=== PATIENT | female | born 1960 | race Caucasian/White ===

== ENCOUNTER 2018-09-24 18:08 | Observation (INO) ==
[2018-09-24] MEDS ORDERED: 0.9 % Sodium Chloride 1,000 ML IVC ONE ×2 (18:16→19:05)
[2018-09-24] MEDS ORDERED: Ondansetron 4 MG/2 ML VIAL IVP ONE (18:21)
[2018-09-24 18:43] LABS: Basophils # 0.1 K/mcL (0.0-0.2); Basophils % 0.7 %; Eosinophils # 0.2 K/mcL (0.0-0.6); Hematocrit 46.2 % (35.3-44.9); Hemoglobin 15.2 g/dL (11.5-15.4); Lymphocytes # 0.7 K/mcL (0.6-4.6); Lymphocytes % 8.2 %; Mean Corpuscular HGB Conc 32.9 g/dL (31.6-35.5); Mean Corpuscular Hemoglobin 32.3 pg (28.0-33.3); Mean Corpuscular Volume 98.1 fL (83.0-100.0); Mean Platelet Volume 10.7 fL (9.4-12.4); Monocytes # 0.9 K/mcL (0.0-1.3); Monocytes % 9.6 %; Neutrophils # 7.1 K/mcL (1.6-8.9); Platelet Count 258 K/mcL (140-400); Red Blood Count 4.71 M/mcL (3.82-4.97); Segmented Neutrophils % 78.5 %
[2018-09-24 19:20] LABS: Calcium 9.9 mg/dL (8.6-10.3); Magnesium 2.4 mg/dL (1.6-2.6)
[2018-09-24 19:21] LABS: Troponin I 0.03 ng/mL (< 0.04)
[2018-09-24] MEDS ORDERED: Insulin Regular, Human 100 UNIT/ML SQ ONE (21:13)
[2018-09-24 21:40] LABS: Bilirubin,Urine Small (Negative); Blood,Urine Small (Negative); Clarity,Urine Cloudy (Clear); Color,Urine Yellow (Yellow); Glucose,Urine (UA) 500 mg/dL (Normal); Ketones,Urine Negative (Negative); Leukocyte Esterase,Urine Negative (Negative); Nitrite,Urine Negative (Negative); PH,Urine 5.5 pH Units (5.0-8.0); Protein,Urine 100 mg/dL (Neg-Trace); Specific Gravity,Urine 1.022 (1.010-1.025); Urobilinogen,Urine Normal (Normal)
[2018-09-24 21:43] LABS: Bacteria,Urine Many per hpf (None-Few); Hyaline Casts,Urine Moderate per lpf (None-Few); Squamous Epithelial Cell,Urine Many per lpf (None-Few); WBC,Urine 15-30 per hpf (0-3)
[2018-09-24 21:49] LABS: Sodium, Urine 64.8 mEq/L
[2018-09-24] MEDS: 0.9 % Sodium Chloride 1,000 ML IVC SCH ×2 (21:49→23:54)
[2018-09-24 22:59] LABS: ABG Base Excess -4 mEq/L (-2 to 3); ABG HCO3 21 mEq/L (21-27); ABG Oxygen Saturation 97 % (95-98); ABG PCO2 35 mmHg (35-45); ABG PH 7.38 pH Units (7.32-7.45); ABG PO2 97 mmHg (85-104); ABG TCO2 22 mEq/L (20-26)
[2018-09-24] MEDS ORDERED: Naloxone 0.4 MG/ML INJ IVP PRN (23:08)
[2018-09-24] MEDS ORDERED: Acetaminophen 325 MG TABLET PO PRN (23:08)
[2018-09-24] MEDS: *HR* HYDROcodone/Acet 5/325 mg TABLET PO PRN (23:53)
[2018-09-25 01:00] LABS: Basophils # 0.1 K/mcL (0.0-0.2); Basophils % 0.6 %; Eosinophils # 0.3 K/mcL (0.0-0.6); Hematocrit 45.3 % (35.3-44.9); Hemoglobin 14.7 g/dL (11.5-15.4); Immature Granulocytes % 0.9 % (0-4); Lymphocytes # 1.2 K/mcL (0.6-4.6); Lymphocytes % 15.3 %; Mean Corpuscular HGB Conc 32.5 g/dL (31.6-35.5); Mean Corpuscular Hemoglobin 32.4 pg (28.0-33.3); Mean Corpuscular Volume 99.8 fL (83.0-100.0); Monocytes % 12.8 %; Neutrophils # 5.3 K/mcL (1.6-8.9); Platelet Count 196 K/mcL (140-400); Red Blood Count 4.54 M/mcL (3.82-4.97); Red Cell Distribution Width 13.2 % (11.5-14.5); Segmented Neutrophils % 66.4 %
[2018-09-25 01:08] LABS: INR 1.1
[2018-09-25 01:20] LABS: Albumin 3.7 g/dL (3.5-5.7); Albumin/Globulin Ratio 1.2 (1.1-2.2); Bilirubin,Total 0.3 mg/dL (0.3-1.0); Calcium 9.1 mg/dL (8.6-10.3); Chol/HDL Ratio 4.6 (0-4.9); Magnesium 2.1 mg/dL (1.6-2.6); Phosphorous 4.8 mg/dL (2.7-4.5); Potassium 3.6 mEq/L (3.5-5.1); Total Protein 6.7 g/dL (6.4-8.9)
[2018-09-25] MEDS: 0.9 % Sodium Chloride 1,000 ML IVC SCH ×2 (08:52)
[2018-09-25] MEDS: *HR* HYDROcodone/Acet 5/325 mg TABLET PO PRN (08:59)
[2018-09-25 12:07] VITALS: BP 134/60
== END 2018-09-25 13:20 | disposition home or self-care (01) ==
LOC: EMEROOARM 18:08 → 3BNU 18:08 → SUATTDRO 22:38 → 3BNU 23:09
PROVIDERS: ADMIT Internal Medicine Nephrology; ATTEND Family Medicine

== ENCOUNTER 2019-12-07 10:23 | Observation (INO) ==
[~2019-12-07 10:23] MED LIST: Povidone-Iodine 45 ML, Sodium Chloride IRRigation 1,000 ML IR ONE
[2019-12-07] MEDS ORDERED: Acetaminophen IV 1,000 MG/100 ML INFUS..BTL IVPB ONE (10:26)
[2019-12-07] MEDS ORDERED: *HR* Meperidine 25 MG/ML SYRINGE IVP PRN (10:27)
[2019-12-07] MEDS ORDERED: Ondansetron 4 MG/2 ML VIAL IVP PRN (10:27)
[2019-12-07] MEDS ORDERED: Promethazine 6.25 MG in Water for inj. (sterile) 20 ML IVPB PRN (10:27)
[2019-12-07] MEDS ORDERED: *HR* HYDROmorphone PF 0.5 MG/0.5 ML SYRINGE IVP PRN (10:27)
[2019-12-07] MEDS ORDERED: Clindamycin 900 MG/50 ML 900 MG/50 ML IV.SOLN IVPB ONE (10:50)
[2019-12-07] MEDS ORDERED: Ringers Solution, Lactated 1,000 ML IVC SCH ×2 (11:00→15:19)
[2019-12-07] MEDS ORDERED: Scopolamine Patch 1.5 MG PATCH.TD72 TD ONE (11:22)
[2019-12-07] MEDS ORDERED: *HR* FentaNYL (PF) 100 MCG/2 ML VIAL ONE (12:04)
[2019-12-07] MEDS ORDERED: Dexamethasone 4 MG/ML VIAL ONE (12:04)
[2019-12-07] MEDS ORDERED: *HR* Propofol 200 MG/20 ML VIAL IVP ONE (12:04)
[2019-12-07] MEDS ORDERED: Lidocaine -MPF 4% 5 ML AMPUL ONE (12:04)
[2019-12-07] MEDS ORDERED: *HR* Rocuronium Bromide 50 MG/5 ML VIAL ONE (12:04)
[2019-12-07] MEDS ORDERED: *HR* Midazolam HCl 2 MG/2 ML VIAL ONE (12:04)
[2019-12-07] MEDS ORDERED: Ondansetron 4 MG/2 ML VIAL ONE (12:04)
[2019-12-07] MEDS ORDERED: Lidocaine -MPF 2% 2 ML VIAL ONE (12:04)
[2019-12-07] MEDS ORDERED: Tranexamic Acid 1,000 MG/10 ML VIAL ONE (12:09)
[2019-12-07] MEDS ORDERED: Vancomycin 1,000 MG VIAL ONE (12:09)
[2019-12-07] MEDS ORDERED: Ethanol\\Acetic Acid\\Na Ace\\Ben 1,000 ML IRRIG.SOLN IR ONE (12:09)
[2019-12-07] MEDS ORDERED: *HR* PHENYLEPHRINE 1,000 MCG/10 ML SYRINGE IVP ONE (12:53)
[2019-12-07] MEDS ORDERED: *HR* HYDROMORPHONE 2 MG/ML VIAL ONE (13:34)
[2019-12-07 14:48] LABS: Hematocrit 27.4 % (35.3-44.9)
[2019-12-07 14:51] LABS: Hemoglobin 8.8 g/dL (11.5-15.4)
[2019-12-07] MEDS ORDERED: D5% in Water 1,000 ML IVC PRN (15:19)
[2019-12-07] MEDS ORDERED: Dextrose Gel 15 GM/37.5 ML TUBE PO PRN ×2 (15:19)
[2019-12-07] MEDS ORDERED: *HR* Promethazine 25 MG/ML VIAL IM PRN (15:19)
[2019-12-07] MEDS ORDERED: Sennosides 8.6 MG TABLET PO PRN (15:19)
[2019-12-07] MEDS ORDERED: MOM Conc 10 ML UD.LIQ PO PRN (15:19)
[2019-12-07] MEDS ORDERED: *HR* Dextrose 50 % in Water (Vial) 50 ML VIAL IVP PRN (15:19)
[2019-12-07] MEDS ORDERED: Naloxone 0.4 MG/ML INJ IVP PRN (15:19)
[2019-12-07] MEDS ORDERED: Ibuprofen 200 MG TABLET PO PRN (15:19)
[2019-12-07] MEDS ORDERED: HYDROcodone BIT/Homatropine 5 MG TABLET PO PRN (15:19)
[2019-12-07] MEDS ORDERED: CAFFEINE PO PRN (15:19)
[2019-12-07] MEDS ORDERED: ASPIRIN PO PRN (15:19)
[2019-12-07] MEDS: Insulin LISPRO 300 UNITS/3 ML VIAL SQ SCH ×2 (18:12→21:15)
[2019-12-07] MEDS: Ascorbic Acid 500 MG TABLET PO SCH (18:14)
[2019-12-07] MEDS: *HR* OxyCODONE Immed Rel 5 MG TABLET PO PRN (20:51)
[2019-12-07] MEDS: Clindamycin 900 MG/50 ML 900 MG/50 ML IV.SOLN IVPB SCH (20:52)
[2019-12-07] MEDS: Ondansetron 4 MG/2 ML VIAL IVP PRN (20:55)
[2019-12-08 01:53] LABS: Basophils % 0.3 %; Hematocrit 30.7 % (35.3-44.9); Hemoglobin 9.6 g/dL (11.5-15.4); Immature Granulocytes % 1.1 % (0-4); Lymphocytes # 0.5 K/mcL (0.6-4.6); Lymphocytes % 7.5 %; Mean Corpuscular HGB Conc 31.3 g/dL (31.6-35.5); Mean Corpuscular Volume 102.3 fL (83.0-100.0); Mean Platelet Volume 10.3 fL (9.4-12.4); Monocytes # 0.5 K/mcL (0.0-1.3); Monocytes % 7.3 %; Platelet Count 237 K/mcL (140-400); Red Cell Distribution Width 13.1 % (11.5-14.5); Segmented Neutrophils % 83.8 %; White Blood Count 7.1 K/mcL (4.3-11.1)
[2019-12-08 02:04] LABS: BUN/Creatinine Ratio 28 (6-26); Blood Urea Nitrogen 27 mg/dL (6-20); Calcium 8.7 mg/dL (8.6-10.3); Carbon Dioxide 26 mEq/L (23-29); Chloride 103 mEq/L (98-107); Glucose 356 mg/dL (70-105); Osmolality,Calculated 301 (280-300); Potassium 4.5 mEq/L (3.5-5.1); Sodium 136 mEq/L (136-145); eGFR For African Americans > 60 (> 60); eGFR For Non-African Americans 58 (> 60)
[2019-12-08] MEDS: Clindamycin 900 MG/50 ML 900 MG/50 ML IV.SOLN IVPB SCH (03:27)
[2019-12-08] MEDS: *HR* OxyCODONE Immed Rel 5 MG TABLET PO PRN ×4 (03:51→20:36)
[2019-12-08] MEDS: lisinopriL 20 MG TABLET PO SCH (08:02)
[2019-12-08] MEDS: Ascorbic Acid 500 MG TABLET PO SCH ×2 (08:03→17:45)
[2019-12-08] MEDS: Multivit/Ca/Min/Fe/FA 1 TAB TABLET PO SCH (08:03)
[2019-12-08] MEDS: Furosemide 40 MG TABLET PO SCH (08:03)
[2019-12-08] MEDS: hydroCHLOROthiazide 25 MG TABLET PO SCH (08:03)
[2019-12-08] MEDS: GlipiZIDE 5 MG TABLET PO SCH (08:03)
[2019-12-08] MEDS: Insulin LISPRO 300 UNITS/3 ML VIAL SQ SCH ×4 (08:04→21:06)
[2019-12-08] MEDS: (Alogliptin Benzoate [Alogliptin] 25 MG) PO SCH (09:21)
[2019-12-08] MEDS: Aspirin Enteric Coated 81 MG Tablet PO SCH (14:28)
[2019-12-09] MEDS: *HR* OxyCODONE Immed Rel 5 MG TABLET PO PRN ×3 (00:51→16:51)
[2019-12-09 05:58] LABS: Basophils % 0.5 %; Eosinophils % 3.3 %; Hemoglobin 9.5 g/dL (11.5-15.4); Immature Granulocytes % 0.4 % (0-4); Lymphocytes % 20.9 %; Mean Corpuscular HGB Conc 31.7 g/dL (31.6-35.5); Mean Corpuscular Volume 104.2 fL (83.0-100.0); Mean Platelet Volume 10.4 fL (9.4-12.4); Monocytes % 11.1 %; Platelet Count 243 K/mcL (140-400); Red Blood Count 2.88 M/mcL (3.82-4.97); Red Cell Distribution Width 13.2 % (11.5-14.5); Segmented Neutrophils % 63.8 %; White Blood Count 9.3 K/mcL (4.3-11.1)
[2019-12-09 05:59] LABS: Basophils # 0.1 K/mcL (0.0-0.2); Eosinophils # 0.3 K/mcL (0.0-0.6); Lymphocytes # 1.9 K/mcL (0.6-4.6); Neutrophils # 5.9 K/mcL (1.6-8.9)
[2019-12-09 06:18] LABS: BUN/Creatinine Ratio 38 (6-26); Blood Urea Nitrogen 33 mg/dL (6-20); Calcium 9.3 mg/dL (8.6-10.3); Carbon Dioxide 27 mEq/L (23-29); Chloride 103 mEq/L (98-107); Glucose 112 mg/dL (70-105); Osmolality,Calculated 294 (280-300); Potassium 4.1 mEq/L (3.5-5.1); Sodium 138 mEq/L (136-145); eGFR For African Americans > 60 (> 60); eGFR For Non-African Americans > 60 (> 60)
[2019-12-09] MEDS: hydroCHLOROthiazide 25 MG TABLET PO SCH (07:53)
[2019-12-09] MEDS: lisinopriL 20 MG TABLET PO SCH (07:54)
[2019-12-09] MEDS: Ascorbic Acid 500 MG TABLET PO SCH ×2 (07:54→16:46)
[2019-12-09] MEDS: Furosemide 40 MG TABLET PO SCH (07:54)
[2019-12-09] MEDS: Multivit/Ca/Min/Fe/FA 1 TAB TABLET PO SCH (07:55)
[2019-12-09] MEDS: GlipiZIDE 5 MG TABLET PO SCH (07:55)
[2019-12-09] MEDS: Aspirin Enteric Coated 81 MG Tablet PO SCH (07:55)
[2019-12-09] MEDS: Insulin LISPRO 300 UNITS/3 ML VIAL SQ SCH ×4 (09:40→21:33)
[2019-12-09] MEDS: (Alogliptin Benzoate [Alogliptin] 25 MG) PO SCH (09:41)
[2019-12-09] MEDS: Ondansetron 4 MG/2 ML VIAL IVP PRN (18:04)
[2019-12-10 04:52] LABS: Hematocrit 26.6 % (35.3-44.9); Hemoglobin 8.6 g/dL (11.5-15.4); Mean Corpuscular HGB Conc 32.3 g/dL (31.6-35.5); Mean Corpuscular Hemoglobin 32.8 pg (28.0-33.3); Mean Corpuscular Volume 101.5 fL (83.0-100.0); Platelet Count 217 K/mcL (140-400); Red Blood Count 2.62 M/mcL (3.82-4.97); Red Cell Distribution Width 13.2 % (11.5-14.5); White Blood Count 8.3 K/mcL (4.3-11.1)
[2019-12-10 05:04] LABS: BUN/Creatinine Ratio 48 (6-26); Blood Urea Nitrogen 38 mg/dL (6-20); Calcium 8.8 mg/dL (8.6-10.3); Carbon Dioxide 27 mEq/L (23-29); Chloride 102 mEq/L (98-107); Glucose 209 mg/dL (70-105); Osmolality,Calculated 295 (280-300); Potassium 4.1 mEq/L (3.5-5.1); Sodium 135 mEq/L (136-145); eGFR For African Americans > 60 (> 60); eGFR For Non-African Americans > 60 (> 60)
[2019-12-10] MEDS: Multivit/Ca/Min/Fe/FA 1 TAB TABLET PO SCH (08:17)
[2019-12-10] MEDS: Aspirin Enteric Coated 81 MG Tablet PO SCH (08:17)
[2019-12-10] MEDS: *HR* OxyCODONE Immed Rel 5 MG TABLET PO PRN ×3 (08:17→22:25)
[2019-12-10] MEDS: Furosemide 40 MG TABLET PO SCH (08:18)
[2019-12-10] MEDS: hydroCHLOROthiazide 25 MG TABLET PO SCH (08:18)
[2019-12-10] MEDS: lisinopriL 20 MG TABLET PO SCH (08:18)
[2019-12-10] MEDS: (Alogliptin Benzoate [Alogliptin] 25 MG) PO SCH (08:18)
[2019-12-10] MEDS: Insulin LISPRO 300 UNITS/3 ML VIAL SQ SCH ×4 (08:18→22:21)
[2019-12-10] MEDS: GlipiZIDE 5 MG TABLET PO SCH (08:18)
[2019-12-10] MEDS: Ascorbic Acid 500 MG TABLET PO SCH ×2 (08:18→15:59)
[2019-12-10] MEDS: Ondansetron 4 MG/2 ML VIAL IVP PRN (10:46)
[2019-12-11] MEDS: *HR* OxyCODONE Immed Rel 5 MG TABLET PO PRN (04:43)
[2019-12-11] MEDS: Aspirin Enteric Coated 81 MG Tablet PO SCH (09:00)
[2019-12-11] MEDS: Insulin LISPRO 300 UNITS/3 ML VIAL SQ SCH ×3 (09:00→17:37)
[2019-12-11] MEDS: lisinopriL 20 MG TABLET PO SCH (09:01)
[2019-12-11] MEDS: Furosemide 40 MG TABLET PO SCH (09:01)
[2019-12-11] MEDS: hydroCHLOROthiazide 25 MG TABLET PO SCH (09:01)
[2019-12-11] MEDS: (Alogliptin Benzoate [Alogliptin] 25 MG) PO SCH (09:01)
[2019-12-11] MEDS: Ascorbic Acid 500 MG TABLET PO SCH ×2 (09:01→17:38)
[2019-12-11] MEDS: GlipiZIDE 5 MG TABLET PO SCH (09:01)
[2019-12-11] MEDS: Multivit/Ca/Min/Fe/FA 1 TAB TABLET PO SCH (09:01)
[2019-12-11] MEDS: Ondansetron 4 MG/2 ML VIAL IVP PRN ×2 (10:19→22:11)
[2019-12-11] MEDS ORDERED: Scopolamine Patch 1.5 MG PATCH.TD72 TD ONE (10:20)
[2019-12-11 12:26] LABS: Hematocrit 29.4 % (35.3-44.9); Hemoglobin 9.4 g/dL (11.5-15.4)
[2019-12-12 04:53] LABS: Hematocrit 29.4 % (35.3-44.9); Hemoglobin 9.3 g/dL (11.5-15.4); Mean Corpuscular HGB Conc 31.6 g/dL (31.6-35.5); Mean Corpuscular Hemoglobin 32.1 pg (28.0-33.3); Mean Corpuscular Volume 101.4 fL (83.0-100.0); Mean Platelet Volume 9.8 fL (9.4-12.4); Platelet Count 283 K/mcL (140-400); Red Cell Distribution Width 13.3 % (11.5-14.5); White Blood Count 9.3 K/mcL (4.3-11.1)
[2019-12-12 05:07] LABS: Calcium 9.3 mg/dL (8.6-10.3); Potassium 4.4 mEq/L (3.5-5.1)
[2019-12-12 07:34] VITALS: BP 128/74
[2019-12-12] MEDS: Furosemide 40 MG TABLET PO SCH (09:08)
[2019-12-12] MEDS: lisinopriL 20 MG TABLET PO SCH (09:09)
[2019-12-12] MEDS: Aspirin Enteric Coated 81 MG Tablet PO SCH (09:09)
[2019-12-12] MEDS: Insulin LISPRO 300 UNITS/3 ML VIAL SQ SCH ×3 (09:09→11:29)
[2019-12-12] MEDS: Ascorbic Acid 500 MG TABLET PO SCH (09:09)
[2019-12-12] MEDS: GlipiZIDE 5 MG TABLET PO SCH (09:09)
[2019-12-12] MEDS: hydroCHLOROthiazide 25 MG TABLET PO SCH (09:09)
[2019-12-12] MEDS: Multivit/Ca/Min/Fe/FA 1 TAB TABLET PO SCH (09:09)
[2019-12-12] MEDS: (Alogliptin Benzoate [Alogliptin] 25 MG) PO SCH (10:20)
[2019-12-12] MEDS ORDERED: MOM Conc 10 ML UD.LIQ PO ONE (10:34)
[2019-12-12] MEDS ORDERED: Sennosides/Docusate Sodium TABLET PO ONE (10:35)
[2019-12-12 13:15] LABS: Adenovirus Not Detected (Not Detect); Bordetella Pertussis Not Detected (Not Detect); Chlamydophila pneumoniae Not Detected (Not Detect); Coronavirus 229E Not Detected (Not Detect); Coronavirus HKU1 Not Detected (Not Detect); Coronavirus NL63 Not Detected (Not Detect); Coronavirus OC43 Not Detected (Not Detect); Human Metapneumovirus Not Detected (Not Detect); Human Rhinovirus/Enterovirus Not Detected (Not Detect); Influenza A Subtype 2009 H1 Not Detected (Not Detect); Influenza B Not Detected (Not Detect); Mycoplasma pneumoniae Not Detected (Not Detect); Parainfluenza Virus 1 Not Detected (Not Detect); Parainfluenza Virus 2 Not Detected (Not Detect); Parainfluenza Virus 3 Not Detected (Not Detect); Parainfluenza Virus 4 Not Detected (Not Detect); Respiratory Syncytial Virus Not Detected (Not Detect); SARS-CoV-2 Not Detected (Not Detect)
== END 2019-12-12 15:11 ==
LOC: 3NENU 10:23 → SAMDAY 10:23 → 3NENU 15:35
PROVIDERS: ADMIT Orthopaedic Surgery; ATTEND Orthopaedic Surgery

== ENCOUNTER 2021-03-31 11:46 | Inpatient (IN) ==
[2021-03-31] MEDS: Nitroglycerin 0.4 MG TAB.SUBL SL PRN ×3 (12:30→12:45)
[2021-03-31 12:53] LABS: Basophils # 0.1 K/mcL (0.0-0.2); Basophils % 0.7 %; Eosinophils # 0.2 K/mcL (0.0-0.6); Eosinophils % 3.2 %; Hemoglobin 15.4 g/dL (11.5-15.4); Immature Granulocytes % 0.8 % (0-4); Lymphocytes # 1.2 K/mcL (0.6-4.6); Lymphocytes % 16.5 %; Mean Corpuscular HGB Conc 32.1 g/dL (31.6-35.5); Mean Corpuscular Volume 96.8 fL (83.0-100.0); Mean Platelet Volume 10.8 fL (9.4-12.4); Monocytes # 0.8 K/mcL (0.0-1.3); Monocytes % 10.4 %; Platelet Count 288 K/mcL (140-400); Red Blood Count 4.96 M/mcL (3.82-4.97); Red Cell Distribution Width 13.3 % (11.5-14.5); Segmented Neutrophils % 68.4 %; White Blood Count 7.2 K/mcL (4.3-11.1)
[2021-03-31 12:58] LABS: Prothrombin Time 11.4 Seconds (9.4-12.1)
[2021-03-31 13:01] LABS: Activated Partial Thrombo Time 35.1 Seconds (26.0-36.0)
[2021-03-31 13:05] LABS: Alanine Aminotransferase 10 Units/L (7-52); Albumin 3.5 g/dL (3.5-5.7); Albumin/Globulin Ratio 0.9 (1.1-2.2); Alkaline Phosphatase 137 Units/L (34-104); Aspartate Amino Transferase 12 Units/L (13-39); BUN/Creatinine Ratio 16 (6-26); Bilirubin,Indirect 0.3 mg/dL (0.0-1.0); Bilirubin,Total 0.3 mg/dL (0.3-1.0); Blood Urea Nitrogen 13 mg/dL (6-20); Carbon Dioxide 27 mEq/L (23-29); Chloride 100 mEq/L (98-107); Globulin 3.7 g/dL (2.4-3.5); Glucose 210 mg/dL (70-105); Lipase 26 Units/L (11-82); Osmolality,Calculated 292 (280-300); Potassium 3.5 mEq/L (3.5-5.1); Sodium 138 mEq/L (136-145); Total Protein 7.2 g/dL (6.4-8.9); Troponin I < 0.03 ng/mL (< 0.04); eGFR For African Americans > 60 (> 60); eGFR For Non-African Americans > 60 (> 60)
[2021-03-31] MEDS ORDERED: Ondansetron 4 MG/2 ML VIAL IVP ONE (13:07)
[2021-03-31] MEDS ORDERED: Isovue-370 500 ML BOTTLE IVP ONE (13:07)
[2021-03-31] MEDS ORDERED: Morphine Sulfate 2 MG/ML SYRINGE IVP ONE ×2 (13:07→16:46)
[2021-03-31] MEDS: niCARdipine 20 MG/200 ML MLS IVC SCH ×2 (13:40→17:07)
[2021-03-31] MEDS ORDERED: Nitroglycerin 0.4 MG TAB.SUBL SL ONE (16:46)
[2021-03-31] MEDS ORDERED: Naloxone 0.4 MG/ML INJ IVP PRN (17:25)
[2021-03-31] MEDS ORDERED: Dextrose Gel 15 GM/37.5 ML TUBE PO PRN ×2 (17:27)
[2021-03-31] MEDS ORDERED: D5% in Water 1,000 ML IVC PRN (17:27)
[2021-03-31] MEDS ORDERED: *HR* Dextrose 50 % in Water (Syg) 50 ML SYRINGE IVP PRN (17:27)
[2021-03-31] MEDS: lisinopriL 5 MG TABLET PO SCH (18:53)
[2021-03-31] MEDS: *HR* Heparin 5,000 UNIT/ML VIAL SQ SCH (18:53)
[2021-03-31] MEDS ORDERED: Prochlorperazine 10 MG/2 ML VIAL IVP SCH (19:00)
[2021-03-31] MEDS ORDERED: *HR* Metoprolol 5 MG/5 ML VIAL IVP ONE (23:36)
[2021-04-01 01:43] LABS: BUN/Creatinine Ratio 15 (6-26); Blood Urea Nitrogen 12 mg/dL (6-20); Calcium 8.6 mg/dL (8.6-10.3); Carbon Dioxide 20 mEq/L (23-29); Chloride 100 mEq/L (98-107); Glucose 260 mg/dL (70-105); Osmolality,Calculated 289 (280-300); Potassium 3.8 mEq/L (3.5-5.1); Sodium 135 mEq/L (136-145); Troponin I < 0.03 ng/mL (< 0.04); eGFR For African Americans > 60 (> 60); eGFR For Non-African Americans > 60 (> 60)
[2021-04-01] MEDS: *HR* Heparin 5,000 UNIT/ML VIAL SQ SCH ×3 (05:09→20:03)
[2021-04-01] MEDS: Insulin LISPRO 300 UNITS/3 ML VIAL SUBQ SCH ×3 (07:19→17:12)
[2021-04-01] MEDS: lisinopriL 5 MG TABLET PO SCH (07:37)
[2021-04-01] MEDS: Acetaminophen 325 MG TABLET PO PRN (07:51)
[2021-04-01] MEDS ORDERED: Perflutren Lipid Microsphere 1.3 ML in 0.9 % Sodium Chloride 8.7 ML IVP PRN (08:16)
[2021-04-01] MEDS ORDERED: lisinopriL 10 MG TABLET PO STA (08:20)
[2021-04-01] MEDS ORDERED: Morphine Sulfate 2 MG/ML SYRINGE IVP PRN (08:26)
[2021-04-01] MEDS ORDERED: carvediloL 6.25 MG TABLET PO SCH (09:04)
[2021-04-01] MEDS: Aspirin 81 MG TAB.CHEW PO SCH (09:19)
[2021-04-01] MEDS: NIFEdipine XL (24 HR) 60 MG TAB.ER.24 PO SCH (09:19)
[2021-04-01 11:10] LABS: Chol/HDL Ratio 4.4 (0-4.9)
[2021-04-01] MEDS: Ondansetron 4 MG/2 ML VIAL IVP PRN (12:10)
[2021-04-01] MEDS: Prochlorperazine 10 MG/2 ML VIAL IM PRN (13:47)
[2021-04-01] MEDS: Sucralfate 1 GM TABLET PO SCH (16:32)
[2021-04-02] MEDS: *HR* Heparin 5,000 UNIT/ML VIAL SQ SCH ×3 (05:10→21:33)
[2021-04-02] MEDS ORDERED: *HR* Metoprolol 5 MG/5 ML VIAL IVP ONE (06:09)
[2021-04-02] MEDS ORDERED: Regadenoson 0.4 MG/5 ML SYRINGE IVP ONE (06:33)
[2021-04-02 07:00] LABS: Basophils % 0.5 %; Eosinophils # 0.2 K/mcL (0.0-0.6); Hemoglobin 14.5 g/dL (11.5-15.4); Immature Granulocytes % 0.8 % (0-4); Lymphocytes # 1.1 K/mcL (0.6-4.6); Lymphocytes % 14.3 %; Mean Corpuscular HGB Conc 32.2 g/dL (31.6-35.5); Mean Corpuscular Hemoglobin 31.7 pg (28.0-33.3); Mean Corpuscular Volume 98.3 fL (83.0-100.0); Mean Platelet Volume 10.8 fL (9.4-12.4); Monocytes # 0.7 K/mcL (0.0-1.3); Monocytes % 9.4 %; Neutrophils # 5.7 K/mcL (1.6-8.9); Platelet Count 270 K/mcL (140-400); Red Blood Count 4.58 M/mcL (3.82-4.97); Red Cell Distribution Width 13.9 % (11.5-14.5); White Blood Count 7.9 K/mcL (4.3-11.1)
[2021-04-02 07:30] LABS: BUN/Creatinine Ratio 19 (6-26); Blood Urea Nitrogen 18 mg/dL (6-20); Calcium 9.1 mg/dL (8.6-10.3); Carbon Dioxide 29 mEq/L (23-29); Chloride 97 mEq/L (98-107); Glucose 301 mg/dL (70-105); Osmolality,Calculated 293 (280-300); Phosphorous 3.3 mg/dL (2.7-4.5); Potassium 3.4 mEq/L (3.5-5.1); Sodium 135 mEq/L (136-145); eGFR For African Americans > 60 (> 60); eGFR For Non-African Americans > 60 (> 60)
[2021-04-02] MEDS: Insulin LISPRO 300 UNITS/3 ML VIAL SUBQ SCH ×4 (08:13→21:31)
[2021-04-02] MEDS: Sucralfate 1 GM TABLET PO SCH ×2 (08:13→16:07)
[2021-04-02] MEDS: lisinopriL 5 MG TABLET PO SCH (10:43)
[2021-04-02] MEDS: Aspirin 81 MG TAB.CHEW PO SCH (10:44)
[2021-04-02] MEDS: NIFEdipine XL (24 HR) 60 MG TAB.ER.24 PO SCH (10:44)
[2021-04-02 16:02] LABS: Estimated Average Glucose 203 mg/dl; Hemoglobin A1C 8.7 %
[2021-04-02] MEDS: Acetaminophen 325 MG TABLET PO PRN (21:33)
[2021-04-03 03:31] LABS: Basophils # 0.1 K/mcL (0.0-0.2); Basophils % 0.7 %; Eosinophils # 0.3 K/mcL (0.0-0.6); Eosinophils % 2.9 %; Hematocrit 46.5 % (35.3-44.9); Hemoglobin 15.2 g/dL (11.5-15.4); Immature Granulocytes % 1.2 % (0-4); Lymphocytes # 1.4 K/mcL (0.6-4.6); Lymphocytes % 16.7 %; Mean Corpuscular HGB Conc 32.7 g/dL (31.6-35.5); Mean Corpuscular Hemoglobin 32.3 pg (28.0-33.3); Mean Corpuscular Volume 98.9 fL (83.0-100.0); Mean Platelet Volume 10.5 fL (9.4-12.4); Monocytes % 11.7 %; Neutrophils # 5.8 K/mcL (1.6-8.9); Platelet Count 251 K/mcL (140-400); Red Cell Distribution Width 13.4 % (11.5-14.5); Segmented Neutrophils % 66.8 %; White Blood Count 8.6 K/mcL (4.3-11.1)
[2021-04-03 03:45] LABS: BUN/Creatinine Ratio 19 (6-26); Blood Urea Nitrogen 14 mg/dL (6-20); Calcium 9.1 mg/dL (8.6-10.3); Carbon Dioxide 29 mEq/L (23-29); Chloride 99 mEq/L (98-107); Glucose 261 mg/dL (70-105); Magnesium 1.8 mg/dL (1.6-2.6); Osmolality,Calculated 290 (280-300); Phosphorous 2.9 mg/dL (2.7-4.5); Sodium 135 mEq/L (136-145); eGFR For African Americans > 60 (> 60); eGFR For Non-African Americans > 60 (> 60)
[2021-04-03] MEDS: *HR* Heparin 5,000 UNIT/ML VIAL SQ SCH ×3 (04:08→21:57)
[2021-04-03] MEDS: Aspirin 81 MG TAB.CHEW PO SCH (08:35)
[2021-04-03] MEDS: NIFEdipine XL (24 HR) 60 MG TAB.ER.24 PO SCH (08:35)
[2021-04-03] MEDS: lisinopriL 5 MG TABLET PO SCH (08:35)
[2021-04-03] MEDS: Sucralfate 1 GM TABLET PO SCH ×2 (08:35→15:53)
[2021-04-03] MEDS: Insulin LISPRO 300 UNITS/3 ML VIAL SUBQ SCH ×4 (08:35→22:01)
[2021-04-03] MEDS ORDERED: 0.9 % Sodium Chloride 2,000 ML ONE (11:33)
[2021-04-03] MEDS ORDERED: *HR* FentaNYL (PF) 100 MCG/2 ML VIAL ONE (11:33)
[2021-04-03] MEDS ORDERED: *HR* Heparin 10,000 UNIT/10 ML VIAL ONE (11:33)
[2021-04-03] MEDS ORDERED: ISOVUE-370 200 ML INFUS..BTL ONE (11:33)
[2021-04-03] MEDS ORDERED: Heparin 1,000 UNITS/500 mL 500 ML ONE (11:33)
[2021-04-03] MEDS ORDERED: *HR* Midazolam HCl 2 MG/2 ML VIAL ONE (11:33)
[2021-04-03] MEDS ORDERED: Nitroglycerin 1,000 MCG/5 ML VIAL IV ONE (11:34)
[2021-04-03] MEDS ORDERED: Ondansetron 4 MG/2 ML VIAL ONE (12:01)
[2021-04-03] MEDS: Furosemide 20 MG/2 ML VIAL IVP SCH ×2 (14:03→22:00)
[2021-04-03] MEDS ORDERED: DiphenhydraMINE CREAM 28.4 GM TUBE TP PRN (14:13)
[2021-04-03] MEDS: Budesonide/Formoterol 160/4.5 1 PUFF INH IH SCH (19:21)
[2021-04-04 05:36] LABS: Basophils # 0.1 K/mcL (0.0-0.2); Basophils % 0.6 %; Eosinophils # 0.3 K/mcL (0.0-0.6); Hemoglobin 14.4 g/dL (11.5-15.4); Immature Granulocytes % 1.1 % (0-4); Lymphocytes # 1.2 K/mcL (0.6-4.6); Lymphocytes % 14.3 %; Mean Corpuscular Hemoglobin 31.5 pg (28.0-33.3); Mean Corpuscular Volume 98.5 fL (83.0-100.0); Monocytes # 0.8 K/mcL (0.0-1.3); Monocytes % 9.9 %; Neutrophils # 5.9 K/mcL (1.6-8.9); Platelet Count 256 K/mcL (140-400); Red Blood Count 4.57 M/mcL (3.82-4.97); Red Cell Distribution Width 13.6 % (11.5-14.5); Segmented Neutrophils % 71.1 %; White Blood Count 8.3 K/mcL (4.3-11.1)
[2021-04-04 05:54] LABS: BUN/Creatinine Ratio 24 (6-26); Blood Urea Nitrogen 21 mg/dL (6-20); Calcium 9.3 mg/dL (8.6-10.3); Carbon Dioxide 31 mEq/L (23-29); Chloride 97 mEq/L (98-107); Glucose 228 mg/dL (70-105); Magnesium 1.8 mg/dL (1.6-2.6); Osmolality,Calculated 292 (280-300); Phosphorous 3.5 mg/dL (2.7-4.5); Potassium 4.1 mEq/L (3.5-5.1); Sodium 136 mEq/L (136-145); eGFR For African Americans > 60 (> 60); eGFR For Non-African Americans > 60 (> 60)
[2021-04-04] MEDS: *HR* Heparin 5,000 UNIT/ML VIAL SQ SCH ×3 (06:41→20:27)
[2021-04-04] MEDS: Sucralfate 1 GM TABLET PO SCH ×2 (06:41→16:29)
[2021-04-04] MEDS: Budesonide/Formoterol 160/4.5 1 PUFF INH IH SCH ×2 (08:32→19:40)
[2021-04-04] MEDS: NIFEdipine XL (24 HR) 60 MG TAB.ER.24 PO SCH (08:50)
[2021-04-04] MEDS: Aspirin 81 MG TAB.CHEW PO SCH (08:51)
[2021-04-04] MEDS: Insulin LISPRO 300 UNITS/3 ML VIAL SUBQ SCH ×4 (08:51→20:38)
[2021-04-04] MEDS: lisinopriL 5 MG TABLET PO SCH (08:51)
[2021-04-04] MEDS: Ondansetron 4 MG/2 ML VIAL IVP PRN (08:52)
[2021-04-04] MEDS: Furosemide 20 MG/2 ML VIAL IVP SCH ×2 (08:52→09:48)
[2021-04-04] MEDS: Acetaminophen 325 MG TABLET PO PRN (08:58)
[2021-04-04] MEDS ORDERED: polyethylene glycoL 3350 17 GM POWD.PACK PO PRN (11:33)
[2021-04-04] MEDS ORDERED: Sennosides 8.6 MG TABLET PO PRN (11:34)
[2021-04-04 12:38] LABS: Amorphous Sediment,Urine Few per hpf (None-Few); Bacteria,Urine Few per hpf (None-Few); Bilirubin,Urine Negative (Negative); Blood,Urine Negative (Negative); Clarity,Urine Clear (Clear); Color,Urine Light-Yellow (Yellow); Glucose,Urine (UA) 70 mg/dL (Normal); Hyaline Casts,Urine Many per lpf (None Seen); Ketones,Urine Negative (Negative); Leukocyte Esterase,Urine Negative (Negative); Mucus,Urine Few per lpf (None-Few); Nitrite,Urine Negative (Negative); Protein,Urine >=300 mg/dL (Neg-Trace); RBC,Urine 0-3 per hpf (0-3); Specific Gravity,Urine 1.015 (1.010-1.025); Squamous Epithelial Cell,Urine Few per hpf (None-Few); Urobilinogen,Urine Normal (Normal); WBC,Urine 0-3 per hpf (0-3)
[2021-04-04] MEDS: Morphine Sulfate 2 MG/ML SYRINGE IVP PRN (20:29)
[2021-04-05 02:02] LABS: Basophils # 0.1 K/mcL (0.0-0.2); Basophils % 0.9 %; Eosinophils # 0.3 K/mcL (0.0-0.6); Eosinophils % 3.2 %; Hematocrit 45.2 % (35.3-44.9); Hemoglobin 14.1 g/dL (11.5-15.4); Immature Granulocytes % 1.9 % (0-4); Lymphocytes # 1.1 K/mcL (0.6-4.6); Mean Corpuscular HGB Conc 31.2 g/dL (31.6-35.5); Mean Corpuscular Volume 99.3 fL (83.0-100.0); Mean Platelet Volume 11.1 fL (9.4-12.4); Monocytes # 0.9 K/mcL (0.0-1.3); Monocytes % 11.5 %; Neutrophils # 5.3 K/mcL (1.6-8.9); Platelet Count 252 K/mcL (140-400); Red Blood Count 4.55 M/mcL (3.82-4.97); Red Cell Distribution Width 13.8 % (11.5-14.5); Segmented Neutrophils % 68.5 %; White Blood Count 7.7 K/mcL (4.3-11.1)
[2021-04-05 02:20] LABS: Calcium 8.9 mg/dL (8.6-10.3); Magnesium 1.7 mg/dL (1.6-2.6); Phosphorous 4.2 mg/dL (2.7-4.5); Potassium 4.3 mEq/L (3.5-5.1)
[2021-04-05] MEDS: *HR* Heparin 5,000 UNIT/ML VIAL SQ SCH ×3 (04:40→20:58)
[2021-04-05] MEDS: Morphine Sulfate 2 MG/ML SYRINGE IVP PRN (04:54)
[2021-04-05] MEDS: Sucralfate 1 GM TABLET PO SCH ×2 (08:07→16:00)
[2021-04-05] MEDS: Acetaminophen 325 MG TABLET PO PRN ×3 (08:07→23:31)
[2021-04-05] MEDS: NIFEdipine XL (24 HR) 60 MG TAB.ER.24 PO SCH (08:07)
[2021-04-05] MEDS: Aspirin 81 MG TAB.CHEW PO SCH (08:07)
[2021-04-05] MEDS: lisinopriL 5 MG TABLET PO SCH (08:07)
[2021-04-05] MEDS: Insulin LISPRO 300 UNITS/3 ML VIAL SUBQ SCH ×4 (08:08→20:58)
[2021-04-05] MEDS: Furosemide 20 MG/2 ML VIAL IVP SCH (08:09)
[2021-04-05] MEDS: Budesonide/Formoterol 160/4.5 1 PUFF INH IH SCH ×2 (08:51→19:27)
[2021-04-05 11:23] LABS: BUN/Creatinine Ratio 27 (6-26); Blood Urea Nitrogen 28 mg/dL (6-20); Calcium 9.3 mg/dL (8.6-10.3); Carbon Dioxide 30 mEq/L (23-29); Chloride 97 mEq/L (98-107); Glucose 316 mg/dL (70-105); Osmolality,Calculated 298 (280-300); Potassium 4.2 mEq/L (3.5-5.1); Sodium 135 mEq/L (136-145); eGFR For African Americans > 60 (> 60); eGFR For Non-African Americans 55 (> 60)
[2021-04-06] MEDS ORDERED: *HR* LORazepam 2 MG/ML VIAL IVP ONE (03:02)
[2021-04-06 03:35] LABS: Basophils # 0.1 K/mcL (0.0-0.2); Basophils % 0.8 %; Eosinophils # 0.3 K/mcL (0.0-0.6); Eosinophils % 3.6 %; Hemoglobin 13.2 g/dL (11.5-15.4); Immature Granulocytes % 1.5 % (0-4); Lymphocytes # 1.1 K/mcL (0.6-4.6); Lymphocytes % 14.9 %; Mean Corpuscular HGB Conc 31.4 g/dL (31.6-35.5); Mean Corpuscular Hemoglobin 31.3 pg (28.0-33.3); Mean Corpuscular Volume 99.5 fL (83.0-100.0); Mean Platelet Volume 11.2 fL (9.4-12.4); Monocytes # 0.8 K/mcL (0.0-1.3); Monocytes % 10.4 %; Platelet Count 227 K/mcL (140-400); Red Blood Count 4.22 M/mcL (3.82-4.97); Red Cell Distribution Width 13.7 % (11.5-14.5); Segmented Neutrophils % 68.8 %; White Blood Count 7.3 K/mcL (4.3-11.1)
[2021-04-06 03:43] LABS: Prothrombin Time 11.6 Seconds (9.4-12.1)
[2021-04-06 03:54] LABS: BUN/Creatinine Ratio 30 (6-26); Blood Urea Nitrogen 33 mg/dL (6-20); Calcium 8.9 mg/dL (8.6-10.3); Carbon Dioxide 28 mEq/L (23-29); Chloride 97 mEq/L (98-107); Glucose 301 mg/dL (70-105); Magnesium 1.5 mg/dL (1.6-2.6); Osmolality,Calculated 297 (280-300); Potassium 4.2 mEq/L (3.5-5.1); Sodium 134 mEq/L (136-145); eGFR For African Americans > 60 (> 60); eGFR For Non-African Americans 51 (> 60)
[2021-04-06] MEDS: *HR* Heparin 5,000 UNIT/ML VIAL SQ SCH ×3 (05:12→20:32)
[2021-04-06] MEDS: Insulin LISPRO 300 UNITS/3 ML VIAL SUBQ SCH ×4 (06:51→20:33)
[2021-04-06] MEDS: Budesonide/Formoterol 160/4.5 1 PUFF INH IH SCH ×2 (07:13→20:13)
[2021-04-06] MEDS: Sucralfate 1 GM TABLET PO SCH ×2 (07:43→16:21)
[2021-04-06] MEDS: Furosemide 20 MG/2 ML VIAL IVP SCH (07:44)
[2021-04-06] MEDS: NIFEdipine XL (24 HR) 60 MG TAB.ER.24 PO SCH (07:44)
[2021-04-06] MEDS: Aspirin 81 MG TAB.CHEW PO SCH (07:44)
[2021-04-06] MEDS: lisinopriL 5 MG TABLET PO SCH (07:44)
[2021-04-06] MEDS ORDERED: Furosemide 20 MG/2 ML VIAL IVP ONE (08:45)
[2021-04-06] MEDS ORDERED: Furosemide 40 MG in 0.9 % Sodium Chloride 50 ML IV SCH (09:00)
[2021-04-06] MEDS: Isosorbide MONOnitrate (24 HR) 30 MG TAB.ER.24H PO SCH (10:45)
[2021-04-06] MEDS ORDERED: 0.9 % Sodium Chloride 500 ML IVC ONE (12:31)
[2021-04-06] MEDS ORDERED: *HR* FentaNYL (PF) 100 MCG/2 ML VIAL IVP PRN (12:31)
[2021-04-06] MEDS ORDERED: Lidocaine Viscous Oral Soln 15 ML SOLUTION MM PRN (12:31)
[2021-04-06] MEDS ORDERED: *HR* Midazolam HCl 5 MG/5 ML VIAL IVP PRN (12:31)
[2021-04-06] MEDS ORDERED: Furosemide 40 MG/4 ML VIAL IVP SCH ×2 (17:00)
[2021-04-07 01:10] LABS: Basophils # 0.1 K/mcL (0.0-0.2); Basophils % 1.3 %; Eosinophils # 0.2 K/mcL (0.0-0.6); Eosinophils % 3.2 %; Hematocrit 42.6 % (35.3-44.9); Immature Granulocytes % 1.9 % (0-4); Lymphocytes % 13.9 %; Mean Corpuscular HGB Conc 32.9 g/dL (31.6-35.5); Mean Corpuscular Hemoglobin 32.3 pg (28.0-33.3); Mean Corpuscular Volume 98.4 fL (83.0-100.0); Mean Platelet Volume 11.1 fL (9.4-12.4); Monocytes # 0.9 K/mcL (0.0-1.3); Monocytes % 12.3 %; Platelet Count 269 K/mcL (140-400); Red Blood Count 4.33 M/mcL (3.82-4.97); Red Cell Distribution Width 13.7 % (11.5-14.5); Segmented Neutrophils % 67.4 %; White Blood Count 7.5 K/mcL (4.3-11.1)
[2021-04-07 01:33] LABS: Calcium 9.5 mg/dL (8.6-10.3); Phosphorous 2.8 mg/dL (2.7-4.5); Potassium 4.6 mEq/L (3.5-5.1)
[2021-04-07] MEDS: *HR* Heparin 5,000 UNIT/ML VIAL SQ SCH ×3 (04:56→20:39)
[2021-04-07] MEDS: Budesonide/Formoterol 160/4.5 1 PUFF INH IH SCH ×2 (07:22→20:51)
[2021-04-07] MEDS: Insulin LISPRO 300 UNITS/3 ML VIAL SUBQ SCH ×4 (07:48→20:42)
[2021-04-07] MEDS: Sucralfate 1 GM TABLET PO SCH ×2 (07:49→16:59)
[2021-04-07] MEDS: Aspirin 81 MG TAB.CHEW PO SCH (07:49)
[2021-04-07] MEDS: Isosorbide MONOnitrate (24 HR) 30 MG TAB.ER.24H PO SCH (07:49)
[2021-04-07] MEDS ORDERED: valACYclovir 500 MG TABLET PO SCH (09:15)
[2021-04-07] MEDS: Ondansetron 4 MG/2 ML VIAL IVP PRN ×2 (09:17→20:40)
[2021-04-07] MEDS: valACYclovir 500 MG TABLET PO SCH ×3 (09:17→20:39)
[2021-04-07 11:49] LABS: Basophils # 0.1 K/mcL (0.0-0.2); Eosinophils # 0.2 K/mcL (0.0-0.6); Eosinophils % 3.1 %; Hematocrit 41.6 % (35.3-44.9); Hemoglobin 13.5 g/dL (11.5-15.4); Immature Granulocytes % 1.8 % (0-4); Lymphocytes % 14.5 %; Mean Corpuscular HGB Conc 32.5 g/dL (31.6-35.5); Mean Corpuscular Hemoglobin 31.9 pg (28.0-33.3); Mean Corpuscular Volume 98.3 fL (83.0-100.0); Monocytes % 14.9 %; Neutrophils # 4.3 K/mcL (1.6-8.9); Platelet Count 224 K/mcL (140-400); Red Blood Count 4.23 M/mcL (3.82-4.97); Red Cell Distribution Width 13.7 % (11.5-14.5); Segmented Neutrophils % 64.7 %; White Blood Count 6.7 K/mcL (4.3-11.1)
[2021-04-07 11:56] LABS: Prothrombin Time 11.4 Seconds (9.4-12.1)
[2021-04-07 12:10] LABS: BUN/Creatinine Ratio 32 (6-26); Blood Urea Nitrogen 33 mg/dL (6-20); Carbon Dioxide 26 mEq/L (23-29); Chloride 97 mEq/L (98-107); Chol/HDL Ratio 2.3 (0-4.9); Cholesterol 140 mg/dL (< 200); Glucose 237 mg/dL (70-105); HDL Cholesterol 60 mg/dL (40-59); LDL Cholesterol,Calculated 53 mg/dL (< 100); Osmolality,Calculated 291 (280-300); Potassium 4.4 mEq/L (3.5-5.1); Sodium 133 mEq/L (136-145); Triglycerides 133 mg/dL (< 150); eGFR For African Americans > 60 (> 60); eGFR For Non-African Americans 55 (> 60)
[2021-04-07 12:54] LABS: Estimated Average Glucose 209 mg/dl; Hemoglobin A1C 8.9 %
[2021-04-07] MEDS ORDERED: Chlorhexidine Rinse 15 ML MOUTHWASH MM SCH (21:00)
[2021-04-08] MEDS: Ondansetron 4 MG/2 ML VIAL IVP PRN ×2 (05:59→14:55)
[2021-04-08] MEDS: *HR* Heparin 5,000 UNIT/ML VIAL SQ SCH ×3 (05:59→20:08)
[2021-04-08] MEDS ORDERED: Aspirin 81 MG TAB.CHEW PO ONE (06:00)
[2021-04-08] MEDS: Budesonide/Formoterol 160/4.5 1 PUFF INH IH SCH ×2 (07:31→20:32)
[2021-04-08] MEDS: Isosorbide MONOnitrate (24 HR) 30 MG TAB.ER.24H PO SCH (07:39)
[2021-04-08] MEDS: Aspirin 81 MG TAB.CHEW PO SCH (07:39)
[2021-04-08] MEDS: valACYclovir 500 MG TABLET PO SCH ×3 (07:39→19:44)
[2021-04-08] MEDS: Sucralfate 1 GM TABLET PO SCH ×2 (07:40→16:01)
[2021-04-08] MEDS: Insulin LISPRO 300 UNITS/3 ML VIAL SUBQ SCH ×4 (07:40→19:32)
[2021-04-08] MEDS ORDERED: Chlorhexidine Rinse 15 ML MOUTHWASH MM SCH (09:00)
[2021-04-08 09:43] LABS: Basophils # 0.1 K/mcL (0.0-0.2); Basophils % 0.7 %; Eosinophils # 0.2 K/mcL (0.0-0.6); Hematocrit 43.7 % (35.3-44.9); Hemoglobin 14.2 g/dL (11.5-15.4); Immature Granulocytes % 1.2 % (0-4); Lymphocytes # 0.8 K/mcL (0.6-4.6); Mean Corpuscular HGB Conc 32.5 g/dL (31.6-35.5); Mean Corpuscular Volume 98.4 fL (83.0-100.0); Mean Platelet Volume 11.5 fL (9.4-12.4); Monocytes # 0.9 K/mcL (0.0-1.3); Monocytes % 11.2 %; Neutrophils # 5.7 K/mcL (1.6-8.9); Platelet Count 223 K/mcL (140-400); Red Blood Count 4.44 M/mcL (3.82-4.97); Red Cell Distribution Width 13.5 % (11.5-14.5); Segmented Neutrophils % 73.9 %; White Blood Count 7.7 K/mcL (4.3-11.1)
[2021-04-08 09:51] LABS: Prothrombin Time 11.4 Seconds (9.4-12.1)
[2021-04-08 09:54] LABS: Activated Partial Thrombo Time 35.8 Seconds (26.0-36.0)
[2021-04-08 09:58] LABS: BUN/Creatinine Ratio 36 (6-26); Blood Urea Nitrogen 34 mg/dL (6-20); Calcium 9.5 mg/dL (8.6-10.3); Carbon Dioxide 28 mEq/L (23-29); Chloride 97 mEq/L (98-107); Chol/HDL Ratio 2.1 (0-4.9); Cholesterol 159 mg/dL (< 200); Glucose 282 mg/dL (70-105); HDL Cholesterol 76 mg/dL (40-59); LDL Cholesterol,Calculated 62 mg/dL (< 100); Osmolality,Calculated 294 (280-300); Potassium 4.4 mEq/L (3.5-5.1); Sodium 133 mEq/L (136-145); Triglycerides 106 mg/dL (< 150); eGFR For African Americans > 60 (> 60); eGFR For Non-African Americans > 60 (> 60)
[2021-04-08 11:41] LABS: Estimated Average Glucose 212 mg/dl
[2021-04-08] MEDS: Chlorhexidine Rinse 15 ML MOUTHWASH MM SCH (19:31)
[2021-04-09] MEDS: Acetaminophen 325 MG TABLET PO PRN (00:47)
[2021-04-09 01:04] LABS: Basophils # 0.1 K/mcL (0.0-0.2); Basophils % 0.9 %; Eosinophils # 0.2 K/mcL (0.0-0.6); Eosinophils % 2.5 %; Hematocrit 44.3 % (35.3-44.9); Hemoglobin 14.2 g/dL (11.5-15.4); Immature Granulocytes % 1.1 % (0-4); Lymphocytes # 1.3 K/mcL (0.6-4.6); Lymphocytes % 15.6 %; Mean Corpuscular HGB Conc 32.1 g/dL (31.6-35.5); Mean Corpuscular Hemoglobin 31.3 pg (28.0-33.3); Mean Corpuscular Volume 97.6 fL (83.0-100.0); Mean Platelet Volume 11.2 fL (9.4-12.4); Monocytes % 11.8 %; Neutrophils # 5.8 K/mcL (1.6-8.9); Platelet Count 213 K/mcL (140-400); Red Blood Count 4.54 M/mcL (3.82-4.97); Red Cell Distribution Width 13.5 % (11.5-14.5); Segmented Neutrophils % 68.1 %; White Blood Count 8.5 K/mcL (4.3-11.1)
[2021-04-09 01:12] LABS: Prothrombin Time 11.1 Seconds (9.4-12.1)
[2021-04-09 01:28] LABS: BUN/Creatinine Ratio 32 (6-26); Blood Urea Nitrogen 29 mg/dL (6-20); Calcium 9.6 mg/dL (8.6-10.3); Carbon Dioxide 28 mEq/L (23-29); Chloride 98 mEq/L (98-107); Glucose 192 mg/dL (70-105); Magnesium 1.9 mg/dL (1.6-2.6); Osmolality,Calculated 291 (280-300); Potassium 4.3 mEq/L (3.5-5.1); Sodium 135 mEq/L (136-145); eGFR For African Americans > 60 (> 60); eGFR For Non-African Americans > 60 (> 60)
[2021-04-09] MEDS: *HR* Heparin 5,000 UNIT/ML VIAL SQ SCH ×3 (05:05→20:10)
[2021-04-09] MEDS ORDERED: Aspirin 81 MG TAB.CHEW PO ONE ×2 (06:00)
[2021-04-09] MEDS ORDERED: Vancomycin 1,750 MG/517.5 ML IV.SOLN IVPB ONE (06:00)
[2021-04-09] MEDS: Isosorbide MONOnitrate (24 HR) 30 MG TAB.ER.24H PO SCH (06:45)
[2021-04-09] MEDS: Aspirin 81 MG TAB.CHEW PO SCH (06:50)
[2021-04-09] MEDS: Chlorhexidine Rinse 15 ML MOUTHWASH MM SCH (07:11)
[2021-04-09] MEDS: Budesonide/Formoterol 160/4.5 1 PUFF INH IH SCH ×2 (07:43→20:22)
[2021-04-09] MEDS: Sucralfate 1 GM TABLET PO SCH ×2 (08:39→14:24)
[2021-04-09] MEDS: valACYclovir 500 MG TABLET PO SCH ×3 (08:39→20:10)
[2021-04-09] MEDS: Insulin LISPRO 300 UNITS/3 ML VIAL SUBQ SCH ×4 (08:40→20:11)
[2021-04-09] MEDS ORDERED: Isosorbide MONOnitrate (24 HR) 30 MG TAB.ER.24H PO ONE (08:45)
[2021-04-09] MEDS ORDERED: Furosemide 20 MG/2 ML VIAL IVP ONE (10:42)
[2021-04-09] MEDS: lisinopriL 10 MG TABLET PO SCH (11:07)
[2021-04-09] MEDS: Ondansetron 4 MG/2 ML VIAL IVP PRN (11:07)
[2021-04-09 12:26] LABS: Adenovirus Not Detected (Not Detect); Bordetella Pertussis Not Detected (Not Detect); Chlamydophila pneumoniae Not Detected (Not Detect); Coronavirus 229E Not Detected (Not Detect); Coronavirus HKU1 Not Detected (Not Detect); Coronavirus NL63 Not Detected (Not Detect); Coronavirus OC43 Not Detected (Not Detect); Human Metapneumovirus Not Detected (Not Detect); Human Rhinovirus/Enterovirus Not Detected (Not Detect); Influenza A Subtype 2009 H1 Not Detected (Not Detect); Influenza B Not Detected (Not Detect); Mycoplasma pneumoniae Not Detected (Not Detect); Parainfluenza Virus 1 Not Detected (Not Detect); Parainfluenza Virus 2 Not Detected (Not Detect); Parainfluenza Virus 3 Not Detected (Not Detect); Parainfluenza Virus 4 Not Detected (Not Detect); Respiratory Syncytial Virus Not Detected (Not Detect); SARS-CoV-2 Not Detected (Not Detect)
[2021-04-09 13:18] LABS: Amorphous Sediment,Urine Few per hpf (None-Few); Bacteria,Urine Few per hpf (None-Few); Bilirubin,Urine Negative (Negative); Blood,Urine Negative (Negative); Clarity,Urine Turbid (Clear); Color,Urine Yellow (Yellow); Glucose,Urine (UA) 70 mg/dL (Normal); Ketones,Urine Negative (Negative); Leukocyte Esterase,Urine Negative (Negative); Mucus,Urine Few per lpf (None-Few); Nitrite,Urine Negative (Negative); Protein,Urine 200 mg/dL (Neg-Trace); RBC,Urine 0-3 per hpf (0-3); Specific Gravity,Urine 1.014 (1.010-1.025); Squamous Epithelial Cell,Urine Few per hpf (None-Few); Urobilinogen,Urine Normal (Normal)
[2021-04-09] MEDS: Insulin DETEMIR 100 UNIT/ML X5UNITS SUBQ SCH (14:25)
[2021-04-09] MEDS: carvediloL 6.25 MG TABLET PO SCH (16:16)
[2021-04-10 02:14] LABS: Basophils # 0.1 K/mcL (0.0-0.2); Eosinophils # 0.2 K/mcL (0.0-0.6); Eosinophils % 2.8 %; Hematocrit 41.8 % (35.3-44.9); Hemoglobin 13.6 g/dL (11.5-15.4); Immature Granulocytes % 1.3 % (0-4); Lymphocytes # 1.8 K/mcL (0.6-4.6); Lymphocytes % 23.1 %; Mean Corpuscular HGB Conc 32.5 g/dL (31.6-35.5); Mean Corpuscular Hemoglobin 32.5 pg (28.0-33.3); Mean Corpuscular Volume 99.8 fL (83.0-100.0); Mean Platelet Volume 10.9 fL (9.4-12.4); Monocytes # 0.9 K/mcL (0.0-1.3); Monocytes % 11.1 %; Neutrophils # 4.8 K/mcL (1.6-8.9); Platelet Count 221 K/mcL (140-400); Red Blood Count 4.19 M/mcL (3.82-4.97); Red Cell Distribution Width 13.5 % (11.5-14.5); Segmented Neutrophils % 60.7 %; White Blood Count 7.8 K/mcL (4.3-11.1)
[2021-04-10 02:32] LABS: BUN/Creatinine Ratio 35 (6-26); Blood Urea Nitrogen 34 mg/dL (6-20); Carbon Dioxide 26 mEq/L (23-29); Chloride 99 mEq/L (98-107); Glucose 253 mg/dL (70-105); Magnesium 1.9 mg/dL (1.6-2.6); Osmolality,Calculated 294 (280-300); Potassium 4.3 mEq/L (3.5-5.1); Sodium 134 mEq/L (136-145); eGFR For African Americans > 60 (> 60); eGFR For Non-African Americans 58 (> 60)
[2021-04-10] MEDS: *HR* Heparin 5,000 UNIT/ML VIAL SQ SCH ×3 (05:52→21:33)
[2021-04-10] MEDS: Budesonide/Formoterol 160/4.5 1 PUFF INH IH SCH ×2 (07:13→20:40)
[2021-04-10] MEDS: Ondansetron 4 MG/2 ML VIAL IVP PRN ×2 (07:42→22:06)
[2021-04-10] MEDS: Insulin DETEMIR 100 UNIT/ML X5UNITS SUBQ SCH (07:43)
[2021-04-10] MEDS: Insulin LISPRO 300 UNITS/3 ML VIAL SUBQ SCH ×4 (07:43→21:33)
[2021-04-10] MEDS: Isosorbide MONOnitrate (24 HR) 60 MG TAB.ER.24H PO SCH (07:44)
[2021-04-10] MEDS: Aspirin 81 MG TAB.CHEW PO SCH (07:44)
[2021-04-10] MEDS: lisinopriL 10 MG TABLET PO SCH (07:44)
[2021-04-10] MEDS: valACYclovir 500 MG TABLET PO SCH ×3 (07:44→21:32)
[2021-04-10] MEDS: Sucralfate 1 GM TABLET PO SCH ×2 (07:45→15:15)
[2021-04-10] MEDS: carvediloL 6.25 MG TABLET PO SCH ×2 (07:45→15:15)
[2021-04-10] MEDS ORDERED: Sennosides 8.6 MG TABLET PO ONE (07:50)
[2021-04-10] MEDS ORDERED: Isosorbide MONOnitrate (24 HR) 60 MG TAB.ER.24H PO SCH (09:00)
[2021-04-11] MEDS: *HR* Heparin 5,000 UNIT/ML VIAL SQ SCH ×3 (06:05→20:35)
[2021-04-11] MEDS: Aspirin 81 MG TAB.CHEW PO SCH (07:41)
[2021-04-11] MEDS: lisinopriL 10 MG TABLET PO SCH (07:42)
[2021-04-11] MEDS: valACYclovir 500 MG TABLET PO SCH ×3 (07:42→19:37)
[2021-04-11] MEDS: Insulin LISPRO 300 UNITS/3 ML VIAL SUBQ SCH ×4 (07:42→19:37)
[2021-04-11] MEDS: Isosorbide MONOnitrate (24 HR) 60 MG TAB.ER.24H PO SCH (07:42)
[2021-04-11] MEDS: Sucralfate 1 GM TABLET PO SCH ×2 (07:42→16:23)
[2021-04-11] MEDS: Insulin DETEMIR 100 UNIT/ML X5UNITS SUBQ SCH (07:42)
[2021-04-11] MEDS: carvediloL 6.25 MG TABLET PO SCH ×2 (07:42→16:24)
[2021-04-11] MEDS: Ondansetron 4 MG/2 ML VIAL IVP PRN ×2 (08:04→18:16)
[2021-04-11] MEDS: Morphine Sulfate 2 MG/ML SYRINGE IVP PRN ×2 (08:04→18:16)
[2021-04-11] MEDS: Budesonide/Formoterol 160/4.5 1 PUFF INH IH SCH ×2 (08:13→20:00)
[2021-04-11] MEDS ORDERED: Insulin DETEMIR 100 UNIT/ML X5UNITS SUBQ ONE (10:58)
[2021-04-11] MEDS ORDERED: Milk and Molasses Enema 200 ML RC ONE (13:00)
[2021-04-12] MEDS: Ondansetron 4 MG/2 ML VIAL IVP PRN ×3 (01:23→20:30)
[2021-04-12] MEDS: Morphine Sulfate 2 MG/ML SYRINGE IVP PRN (01:23)
[2021-04-12 04:25] LABS: Basophils # 0.1 K/mcL (0.0-0.2); Basophils % 0.6 %; Eosinophils # 0.3 K/mcL (0.0-0.6); Eosinophils % 2.5 %; Hematocrit 40.3 % (35.3-44.9); Hemoglobin 12.9 g/dL (11.5-15.4); Lymphocytes # 1.5 K/mcL (0.6-4.6); Lymphocytes % 14.4 %; Mean Corpuscular Hemoglobin 31.7 pg (28.0-33.3); Mean Platelet Volume 10.8 fL (9.4-12.4); Monocytes # 0.9 K/mcL (0.0-1.3); Monocytes % 9.4 %; Neutrophils # 7.2 K/mcL (1.6-8.9); Platelet Count 239 K/mcL (140-400); Red Blood Count 4.07 M/mcL (3.82-4.97); Red Cell Distribution Width 13.4 % (11.5-14.5); Segmented Neutrophils % 72.1 %
[2021-04-12 04:39] LABS: BUN/Creatinine Ratio 29 (6-26); Blood Urea Nitrogen 26 mg/dL (6-20); Calcium 9.2 mg/dL (8.6-10.3); Carbon Dioxide 30 mEq/L (23-29); Chloride 100 mEq/L (98-107); Glucose 245 mg/dL (70-105); Osmolality,Calculated 295 (280-300); Potassium 4.3 mEq/L (3.5-5.1); Sodium 136 mEq/L (136-145); eGFR For African Americans > 60 (> 60); eGFR For Non-African Americans > 60 (> 60)
[2021-04-12] MEDS: *HR* Heparin 5,000 UNIT/ML VIAL SQ SCH ×3 (05:58→20:25)
[2021-04-12] MEDS: Prochlorperazine 10 MG/2 ML VIAL IM PRN (06:26)
[2021-04-12] MEDS: Insulin LISPRO 300 UNITS/3 ML VIAL SUBQ SCH ×4 (07:32→20:49)
[2021-04-12] MEDS: Sucralfate 1 GM TABLET PO SCH ×2 (07:33→15:31)
[2021-04-12] MEDS: carvediloL 6.25 MG TABLET PO SCH ×2 (07:33→16:21)
[2021-04-12] MEDS: valACYclovir 500 MG TABLET PO SCH ×3 (08:11→20:26)
[2021-04-12] MEDS: lisinopriL 10 MG TABLET PO SCH (08:11)
[2021-04-12] MEDS: Isosorbide MONOnitrate (24 HR) 60 MG TAB.ER.24H PO SCH (08:12)
[2021-04-12] MEDS: Aspirin 81 MG TAB.CHEW PO SCH (08:12)
[2021-04-12] MEDS: Budesonide/Formoterol 160/4.5 1 PUFF INH IH SCH ×2 (08:18→20:04)
[2021-04-12] MEDS: Insulin DETEMIR 100 UNIT/ML X5UNITS SUBQ SCH (08:28)
[2021-04-12 13:38] LABS: Basophils # 0.1 K/mcL (0.0-0.2); Basophils % 0.5 %; Eosinophils # 0.2 K/mcL (0.0-0.6); Eosinophils % 1.6 %; Hemoglobin 12.9 g/dL (11.5-15.4); Immature Granulocytes % 1.1 % (0-4); Lymphocytes # 1.2 K/mcL (0.6-4.6); Lymphocytes % 11.5 %; Mean Corpuscular HGB Conc 32.3 g/dL (31.6-35.5); Mean Corpuscular Hemoglobin 32.2 pg (28.0-33.3); Mean Corpuscular Volume 99.8 fL (83.0-100.0); Mean Platelet Volume 10.8 fL (9.4-12.4); Monocytes # 0.8 K/mcL (0.0-1.3); Monocytes % 7.9 %; Neutrophils # 8.2 K/mcL (1.6-8.9); Platelet Count 241 K/mcL (140-400); Red Blood Count 4.01 M/mcL (3.82-4.97); Red Cell Distribution Width 13.3 % (11.5-14.5); Segmented Neutrophils % 77.4 %; White Blood Count 10.6 K/mcL (4.3-11.1)
[2021-04-12 13:45] LABS: INR 1.1; Prothrombin Time 11.9 Seconds (9.4-12.1)
[2021-04-12 13:47] LABS: Activated Partial Thrombo Time 29.5 Seconds (26.0-36.0)
[2021-04-12 13:57] LABS: BUN/Creatinine Ratio 26 (6-26); Blood Urea Nitrogen 23 mg/dL (6-20); Calcium 9.1 mg/dL (8.6-10.3); Carbon Dioxide 31 mEq/L (23-29); Chloride 99 mEq/L (98-107); Chol/HDL Ratio 2.2 (0-4.9); Cholesterol 127 mg/dL (< 200); Glucose 214 mg/dL (70-105); HDL Cholesterol 58 mg/dL (40-59); LDL Cholesterol,Calculated 43 mg/dL (< 100); Osmolality,Calculated 288 (280-300); Potassium 4.3 mEq/L (3.5-5.1); Sodium 134 mEq/L (136-145); Triglycerides 131 mg/dL (< 150); eGFR For African Americans > 60 (> 60); eGFR For Non-African Americans > 60 (> 60)
[2021-04-12 15:02] LABS: Estimated Average Glucose 212 mg/dl
[2021-04-12] MEDS: Chlorhexidine Rinse 15 ML MOUTHWASH MM SCH (20:25)
[2021-04-13] MEDS: Ondansetron 4 MG/2 ML VIAL IVP PRN ×3 (04:44→20:25)
[2021-04-13 04:45] LABS: Basophils % 0.4 %; Eosinophils # 0.2 K/mcL (0.0-0.6); Eosinophils % 1.8 %; Hematocrit 37.3 % (35.3-44.9); Immature Granulocytes % 1.3 % (0-4); Lymphocytes # 1.6 K/mcL (0.6-4.6); Lymphocytes % 15.1 %; Mean Corpuscular HGB Conc 32.2 g/dL (31.6-35.5); Mean Corpuscular Volume 99.5 fL (83.0-100.0); Mean Platelet Volume 10.7 fL (9.4-12.4); Monocytes % 9.4 %; Neutrophils # 7.5 K/mcL (1.6-8.9); Platelet Count 243 K/mcL (140-400); Red Blood Count 3.75 M/mcL (3.82-4.97); Red Cell Distribution Width 13.5 % (11.5-14.5); White Blood Count 10.4 K/mcL (4.3-11.1)
[2021-04-13] MEDS: *HR* Heparin 5,000 UNIT/ML VIAL SQ SCH ×3 (04:45→19:41)
[2021-04-13 05:03] LABS: BUN/Creatinine Ratio 26 (6-26); Blood Urea Nitrogen 27 mg/dL (6-20); Calcium 9.1 mg/dL (8.6-10.3); Carbon Dioxide 31 mEq/L (23-29); Chloride 99 mEq/L (98-107); Glucose 255 mg/dL (70-105); Osmolality,Calculated 294 (280-300); Potassium 4.4 mEq/L (3.5-5.1); Sodium 135 mEq/L (136-145); eGFR For African Americans > 60 (> 60); eGFR For Non-African Americans 55 (> 60)
[2021-04-13] MEDS: Aspirin 81 MG TAB.CHEW PO ONE ×2 (05:53→06:26)
[2021-04-13] MEDS ORDERED: Vancomycin 1,500 MG/265 ML IV.SOLN IVPB ONE (06:00)
[2021-04-13] MEDS ORDERED: NiCARdipine 2.5 MG/10 ML Syringe IVPB ONE (06:11)
[2021-04-13] MEDS ORDERED: *HR* Midazolam HCl 5 MG/5 ML VIAL IVP ONE (06:18)
[2021-04-13] MEDS ORDERED: *HR* FentaNYL (PF) 1,000 MCG/20 ML VIAL ONE (06:18)
[2021-04-13] MEDS ORDERED: *HR* Rocuronium Bromide 50 MG/5 ML VIAL ONE ×2 (06:19→11:42)
[2021-04-13] MEDS ORDERED: EPINEPHrine 1 MG/ML VIAL ONE (06:22)
[2021-04-13] MEDS ORDERED: *HR* Etomidate 20 MG/10 ML AMPUL IVP ONE (06:22)
[2021-04-13] MEDS ORDERED: Tranexamic Acid 1,000 MG/10 ML VIAL ONE (06:22)
[2021-04-13] MEDS ORDERED: Protamine Sulfate 250 MG/25 ML VIAL IVP ONE (06:22)
[2021-04-13] MEDS ORDERED: Albumin Human 5% 12.5 GM/250 ML IV.SOLN ONE (06:22)
[2021-04-13] MEDS ORDERED: D5% in Water 250 ML ONE (06:22)
[2021-04-13] MEDS ORDERED: *HR* DOBUTamine HCl 250 MG/20 ML VIAL ONE (06:23)
[2021-04-13] MEDS ORDERED: niCARdipine 40 MG/200 ML MLS IVC ONE (06:23)
[2021-04-13] MEDS ORDERED: Vancomycin 1,000 MG VIAL ONE (06:50)
[2021-04-13] MEDS ORDERED: Papaverine 60 MG/2 ML VIAL IVP ONE (06:50)
[2021-04-13] MEDS: Chlorhexidine Rinse 15 ML MOUTHWASH MM SCH (07:18)
[2021-04-13] MEDS: Budesonide/Formoterol 160/4.5 1 PUFF INH IH SCH ×2 (07:49→19:48)
[2021-04-13] MEDS ORDERED: Norepinephrine 4 MG in 0.9 % Sodium Chloride 250 ML IVC PRN (08:15)
[2021-04-13] MEDS ORDERED: Buckersberg's Blood Cardioplegia PF SCH (08:15)
[2021-04-13] MEDS ORDERED: del Nido Cardioplegia Solution PF ONE (08:15)
[2021-04-13] MEDS ORDERED: del Nido Cardioplegia Solution PF SCH (08:15)
[2021-04-13] MEDS ORDERED: Heparin 15,000 UNIT in 0.9 % Sodium Chloride 500 ML IV ONE (08:15)
[2021-04-13] MEDS: Insulin LISPRO 300 UNITS/3 ML VIAL SUBQ SCH ×4 (08:52→19:39)
[2021-04-13] MEDS: Sucralfate 1 GM TABLET PO SCH ×2 (08:52→16:19)
[2021-04-13] MEDS ORDERED: ceFAZolin 2,000 MG in Water for inj. (sterile) 20 ML IVP ONE (09:39)
[2021-04-13 10:02] LABS: ABG Base Excess 3 mEq/L (-2 to 3); ABG Chloride 100 mEq/L (98-107); ABG Glucose 185 mg/dL (60-95); ABG HCO3 31 mEq/L (21-27); ABG Ionized Calcium 1.23 mmol/L (1.15-1.35); ABG Oxygen Saturation 100 % (95-98); ABG PCO2 62 mmHg (35-45); ABG PH 7.31 pH Units (7.32-7.45); ABG PO2 265 mmHg (85-104); ABG TCO2 33 mEq/L (20-26)
[2021-04-13] MEDS ORDERED: *HR* Heparin 10,000 UNIT/10 ML VIAL IR ONE (10:25)
[2021-04-13] MEDS ORDERED: *HR* Magnesium Sulfate 2 GM/50 ML PIGGYBACK IVPB ONE (10:25)
[2021-04-13] MEDS ORDERED: Tranexamic Acid 1,000 MG/10 ML VIAL IR ONE (10:25)
[2021-04-13] MEDS ORDERED: Heparin 1,000 UNITS/500 mL IV.SOLN IR ONE (10:25)
[2021-04-13] MEDS ORDERED: Mannitol 25% vial 12.5 GM/50 ML VIAL IVPB ONE (10:25)
[2021-04-13] MEDS ORDERED: Albumin Human 25% 25 GM/100 ML IV.SOLN IVPB ONE (10:25)
[2021-04-13] MEDS ORDERED: Lidocaine 2% Syringe 100 MG/5 ML IVP ONE (10:25)
[2021-04-13] MEDS ORDERED: *HR* Phenylephrine 10 MG/ML VIAL IVC ONE (10:25)
[2021-04-13 10:42] LABS: ABG Base Excess 3 mEq/L (-2 to 3); ABG Chloride 99 mEq/L (98-107); ABG Glucose 180 mg/dL (60-95); ABG HCO3 27 mEq/L (21-27); ABG Ionized Calcium 1.22 mmol/L (1.15-1.35); ABG Oxygen Saturation 99 % (95-98); ABG PCO2 38 mmHg (35-45); ABG PH 7.46 pH Units (7.32-7.45); ABG PO2 134 mmHg (85-104); ABG TCO2 29 mEq/L (20-26)
[2021-04-13 11:24] LABS: ABG Base Excess 3 mEq/L (-2 to 3); ABG Chloride 97 mEq/L (98-107); ABG Glucose 140 mg/dL (60-95); ABG HCO3 26 mEq/L (21-27); ABG Ionized Calcium 1.07 mmol/L (1.15-1.35); ABG Oxygen Saturation 100 % (95-98); ABG PCO2 35 mmHg (35-45); ABG PH 7.48 pH Units (7.32-7.45); ABG PO2 585 mmHg (85-104); ABG TCO2 27 mEq/L (20-26)
[2021-04-13 11:27] LABS: ABG Base Excess 5 mEq/L (-2 to 3); ABG Chloride 99 mEq/L (98-107); ABG Glucose 144 mg/dL (60-95); ABG HCO3 28 mEq/L (21-27); ABG Ionized Calcium 1.16 mmol/L (1.15-1.35); ABG Oxygen Saturation 100 % (95-98); ABG PCO2 37 mmHg (35-45); ABG PH 7.49 pH Units (7.32-7.45); ABG PO2 547 mmHg (85-104); ABG TCO2 30 mEq/L (20-26)
[2021-04-13 11:52] LABS: ABG Base Excess 3 mEq/L (-2 to 3); ABG Chloride 101 mEq/L (98-107); ABG Glucose 151 mg/dL (60-95); ABG HCO3 27 mEq/L (21-27); ABG Ionized Calcium 1.16 mmol/L (1.15-1.35); ABG Oxygen Saturation 100 % (95-98); ABG PCO2 35 mmHg (35-45); ABG PH 7.49 pH Units (7.32-7.45); ABG PO2 573 mmHg (85-104); ABG TCO2 28 mEq/L (20-26)
[2021-04-13 12:26] LABS: ABG Base Excess 2 mEq/L (-2 to 3); ABG Chloride 103 mEq/L (98-107); ABG Glucose 166 mg/dL (60-95); ABG HCO3 26 mEq/L (21-27); ABG Ionized Calcium 1.15 mmol/L (1.15-1.35); ABG Oxygen Saturation 100 % (95-98); ABG PCO2 41 mmHg (35-45); ABG PH 7.42 pH Units (7.32-7.45); ABG PO2 529 mmHg (85-104); ABG TCO2 28 mEq/L (20-26)
[2021-04-13 12:57] LABS: ABG Base Excess -1 mEq/L (-2 to 3); ABG Chloride 107 mEq/L (98-107); ABG Glucose 150 mg/dL (60-95); ABG HCO3 22 mEq/L (21-27); ABG Ionized Calcium 1.15 mmol/L (1.15-1.35); ABG Oxygen Saturation 100 % (95-98); ABG PCO2 27 mmHg (35-45); ABG PH 7.53 pH Units (7.32-7.45); ABG PO2 624 mmHg (85-104); ABG TCO2 23 mEq/L (20-26)
[2021-04-13] MEDS: CeFAZolin 2,000 MG/120 ML BAG IVPB ONE ×2 (13:00→15:26)
[2021-04-13 13:36] LABS: ABG Base Excess -2 mEq/L (-2 to 3); ABG Chloride 105 mEq/L (98-107); ABG Glucose 177 mg/dL (60-95); ABG HCO3 24 mEq/L (21-27); ABG Ionized Calcium 1.21 mmol/L (1.15-1.35); ABG Oxygen Saturation 95 % (95-98); ABG PCO2 45 mmHg (35-45); ABG PH 7.34 pH Units (7.32-7.45); ABG PO2 83 mmHg (85-104); ABG TCO2 26 mEq/L (20-26)
[2021-04-13] MEDS ORDERED: Potassium Chloride 40 MEQ/200 ML BAG IVPB PRN (13:44)
[2021-04-13] MEDS ORDERED: *HR* Dextrose 50 % in Water (Syg) 50 ML SYRINGE IVP PRN (13:44)
[2021-04-13] MEDS ORDERED: Calcium Gluconate 1gm/50mL 1 GM/50 ML BAG IVPB PRN (13:44)
[2021-04-13] MEDS ORDERED: *HR* OxyCODONE/APAP 5/325 TABLET PO PRN (13:44)
[2021-04-13] MEDS ORDERED: Insulin Regular, Human 100 UNIT/ML IV PRN (13:44)
[2021-04-13] MEDS ORDERED: Albumin Human 5% 50.0 GM/1,000 ML IV.SOLN ONE (13:49)
[2021-04-13] MEDS: niCARdipine 20 MG/200 ML MLS IVC SCH ×3 (14:00→19:40)
[2021-04-13] MEDS: Albumin Human 5% 12.5 GM/250 ML IV.SOLN IVPB PRN ×4 (14:05→15:58)
[2021-04-13 14:20] LABS: ABG Base Excess 0 mEq/L (-2 to 3); ABG HCO3 24 mEq/L (21-27); ABG Oxygen Saturation 99 % (95-98); ABG PCO2 36 mmHg (35-45); ABG PH 7.43 pH Units (7.32-7.45); ABG PO2 153 mmHg (85-104); ABG TCO2 25 mEq/L (20-26); Blood Gas Modality AF; Blood Gas VT 600 cc
[2021-04-13 14:31] LABS: Monocytes % 4.4 %
[2021-04-13 14:50] LABS: INR 1.2; Prothrombin Time 13.6 Seconds (9.4-12.1)
[2021-04-13 14:52] LABS: BUN/Creatinine Ratio 26 (6-26); Blood Urea Nitrogen 23 mg/dL (6-20); Carbon Dioxide 25 mEq/L (23-29); Chloride 107 mEq/L (98-107); Glucose 174 mg/dL (70-105); Osmolality,Calculated 290 (280-300); Potassium 4.6 mEq/L (3.5-5.1); Sodium 136 mEq/L (136-145); eGFR For African Americans > 60 (> 60); eGFR For Non-African Americans > 60 (> 60)
[2021-04-13 14:53] LABS: Activated Partial Thrombo Time 32.4 Seconds (26.0-36.0); Basophils # 0.1 K/mcL (0.0-0.2); Basophils % 0.6 %; Eosinophils # 0.1 K/mcL (0.0-0.6); Eosinophils % 0.8 %; Hematocrit 31.3 % (35.3-44.9); Hemoglobin 10.9 g/dL (11.5-15.4); Immature Granulocytes % 3.9 % (0-4); Lymphocytes # 1.5 K/mcL (0.6-4.6); Lymphocytes % 9.4 %; Mean Corpuscular HGB Conc 34.8 g/dL (31.6-35.5); Mean Corpuscular Hemoglobin 34.7 pg (28.0-33.3); Mean Corpuscular Volume 99.7 fL (83.0-100.0); Mean Platelet Volume 11.3 fL (9.4-12.4); Monocytes # 0.7 K/mcL (0.0-1.3); Neutrophils # 12.6 K/mcL (1.6-8.9); Platelet Count 184 K/mcL (140-400); Red Blood Count 3.14 M/mcL (3.82-4.97); Red Cell Distribution Width 13.5 % (11.5-14.5); Segmented Neutrophils % 80.9 %; White Blood Count 15.6 K/mcL (4.3-11.1)
[2021-04-13] MEDS: carvediloL 6.25 MG TABLET PO SCH ×2 (15:20→16:19)
[2021-04-13] MEDS: Aspirin 81 MG TAB.CHEW PO SCH (15:20)
[2021-04-13] MEDS: Insulin DETEMIR 100 UNIT/ML X5UNITS SUBQ SCH (15:21)
[2021-04-13] MEDS: lisinopriL 10 MG TABLET PO SCH (15:21)
[2021-04-13] MEDS: valACYclovir 500 MG TABLET PO SCH ×3 (15:21→20:25)
[2021-04-13] MEDS: Isosorbide MONOnitrate (24 HR) 60 MG TAB.ER.24H PO SCH (15:21)
[2021-04-13] MEDS: Norepinephrine 4 MG/254 ML IV.SOLN IVC SCH ×2 (15:26→15:40)
[2021-04-13] MEDS: Clindamycin 900 MG/50 ML 900 MG/50 ML IV.SOLN IVPB SCH ×2 (15:57→23:18)
[2021-04-13] MEDS ORDERED: Scopolamine Patch 1.5 MG PATCH.TD72 TD ONE (16:00)
[2021-04-13] MEDS: *HR* FentaNYL (PF) 100 MCG/2 ML VIAL IVP PRN ×2 (16:47→18:47)
[2021-04-13] MEDS: Prochlorperazine 10 MG/2 ML VIAL IM PRN ×2 (17:17→23:18)
[2021-04-13 18:41] LABS: ABG Base Excess -4 mEq/L (-2 to 3); ABG HCO3 25 mEq/L (21-27); ABG Oxygen Saturation 87 % (95-98); ABG PCO2 61 mmHg (35-45); ABG PH 7.21 pH Units (7.32-7.45); ABG PO2 65 mmHg (85-104); ABG TCO2 26 mEq/L (20-26); Blood Gas Modality CPAP/PS; Blood Gas Pressure Support 8 cm H2O
[2021-04-13] MEDS ORDERED: Dexmedetomidine HCl 400 MCG/100 ML MLS IVC SCH (19:00)
[2021-04-13] MEDS: Dexmedetomidine HCl 400 MCG/100 ML MLS IVC SCH (19:36)
[2021-04-13] MEDS: FentaNYL (PF) 1,000 MCG/100 ML IV.SOLN IVC SCH ×2 (19:36→23:17)
[2021-04-13] MEDS ORDERED: Chlorhexidine Rinse 15 ML MOUTHWASH MM SCH (21:00)
[2021-04-13 21:57] LABS: ABG Base Excess -1 mEq/L (-2 to 3); ABG HCO3 22 mEq/L (21-27); ABG Oxygen Saturation 98 % (95-98); ABG PCO2 27 mmHg (35-45); ABG PH 7.52 pH Units (7.32-7.45); ABG PO2 97 mmHg (85-104); ABG TCO2 22 mEq/L (20-26); Blood Gas VT 600 cc
[2021-04-14] MEDS: niCARdipine 20 MG/200 ML MLS IVC SCH ×2 (01:04→03:53)
[2021-04-14 03:18] LABS: Basophils # 0.1 K/mcL (0.0-0.2); Basophils % 0.8 %; Eosinophils # 0.1 K/mcL (0.0-0.6); Eosinophils % 0.5 %; Hematocrit 29.3 % (35.3-44.9); Hemoglobin 9.5 g/dL (11.5-15.4); Immature Granulocytes % 1.4 % (0-4); Lymphocytes # 1.4 K/mcL (0.6-4.6); Lymphocytes % 10.5 %; Mean Corpuscular HGB Conc 32.4 g/dL (31.6-35.5); Mean Corpuscular Hemoglobin 31.8 pg (28.0-33.3); Mean Platelet Volume 10.9 fL (9.4-12.4); Monocytes # 1.3 K/mcL (0.0-1.3); Monocytes % 10.2 %; Platelet Count 175 K/mcL (140-400); Red Blood Count 2.99 M/mcL (3.82-4.97); Segmented Neutrophils % 76.6 %; White Blood Count 13.1 K/mcL (4.3-11.1)
[2021-04-14] MEDS: Dexmedetomidine HCl 400 MCG/100 ML MLS IVC SCH ×3 (03:19→20:23)
[2021-04-14 03:25] LABS: INR 1.3; Prothrombin Time 14.1 Seconds (9.4-12.1)
[2021-04-14 03:28] LABS: Activated Partial Thrombo Time 27.8 Seconds (26.0-36.0)
[2021-04-14 04:04] LABS: ABG Base Excess -1 mEq/L (-2 to 3); ABG HCO3 21 mEq/L (21-27); ABG Oxygen Saturation 99 % (95-98); ABG PCO2 27 mmHg (35-45); ABG PO2 110 mmHg (85-104); ABG TCO2 22 mEq/L (20-26); Blood Gas VT 600 cc
[2021-04-14] MEDS: FentaNYL (PF) 1,000 MCG/100 ML IV.SOLN IVC SCH (04:32)
[2021-04-14] MEDS: Ondansetron 4 MG/2 ML VIAL IVP PRN (04:39)
[2021-04-14 04:49] LABS: BUN/Creatinine Ratio 24 (6-26); Blood Urea Nitrogen 26 mg/dL (6-20); Calcium 8.3 mg/dL (8.6-10.3); Carbon Dioxide 19 mEq/L (23-29); Chloride 110 mEq/L (98-107); Glucose 131 mg/dL (70-105); Magnesium 2.7 mg/dL (1.6-2.6); Osmolality,Calculated 295 (280-300); Potassium 4.5 mEq/L (3.5-5.1); Sodium 139 mEq/L (136-145); eGFR For African Americans > 60 (> 60); eGFR For Non-African Americans 52 (> 60)
[2021-04-14 05:15] LABS: ABG Base Excess -2 mEq/L (-2 to 3); ABG HCO3 21 mEq/L (21-27); ABG Oxygen Saturation 99 % (95-98); ABG PCO2 28 mmHg (35-45); ABG PH 7.49 pH Units (7.32-7.45); ABG PO2 103 mmHg (85-104); ABG TCO2 22 mEq/L (20-26); Blood Gas VT 600 cc
[2021-04-14] MEDS: *HR* Heparin 5,000 UNIT/ML VIAL SQ SCH ×3 (06:02→20:23)
[2021-04-14] MEDS ORDERED: Furosemide 40 MG in 0.9 % Sodium Chloride 50 ML IV SCH (08:00)
[2021-04-14] MEDS: carvediloL 6.25 MG TABLET PO SCH (08:00)
[2021-04-14] MEDS: Insulin LISPRO 300 UNITS/3 ML VIAL SUBQ SCH ×3 (08:00→16:33)
[2021-04-14] MEDS: Isosorbide MONOnitrate (24 HR) 60 MG TAB.ER.24H PO SCH (08:01)
[2021-04-14] MEDS: Insulin DETEMIR 100 UNIT/ML X5UNITS SUBQ SCH (08:02)
[2021-04-14] MEDS: Sucralfate 1 GM TABLET PO SCH (08:31)
[2021-04-14] MEDS: Aspirin 81 MG TAB.CHEW PO SCH ×2 (08:31→09:16)
[2021-04-14] MEDS ORDERED: *HR* FentaNYL (PF) 100 MCG/2 ML VIAL IVP PRN (08:53)
[2021-04-14] MEDS ORDERED: Naloxone 0.4 MG/ML INJ IVP PRN (08:53)
[2021-04-14] MEDS ORDERED: *HR* OxyCODONE/APAP 5/325 TABLET PO PRN (08:53)
[2021-04-14] MEDS ORDERED: DiphenhydraMINE CREAM 28.4 GM TUBE TP PRN (08:53)
[2021-04-14] MEDS ORDERED: Acetaminophen 325 MG TABLET PO PRN (08:53)
[2021-04-14] MEDS ORDERED: Prochlorperazine 10 MG/2 ML VIAL IM PRN (08:53)
[2021-04-14] MEDS ORDERED: Albumin Human 5% 12.5 GM/250 ML IV.SOLN IVPB PRN (08:53)
[2021-04-14] MEDS ORDERED: Furosemide 40 MG/4 ML VIAL IVP SCH (09:00)
[2021-04-14] MEDS ORDERED: Aspirin Enteric Coated 81 MG Tablet PO SCH (09:00)
[2021-04-14] MEDS ORDERED: Pantoprazole 40 MG VIAL IVP SCH ×2 (09:00)
[2021-04-14] MEDS ORDERED: Chlorhexidine Rinse 15 ML MOUTHWASH MM SCH (09:00)
[2021-04-14] MEDS ORDERED: Dextrose 4 GM Chewable Tablets PO PRN ×2 (09:03)
[2021-04-14] MEDS ORDERED: D5% in Water 1,000 ML IVC PRN (09:03)
[2021-04-14] MEDS ORDERED: *HR* Dextrose 50 % in Water (Syg) 50 ML SYRINGE IVP PRN (09:03)
[2021-04-14] MEDS: Furosemide 40 MG/4 ML VIAL IVP SCH ×2 (09:21→20:22)
[2021-04-14 10:00] LABS: ABG Base Excess -1 mEq/L (-2 to 3); ABG HCO3 24 mEq/L (21-27); ABG Oxygen Saturation 100 % (95-98); ABG PCO2 40 mmHg (35-45); ABG PO2 167 mmHg (85-104); ABG TCO2 26 mEq/L (20-26)
[2021-04-14] MEDS: Budesonide/Formoterol 160/4.5 1 PUFF INH IH SCH ×2 (12:06→22:29)
[2021-04-14 18:04] LABS: ABG Base Excess -2 mEq/L (-2 to 3); ABG HCO3 22 mEq/L (21-27); ABG Oxygen Saturation 96 % (95-98); ABG PCO2 34 mmHg (35-45); ABG PH 7.41 pH Units (7.32-7.45); ABG PO2 77 mmHg (85-104); ABG TCO2 23 mEq/L (20-26)
[2021-04-14] MEDS: Norepinephrine 4 MG/254 ML IV.SOLN IVC SCH (18:55)
[2021-04-14] MEDS ORDERED: Insulin LISPRO 300 UNITS/3 ML VIAL SUBQ SCH (21:00)
[2021-04-14] MEDS ORDERED: Acetaminophen IV 500 MG/50 ML BAG IVPB ONE (23:36)
[2021-04-15] MEDS: Dexmedetomidine HCl 400 MCG/100 ML MLS IVC SCH ×4 (00:07→12:44)
[2021-04-15 04:04] LABS: Basophils # 0.1 K/mcL (0.0-0.2); Basophils % 0.4 %; Hemoglobin 8.8 g/dL (11.5-15.4); Immature Granulocytes % 1.9 % (0-4); Lymphocytes # 1.5 K/mcL (0.6-4.6); Lymphocytes % 10.4 %; Mean Corpuscular HGB Conc 30.3 g/dL (31.6-35.5); Mean Corpuscular Hemoglobin 31.5 pg (28.0-33.3); Mean Corpuscular Volume 103.9 fL (83.0-100.0); Mean Platelet Volume 12.1 fL (9.4-12.4); Monocytes # 1.4 K/mcL (0.0-1.3); Monocytes % 9.7 %; Neutrophils # 10.8 K/mcL (1.6-8.9); Platelet Count 157 K/mcL (140-400); Red Blood Count 2.79 M/mcL (3.82-4.97); Red Cell Distribution Width 14.4 % (11.5-14.5); Segmented Neutrophils % 77.6 %
[2021-04-15 04:06] LABS: INR 1.6; Prothrombin Time 17.6 Seconds (9.4-12.1)
[2021-04-15 04:12] LABS: Calcium 8.5 mg/dL (8.6-10.3)
[2021-04-15 04:49] LABS: Magnesium 2.7 mg/dL (1.6-2.6)
[2021-04-15] MEDS: *HR* Heparin 5,000 UNIT/ML VIAL SQ SCH ×3 (04:51→22:09)
[2021-04-15] MEDS ORDERED: Acetaminophen IV 500 MG/50 ML BAG IVPB ONE (06:29)
[2021-04-15] MEDS: Furosemide 40 MG/4 ML VIAL IVP SCH (06:57)
[2021-04-15] MEDS: Budesonide/Formoterol 160/4.5 1 PUFF INH IH SCH ×2 (07:52→21:20)
[2021-04-15] MEDS: Aspirin 81 MG TAB.CHEW PO SCH (07:59)
[2021-04-15] MEDS: Norepinephrine 4 MG/254 ML IV.SOLN IVC SCH (07:59)
[2021-04-15] MEDS: Insulin LISPRO 300 UNITS/3 ML VIAL SUBQ SCH ×4 (08:00→20:07)
[2021-04-15 08:38] LABS: Bilirubin,Urine Small (Negative); Blood,Urine Moderate (Negative); Clarity,Urine Slightly Cloudy (Clear); Color,Urine Yellow (Yellow); Glucose,Urine (UA) 100 mg/dL (Normal); Ketones,Urine 15 mg/dL (Negative); Leukocyte Esterase,Urine Negative (Negative); Nitrite,Urine Negative (Negative); PH,Urine 5.5 pH Units (5.0-8.0); Protein,Urine >=300 mg/dL (Neg-Trace); Specific Gravity,Urine >= 1.030 (1.010-1.025); Urobilinogen,Urine Normal (Normal)
[2021-04-15 08:45] LABS: Bacteria,Urine Few per hpf (None-Few); Hyaline Casts,Urine Many per lpf (None Seen); Mucus,Urine Moderate per lpf (None-Few); Squamous Epithelial Cell,Urine Moderate per hpf (None-Few); WBC,Urine 15-30 per hpf (0-3)
[2021-04-15] MEDS ORDERED: lisinopriL 10 MG TABLET PO SCH (09:00)
[2021-04-15] MEDS ORDERED: 0.9 % Sodium Chloride 1,000 ML ONE (09:39)
[2021-04-15] MEDS: 0.9 % Sodium Chloride 1,000 ML IVC SCH ×2 (10:51→19:55)
[2021-04-15] MEDS: Ondansetron 4 MG/2 ML VIAL IVP PRN (10:57)
[2021-04-15] MEDS ORDERED: OLANZapine 10 MG VIAL IM ONE (11:00)
[2021-04-15] MEDS ORDERED: Albuterol 2.5 MG/3 ML NEBULIZER IH PRN (11:22)
[2021-04-15] MEDS ORDERED: Vancomycin 1,750 MG in 0.9 % Sodium Chloride 250 ML IVPB SCH (13:00)
[2021-04-15] MEDS ORDERED: Artificial Tears SOLN 15 ML BOTTLE BOTH EYES PRN (13:25)
[2021-04-15] MEDS: FentaNYL (PF) 1,000 MCG/100 ML IV.SOLN IVC SCH ×2 (13:30→19:53)
[2021-04-15] MEDS: Pantoprazole 40 MG VIAL IVP SCH (14:31)
[2021-04-15 14:48] LABS: ABG Base Excess -3 mEq/L (-2 to 3); ABG HCO3 20 mEq/L (21-27); ABG Oxygen Saturation 98 % (95-98); ABG PCO2 26 mmHg (35-45); ABG PH 7.48 pH Units (7.32-7.45); ABG PO2 98 mmHg (85-104); ABG TCO2 20 mEq/L (20-26); Blood Gas Modality AF; Blood Gas VT 450 cc
[2021-04-15] MEDS: Ipratropium/Albuterol Neb 3 ML IH SCH ×2 (15:01→21:20)
[2021-04-15] MEDS ORDERED: *HR* Etomidate 20 MG/10 ML AMPUL IVP ONE (16:02)
[2021-04-15] MEDS ORDERED: *HR* Midazolam HCl 2 MG/2 ML VIAL IVP ONE (16:02)
[2021-04-15] MEDS: Artificial Tears SOLN 15 ML BOTTLE BOTH EYES SCH ×2 (17:22→20:04)
[2021-04-15] MEDS: MetroNIDAZOLE 500 MG/100 ML 500 MG/100 ML BAG IVPB SCH (17:22)
[2021-04-15] MEDS: Cefepime HCl 2,000 MG in 0.9 % Sodium Chloride 10 ML IVP SCH (17:22)
[2021-04-15] MEDS ORDERED: Cefepime HCl 1,000 MG in 0.9 % Sodium Chloride 10 ML IVP SCH (18:00)
[2021-04-15] MEDS ORDERED: Cefepime HCl 2,000 MG in 0.9 % Sodium Chloride 10 ML IVP SCH (18:00)
[2021-04-15] MEDS ORDERED: Albumin Human 5% 12.5 GM/250 ML IV.SOLN IVC SCH (18:00)
[2021-04-15] MEDS ORDERED: Cefepime HCl 1,000 MG in 0.9 % Sodium Chloride 10 ML IVPB SCH (18:00)
[2021-04-15] MEDS ORDERED: Furosemide 240 MG in 0.9 % Sodium Chloride 96 ML IVC SCH (18:30)
[2021-04-15] MEDS: Albumin 25% 25gram/100mL 25 GM/100 ML IV.SOLN IVPB SCH (18:34)
[2021-04-15] MEDS: Chlorhexidine Rinse 15 ML MOUTHWASH MM SCH (20:04)
[2021-04-15] MEDS: Insulin DETEMIR 100 UNIT/ML X5UNITS SUBQ SCH (20:09)
[2021-04-15] MEDS ORDERED: QUEtiapine Fumarate 25 MG TABLET PO SCH (21:00)
[2021-04-16] MEDS: Norepinephrine 4 MG/254 ML IV.SOLN IVC SCH ×3 (00:37→14:01)
[2021-04-16] MEDS: Artificial Tears SOLN 15 ML BOTTLE BOTH EYES SCH ×7 (00:38→23:59)
[2021-04-16] MEDS: Insulin LISPRO 300 UNITS/3 ML VIAL SUBQ SCH ×6 (00:38→20:55)
[2021-04-16] MEDS: MetroNIDAZOLE 500 MG/100 ML 500 MG/100 ML BAG IVPB SCH ×4 (00:56→23:47)
[2021-04-16] MEDS: Albumin 25% 25gram/100mL 25 GM/100 ML IV.SOLN IVPB SCH ×3 (00:56→11:55)
[2021-04-16 03:27] LABS: Basophils # 0.1 K/mcL (0.0-0.2); Basophils % 0.3 %; Eosinophils % 0.3 %; Hemoglobin 7.7 g/dL (11.5-15.4); Immature Granulocytes % 1.9 % (0-4); Lymphocytes # 1.5 K/mcL (0.6-4.6); Lymphocytes % 10.2 %; Mean Corpuscular HGB Conc 30.8 g/dL (31.6-35.5); Mean Corpuscular Hemoglobin 31.7 pg (28.0-33.3); Mean Corpuscular Volume 102.9 fL (83.0-100.0); Mean Platelet Volume 11.1 fL (9.4-12.4); Monocytes # 1.2 K/mcL (0.0-1.3); Monocytes % 7.9 %; Neutrophils # 11.5 K/mcL (1.6-8.9); Nucleated Red Blood Cells 0.1 /100 WBC (0); Platelet Count 164 K/mcL (140-400); Red Blood Count 2.43 M/mcL (3.82-4.97); Red Cell Distribution Width 14.6 % (11.5-14.5); Segmented Neutrophils % 79.4 %; White Blood Count 14.5 K/mcL (4.3-11.1)
[2021-04-16] MEDS: Ipratropium/Albuterol Neb 3 ML IH SCH ×4 (03:32→21:49)
[2021-04-16 03:59] LABS: ABG Base Excess -5 mEq/L (-2 to 3); ABG HCO3 20 mEq/L (21-27); ABG Oxygen Saturation 98 % (95-98); ABG PCO2 31 mmHg (35-45); ABG PO2 99 mmHg (85-104); ABG TCO2 21 mEq/L (20-26); Blood Gas Modality AF; Blood Gas VT 450 cc
[2021-04-16 04:03] LABS: Albumin 3.4 g/dL (3.5-5.7); Albumin/Globulin Ratio 1.5 (1.1-2.2); Bilirubin,Total 0.6 mg/dL (0.3-1.0); Globulin 2.2 g/dL (2.4-3.5); Magnesium 2.4 mg/dL (1.6-2.6); Phosphorous 2.9 mg/dL (2.7-4.5); Potassium 3.6 mEq/L (3.5-5.1); Total Protein 5.6 g/dL (6.4-8.9)
[2021-04-16] MEDS ORDERED: Amiodarone Premix 360 MG/200 ML BAG IVC ONE (04:47)
[2021-04-16] MEDS ORDERED: Amiodarone Premix 150 MG/100 ML BAG IVPB ONE (04:52)
[2021-04-16] MEDS: FentaNYL (PF) 1,000 MCG/100 ML IV.SOLN IVC SCH ×3 (05:00→22:15)
[2021-04-16] MEDS: Cefepime HCl 2,000 MG in 0.9 % Sodium Chloride 10 ML IVP SCH ×2 (05:36→17:38)
[2021-04-16] MEDS: *HR* Heparin 5,000 UNIT/ML VIAL SQ SCH ×3 (05:37→21:11)
[2021-04-16] MEDS: 0.9 % Sodium Chloride 1,000 ML IVC SCH ×3 (05:42→20:38)
[2021-04-16] MEDS ORDERED: Calcium Gluconate 1gm/50mL 1 GM/50 ML BAG IVPB PRN (06:24)
[2021-04-16] MEDS ORDERED: 0.9 % Sodium Chloride 250 ML IVC ONE (06:30)
[2021-04-16] MEDS: Calcium Gluconate 1gm/50mL 1 GM/50 ML BAG IVPB PRN (06:36)
[2021-04-16] MEDS ORDERED: 0.9 % Sodium Chloride 500 ML IVC PRN (07:04)
[2021-04-16] MEDS: Pantoprazole 40 MG VIAL IVP SCH (07:42)
[2021-04-16] MEDS: Insulin DETEMIR 100 UNIT/ML X5UNITS SUBQ SCH ×2 (07:43→20:45)
[2021-04-16] MEDS: Chlorhexidine Rinse 15 ML MOUTHWASH MM SCH ×2 (07:43→20:42)
[2021-04-16] MEDS ORDERED: Potassium Chloride Elixir 20 MEQ/15 ML UDC GTUBE ONE ×2 (07:49→11:37)
[2021-04-16] MEDS: Budesonide/Formoterol 160/4.5 1 PUFF INH IH SCH ×2 (08:03→21:50)
[2021-04-16] MEDS: Vasopressin 40 UNIT in D5% in Water 100 ML IVC SCH ×2 (08:03→19:50)
[2021-04-16] MEDS ORDERED: Perflutren Lipid Microsphere 1.3 ML in 0.9 % Sodium Chloride 8.7 ML IVP PRN (08:28)
[2021-04-16] MEDS ORDERED: 0.9 % Sodium Chloride 500 ML IVC ONE (08:36)
[2021-04-16 09:09] LABS: ABG Base Excess -4 mEq/L (-2 to 3); ABG HCO3 21 mEq/L (21-27); ABG Oxygen Saturation 98 % (95-98); ABG PCO2 40 mmHg (35-45); ABG PH 7.33 pH Units (7.32-7.45); ABG PO2 108 mmHg (85-104); ABG TCO2 23 mEq/L (20-26); Blood Gas Modality ASSIST CONTROL; Blood Gas VT 450 cc
[2021-04-16] MEDS ORDERED: Amiodarone Premix 360 MG/200 ML BAG IVC SCH (10:47)
[2021-04-16] MEDS: Aspirin 81 MG TAB.CHEW PO SCH (11:20)
[2021-04-16 13:38] LABS: Hematocrit 30.3 % (35.3-44.9)
[2021-04-16 13:40] LABS: Hemoglobin 9.5 g/dL (11.5-15.4)
[2021-04-16] MEDS: Docusate Oral Soln 100 MG/10 ML UDC GTUBE SCH (20:56)
[2021-04-17] MEDS: Insulin LISPRO 300 UNITS/3 ML VIAL SUBQ SCH ×7 (00:20→23:46)
[2021-04-17] MEDS: Ipratropium/Albuterol Neb 3 ML IH SCH ×5 (03:38→20:32)
[2021-04-17 03:48] LABS: ABG Base Excess -6 mEq/L (-2 to 3); ABG HCO3 20 mEq/L (21-27); ABG Oxygen Saturation 97 % (95-98); ABG PCO2 37 mmHg (35-45); ABG PH 7.34 pH Units (7.32-7.45); ABG PO2 96 mmHg (85-104); ABG TCO2 21 mEq/L (20-26); Blood Gas Modality AF; Blood Gas VT 450 cc
[2021-04-17] MEDS: 0.9 % Sodium Chloride 1,000 ML IVC SCH (03:53)
[2021-04-17] MEDS: Artificial Tears SOLN 15 ML BOTTLE BOTH EYES SCH ×6 (03:55→23:26)
[2021-04-17 03:56] LABS: VBG Ionized Calcium 1.13 mmol/L (1.15-1.35)
[2021-04-17 04:04] LABS: Segmented Neutrophils % 78.2 %
[2021-04-17 04:06] LABS: Basophils # 0.1 K/mcL (0.0-0.2); Basophils % 0.5 %; Eosinophils # 0.3 K/mcL (0.0-0.6); Eosinophils % 2.2 %; Hematocrit 30.1 % (35.3-44.9); Hemoglobin 9.5 g/dL (11.5-15.4); Immature Granulocytes % 1.7 % (0-4); Immature Platelets 7.7 % (1.1-6.1); Lymphocytes # 1.1 K/mcL (0.6-4.6); Lymphocytes % 9.1 %; Mean Corpuscular HGB Conc 31.6 g/dL (31.6-35.5); Mean Corpuscular Hemoglobin 31.5 pg (28.0-33.3); Mean Corpuscular Volume 99.7 fL (83.0-100.0); Monocytes % 8.3 %; Neutrophils # 9.6 K/mcL (1.6-8.9); Nucleated Red Blood Cells 0.2 /100 WBC (0); Platelet Count 139 K/mcL (140-400); Red Blood Count 3.02 M/mcL (3.82-4.97); Red Cell Distribution Width 16.5 % (11.5-14.5); White Blood Count 12.3 K/mcL (4.3-11.1)
[2021-04-17 04:32] LABS: Albumin 3.4 g/dL (3.5-5.7); Albumin/Globulin Ratio 1.7 (1.1-2.2); Bilirubin,Total 0.6 mg/dL (0.3-1.0); Calcium 7.8 mg/dL (8.6-10.3); Magnesium 2.4 mg/dL (1.6-2.6); Phosphorous 2.9 mg/dL (2.7-4.5); Potassium 3.9 mEq/L (3.5-5.1); Total Protein 5.4 g/dL (6.4-8.9)
[2021-04-17] MEDS: FentaNYL (PF) 1,000 MCG/100 ML IV.SOLN IVC SCH (04:42)
[2021-04-17] MEDS: *HR* Heparin 5,000 UNIT/ML VIAL SQ SCH ×3 (05:14→20:31)
[2021-04-17] MEDS: Cefepime HCl 2,000 MG in 0.9 % Sodium Chloride 10 ML IVP SCH ×2 (05:15→17:34)
[2021-04-17] MEDS: Budesonide/Formoterol 160/4.5 1 PUFF INH IH SCH ×2 (07:05→20:32)
[2021-04-17] MEDS: Pantoprazole 40 MG VIAL IVP SCH (07:40)
[2021-04-17] MEDS: Docusate Oral Soln 100 MG/10 ML UDC GTUBE SCH ×2 (07:40→20:31)
[2021-04-17] MEDS: Chlorhexidine Rinse 15 ML MOUTHWASH MM SCH ×2 (07:40→20:31)
[2021-04-17] MEDS: MetroNIDAZOLE 500 MG/100 ML 500 MG/100 ML BAG IVPB SCH ×3 (07:41→23:41)
[2021-04-17] MEDS: Aspirin 81 MG TAB.CHEW PO SCH (07:41)
[2021-04-17] MEDS: Morphine Sulfate 2 MG/ML SYRINGE IVP PRN (07:52)
[2021-04-17] MEDS: Insulin DETEMIR 100 UNIT/ML X5UNITS SUBQ SCH ×2 (08:38→20:33)
[2021-04-17 09:40] LABS: ABG Base Excess -7 mEq/L (-2 to 3); ABG HCO3 20 mEq/L (21-27); ABG Oxygen Saturation 93 % (95-98); ABG PCO2 48 mmHg (35-45); ABG PH 7.23 pH Units (7.32-7.45); ABG PO2 81 mmHg (85-104); ABG TCO2 21 mEq/L (20-26); Blood Gas Modality CPAP/PS; Blood Gas Pressure Support 7 cm H2O
[2021-04-17 14:45] LABS: ABG Base Excess -6 mEq/L (-2 to 3); ABG HCO3 21 mEq/L (21-27); ABG Oxygen Saturation 94 % (95-98); ABG PCO2 50 mmHg (35-45); ABG PH 7.24 pH Units (7.32-7.45); ABG PO2 85 mmHg (85-104); ABG TCO2 23 mEq/L (20-26); Blood Gas Modality CPAP/PS; Blood Gas Pressure Support 7 cm H2O
[2021-04-17 17:00] LABS: ABG Base Excess -5 mEq/L (-2 to 3); ABG HCO3 19 mEq/L (21-27); ABG Oxygen Saturation 98 % (95-98); ABG PCO2 30 mmHg (35-45); ABG PO2 105 mmHg (85-104); ABG TCO2 20 mEq/L (20-26); Blood Gas Modality ASSIST CONTROL; Blood Gas VT 450 cc
[2021-04-17] MEDS ORDERED: 0.9 % Sodium Chloride 1,000 ML IVC SCH (17:43)
[2021-04-17] MEDS: Furosemide 40 MG/4 ML VIAL IVP SCH (20:32)
[2021-04-18] MEDS: Ipratropium/Albuterol Neb 3 ML IH SCH ×9 (00:12→23:08)
[2021-04-18] MEDS: Morphine Sulfate 2 MG/ML SYRINGE IVP PRN ×2 (01:21→19:34)
[2021-04-18] MEDS: niCARdipine 20 MG/200 ML MLS IVC SCH ×12 (01:55→23:05)
[2021-04-18 03:25] LABS: VBG Ionized Calcium 1.17 mmol/L (1.15-1.35)
[2021-04-18 03:26] LABS: Basophils # 0.1 K/mcL (0.0-0.2); Basophils % 0.5 %; Eosinophils # 0.3 K/mcL (0.0-0.6); Hematocrit 29.3 % (35.3-44.9); Hemoglobin 9.5 g/dL (11.5-15.4); Lymphocytes % 9.3 %; Mean Corpuscular HGB Conc 32.4 g/dL (31.6-35.5); Mean Corpuscular Hemoglobin 32.3 pg (28.0-33.3); Mean Corpuscular Volume 99.7 fL (83.0-100.0); Mean Platelet Volume 12.2 fL (9.4-12.4); Monocytes # 0.9 K/mcL (0.0-1.3); Neutrophils # 8.4 K/mcL (1.6-8.9); Platelet Count 119 K/mcL (140-400); Red Blood Count 2.94 M/mcL (3.82-4.97); Red Cell Distribution Width 16.9 % (11.5-14.5); Segmented Neutrophils % 77.2 %; White Blood Count 10.9 K/mcL (4.3-11.1)
[2021-04-18] MEDS: Artificial Tears SOLN 15 ML BOTTLE BOTH EYES SCH ×3 (03:39→12:40)
[2021-04-18] MEDS: Insulin LISPRO 300 UNITS/3 ML VIAL SUBQ SCH ×6 (03:39→23:01)
[2021-04-18 04:06] LABS: Albumin 3.4 g/dL (3.5-5.7); Albumin/Globulin Ratio 1.5 (1.1-2.2); Bilirubin,Total 0.8 mg/dL (0.3-1.0); Calcium 8.1 mg/dL (8.6-10.3); Globulin 2.2 g/dL (2.4-3.5); Magnesium 2.4 mg/dL (1.6-2.6); Phosphorous 1.3 mg/dL (2.7-4.5); Potassium 3.3 mEq/L (3.5-5.1); Total Protein 5.6 g/dL (6.4-8.9)
[2021-04-18 04:15] LABS: ABG Base Excess -5 mEq/L (-2 to 3); ABG HCO3 21 mEq/L (21-27); ABG Oxygen Saturation 97 % (95-98); ABG PCO2 41 mmHg (35-45); ABG PH 7.31 pH Units (7.32-7.45); ABG PO2 99 mmHg (85-104); ABG TCO2 22 mEq/L (20-26); Blood Gas Modality ASSIST CONTROL; Blood Gas VT 450 cc
[2021-04-18] MEDS ORDERED: Potassium Chloride Elixir 20 MEQ/15 ML UDC GTUBE PRN (04:15)
[2021-04-18] MEDS: Cefepime HCl 2,000 MG in 0.9 % Sodium Chloride 10 ML IVP SCH ×2 (05:02→18:23)
[2021-04-18] MEDS: *HR* Heparin 5,000 UNIT/ML VIAL SQ SCH (05:03)
[2021-04-18] MEDS: Budesonide/Formoterol 160/4.5 1 PUFF INH IH SCH ×2 (08:12→20:16)
[2021-04-18] MEDS: Chlorhexidine Rinse 15 ML MOUTHWASH MM SCH ×2 (08:55→20:04)
[2021-04-18] MEDS: MetroNIDAZOLE 500 MG/100 ML 500 MG/100 ML BAG IVPB SCH ×3 (08:55→23:01)
[2021-04-18] MEDS: Pantoprazole 40 MG VIAL IVP SCH (08:55)
[2021-04-18] MEDS: Furosemide 40 MG/4 ML VIAL IVP SCH ×2 (08:55→20:04)
[2021-04-18 08:56] LABS: ABG Base Excess -6 mEq/L (-2 to 3); ABG HCO3 20 mEq/L (21-27); ABG Oxygen Saturation 90 % (95-98); ABG PCO2 41 mmHg (35-45); ABG PO2 66 mmHg (85-104); ABG TCO2 22 mEq/L (20-26); Blood Gas Modality CPAP/PS; Blood Gas Pressure Support 15 cm H2O
[2021-04-18] MEDS: Aspirin 81 MG TAB.CHEW PO SCH ×2 (08:56→10:00)
[2021-04-18] MEDS: Docusate Oral Soln 100 MG/10 ML UDC GTUBE SCH ×3 (08:56→18:44)
[2021-04-18] MEDS: Insulin DETEMIR 100 UNIT/ML X5UNITS SUBQ SCH ×2 (09:29→18:44)
[2021-04-18 11:09] LABS: Phosphorous 2.6 mg/dL (2.7-4.5)
[2021-04-18] MEDS: Ondansetron 4 MG/2 ML VIAL IVP PRN ×3 (11:35→22:16)
[2021-04-18] MEDS: *HR* Metoprolol 5 MG/5 ML VIAL IVP SCH ×3 (13:40→23:00)
[2021-04-19 03:31] LABS: Basophils # 0.1 K/mcL (0.0-0.2); Basophils % 0.8 %; Eosinophils # 0.1 K/mcL (0.0-0.6); Eosinophils % 0.9 %; Hematocrit 33.8 % (35.3-44.9); Hemoglobin 10.4 g/dL (11.5-15.4); Immature Granulocytes % 2.5 % (0-4); Lymphocytes # 1.1 K/mcL (0.6-4.6); Lymphocytes % 7.6 %; Mean Corpuscular HGB Conc 30.8 g/dL (31.6-35.5); Mean Corpuscular Hemoglobin 31.6 pg (28.0-33.3); Mean Corpuscular Volume 102.7 fL (83.0-100.0); Mean Platelet Volume 12.2 fL (9.4-12.4); Monocytes # 1.3 K/mcL (0.0-1.3); Monocytes % 9.3 %; Neutrophils # 11.2 K/mcL (1.6-8.9); Nucleated Red Blood Cells 1.3 /100 WBC (0); Platelet Count 133 K/mcL (140-400); Red Blood Count 3.29 M/mcL (3.82-4.97); Red Cell Distribution Width 17.2 % (11.5-14.5); Segmented Neutrophils % 78.9 %; White Blood Count 14.2 K/mcL (4.3-11.1)
[2021-04-19 03:44] LABS: Alanine Aminotransferase 455 Units/L (7-52); Albumin 3.5 g/dL (3.5-5.7); Albumin/Globulin Ratio 1.3 (1.1-2.2); Alkaline Phosphatase 122 Units/L (34-104); Aspartate Amino Transferase 136 Units/L (13-39); BUN/Creatinine Ratio 38 (6-26); Bilirubin,Total 0.9 mg/dL (0.3-1.0); Blood Urea Nitrogen 40 mg/dL (6-20); Calcium 8.9 mg/dL (8.6-10.3); Carbon Dioxide 24 mEq/L (23-29); Chloride 118 mEq/L (98-107); Globulin 2.8 g/dL (2.4-3.5); Glucose 127 mg/dL (70-105); Magnesium 2.5 mg/dL (1.6-2.6); Osmolality,Calculated 319 (280-300); Phosphorous 2.3 mg/dL (2.7-4.5); Potassium 3.7 mEq/L (3.5-5.1); Sodium 149 mEq/L (136-145); Total Protein 6.3 g/dL (6.4-8.9); eGFR For African Americans > 60 (> 60); eGFR For Non-African Americans 54 (> 60)
[2021-04-19 03:59] LABS: VBG Ionized Calcium 1.21 mmol/L (1.15-1.35)
[2021-04-19] MEDS: Insulin LISPRO 300 UNITS/3 ML VIAL SUBQ SCH ×6 (04:00→23:04)
[2021-04-19] MEDS: Potassium Chloride 40 MEQ/200 ML BAG IVPB PRN ×2 (04:15→15:00)
[2021-04-19] MEDS: Ipratropium/Albuterol Neb 3 ML IH SCH ×6 (04:43→23:31)
[2021-04-19] MEDS: *HR* Fondaparinux 2.5 MG/0.5 ML SYRINGE SQ SCH (05:01)
[2021-04-19] MEDS: Cefepime HCl 2,000 MG in 0.9 % Sodium Chloride 10 ML IVP SCH ×2 (05:03→17:53)
[2021-04-19] MEDS: *HR* Metoprolol 5 MG/5 ML VIAL IVP SCH ×5 (05:03→23:04)
[2021-04-19] MEDS: Budesonide/Formoterol 160/4.5 1 PUFF INH IH SCH ×2 (08:00→19:46)
[2021-04-19] MEDS: Docusate Oral Soln 100 MG/10 ML UDC GTUBE SCH ×2 (08:01→20:01)
[2021-04-19] MEDS: Aspirin 81 MG TAB.CHEW PO SCH (08:02)
[2021-04-19] MEDS: Chlorhexidine Rinse 15 ML MOUTHWASH MM SCH ×2 (08:02→19:05)
[2021-04-19] MEDS: MetroNIDAZOLE 500 MG/100 ML 500 MG/100 ML BAG IVPB SCH ×3 (08:02→23:07)
[2021-04-19] MEDS: Furosemide 40 MG/4 ML VIAL IVP SCH (08:03)
[2021-04-19] MEDS: Pantoprazole 40 MG VIAL IVP SCH (08:03)
[2021-04-19] MEDS: niCARdipine 20 MG/200 ML MLS IVC SCH ×5 (08:21→23:13)
[2021-04-19] MEDS: Insulin DETEMIR 100 UNIT/ML X5UNITS SUBQ SCH ×2 (08:28→20:01)
[2021-04-19 09:33] LABS: ABG Base Excess -5 mEq/L (-2 to 3); ABG HCO3 20 mEq/L (21-27); ABG Oxygen Saturation 90 % (95-98); ABG PCO2 35 mmHg (35-45); ABG PH 7.37 pH Units (7.32-7.45); ABG PO2 59 mmHg (85-104); ABG TCO2 21 mEq/L (20-26)
[2021-04-19] MEDS ORDERED: D5% in Water 1,000 ML IVC SCH ×2 (13:00→20:45)
[2021-04-19 13:09] LABS: Phosphorous 1.9 mg/dL (2.7-4.5); Potassium 3.8 mEq/L (3.5-5.1)
[2021-04-19] MEDS: Morphine Sulfate 2 MG/ML SYRINGE IVP PRN (13:59)
[2021-04-19] MEDS: Ondansetron 4 MG/2 ML VIAL IVP PRN (15:11)
[2021-04-19] MEDS ORDERED: Potassium Phosphate 44 MEQ in 0.9 % Sodium Chloride 250 ML IVPB ONE (15:28)
[2021-04-19] MEDS: Dexmedetomidine HCl 400 MCG/100 ML MLS IVC SCH ×2 (17:17→23:11)
[2021-04-19 18:55] LABS: BUN/Creatinine Ratio 38 (6-26); Blood Urea Nitrogen 37 mg/dL (6-20); Calcium 7.9 mg/dL (8.6-10.3); Carbon Dioxide 21 mEq/L (23-29); Chloride 119 mEq/L (98-107); Glucose 240 mg/dL (70-105); Osmolality,Calculated 323 (280-300); Potassium 4.1 mEq/L (3.5-5.1); Sodium 148 mEq/L (136-145); eGFR For African Americans > 60 (> 60); eGFR For Non-African Americans 59 (> 60)
[2021-04-19] MEDS ORDERED: QUEtiapine Fumarate 25 MG TABLET PO SCH (21:00)
[2021-04-20] MEDS: Cefepime HCl 2,000 MG in 0.9 % Sodium Chloride 10 ML IVP SCH ×3 (01:00→17:31)
[2021-04-20] MEDS: niCARdipine 20 MG/200 ML MLS IVC SCH ×4 (01:01→17:29)
[2021-04-20 03:10] LABS: VBG Ionized Calcium 1.22 mmol/L (1.15-1.35)
[2021-04-20 03:11] LABS: Basophils # 0.1 K/mcL (0.0-0.2); Basophils % 0.7 %; Eosinophils # 0.2 K/mcL (0.0-0.6); Eosinophils % 1.3 %; Hematocrit 31.8 % (35.3-44.9); Hemoglobin 9.8 g/dL (11.5-15.4); Immature Granulocytes % 2.7 % (0-4); Lymphocytes # 1.2 K/mcL (0.6-4.6); Lymphocytes % 9.8 %; Mean Corpuscular HGB Conc 30.8 g/dL (31.6-35.5); Mean Corpuscular Hemoglobin 31.5 pg (28.0-33.3); Mean Corpuscular Volume 102.3 fL (83.0-100.0); Mean Platelet Volume 11.9 fL (9.4-12.4); Monocytes # 1.1 K/mcL (0.0-1.3); Monocytes % 9.3 %; Nucleated Red Blood Cells 1.5 /100 WBC (0); Platelet Count 127 K/mcL (140-400); Red Blood Count 3.11 M/mcL (3.82-4.97); Red Cell Distribution Width 17.4 % (11.5-14.5); Segmented Neutrophils % 76.2 %; White Blood Count 11.9 K/mcL (4.3-11.1)
[2021-04-20 03:27] LABS: Albumin 3.3 g/dL (3.5-5.7); Albumin/Globulin Ratio 1.4 (1.1-2.2); Bilirubin,Total 0.7 mg/dL (0.3-1.0); Calcium 8.5 mg/dL (8.6-10.3); Globulin 2.4 g/dL (2.4-3.5); Magnesium 2.5 mg/dL (1.6-2.6); Phosphorous 2.4 mg/dL (2.7-4.5); Potassium 4.1 mEq/L (3.5-5.1); Total Protein 5.7 g/dL (6.4-8.9)
[2021-04-20] MEDS: Ipratropium/Albuterol Neb 3 ML IH SCH ×6 (03:30→23:20)
[2021-04-20] MEDS: Insulin LISPRO 300 UNITS/3 ML VIAL SUBQ SCH ×5 (03:35→20:01)
[2021-04-20] MEDS: Dexmedetomidine HCl 400 MCG/100 ML MLS IVC SCH (05:01)
[2021-04-20] MEDS: *HR* Fondaparinux 2.5 MG/0.5 ML SYRINGE SQ SCH (05:02)
[2021-04-20] MEDS: *HR* Metoprolol 5 MG/5 ML VIAL IVP SCH ×3 (06:49→17:31)
[2021-04-20] MEDS: D5% in Water 1,000 ML IVC SCH ×3 (06:50→20:00)
[2021-04-20] MEDS: Budesonide/Formoterol 160/4.5 1 PUFF INH IH SCH ×2 (07:13→19:29)
[2021-04-20] MEDS: Pantoprazole 40 MG VIAL IVP SCH (07:51)
[2021-04-20] MEDS: MetroNIDAZOLE 500 MG/100 ML 500 MG/100 ML BAG IVPB SCH ×2 (07:52→16:22)
[2021-04-20] MEDS: Aspirin 81 MG TAB.CHEW PO SCH (07:52)
[2021-04-20] MEDS: Insulin DETEMIR 100 UNIT/ML X5UNITS SUBQ SCH ×2 (08:50→19:42)
[2021-04-20 10:36] LABS: BUN/Creatinine Ratio 38 (6-26); Blood Urea Nitrogen 41 mg/dL (6-20); Calcium 8.3 mg/dL (8.6-10.3); Carbon Dioxide 24 mEq/L (23-29); Chloride 118 mEq/L (98-107); Glucose 169 mg/dL (70-105); Osmolality,Calculated 318 (280-300); Potassium 3.9 mEq/L (3.5-5.1); Sodium 147 mEq/L (136-145); eGFR For African Americans > 60 (> 60); eGFR For Non-African Americans 51 (> 60)
[2021-04-20] MEDS ORDERED: QUEtiapine Fumarate 25 MG TABLET PO ONE (11:30)
[2021-04-20] MEDS: Docusate Oral Soln 100 MG/10 ML UDC GTUBE SCH ×2 (11:45→19:41)
[2021-04-20] MEDS: Ondansetron 4 MG/2 ML VIAL IVP PRN (12:20)
[2021-04-20] MEDS: QUEtiapine Fumarate 25 MG TABLET PO SCH (19:41)
[2021-04-20] MEDS ORDERED: QUEtiapine Fumarate 25 MG TABLET PO SCH (21:00)
[2021-04-21] MEDS: Insulin LISPRO 300 UNITS/3 ML VIAL SUBQ SCH ×6 (00:14→20:09)
[2021-04-21] MEDS: *HR* Metoprolol 5 MG/5 ML VIAL IVP SCH ×5 (00:19→23:36)
[2021-04-21 03:56] LABS: Basophils # 0.1 K/mcL (0.0-0.2); Basophils % 0.7 %; Eosinophils # 0.5 K/mcL (0.0-0.6); Eosinophils % 3.7 %; Hematocrit 34.2 % (35.3-44.9); Hemoglobin 10.5 g/dL (11.5-15.4); Immature Granulocytes % 4.4 % (0-4); Lymphocytes # 1.2 K/mcL (0.6-4.6); Lymphocytes % 8.3 %; Mean Corpuscular HGB Conc 30.7 g/dL (31.6-35.5); Mean Corpuscular Hemoglobin 31.6 pg (28.0-33.3); Mean Platelet Volume 11.5 fL (9.4-12.4); Monocytes # 1.2 K/mcL (0.0-1.3); Monocytes % 8.3 %; Neutrophils # 10.9 K/mcL (1.6-8.9); Nucleated Red Blood Cells 0.6 /100 WBC (0); Platelet Count 157 K/mcL (140-400); Red Blood Count 3.32 M/mcL (3.82-4.97); Red Cell Distribution Width 17.5 % (11.5-14.5); Segmented Neutrophils % 74.6 %; White Blood Count 14.7 K/mcL (4.3-11.1)
[2021-04-21 03:56] LABS: VBG Ionized Calcium 1.25 mmol/L (1.15-1.35)
[2021-04-21] MEDS: Ipratropium/Albuterol Neb 3 ML IH SCH ×5 (04:14→20:26)
[2021-04-21 04:24] LABS: Alanine Aminotransferase 212 Units/L (7-52); Albumin 3.1 g/dL (3.5-5.7); Albumin/Globulin Ratio 1.1 (1.1-2.2); Alkaline Phosphatase 107 Units/L (34-104); Aspartate Amino Transferase 30 Units/L (13-39); BUN/Creatinine Ratio 34 (6-26); Bilirubin,Total 0.8 mg/dL (0.3-1.0); Blood Urea Nitrogen 32 mg/dL (6-20); Calcium 8.5 mg/dL (8.6-10.3); Carbon Dioxide 23 mEq/L (23-29); Chloride 114 mEq/L (98-107); Globulin 2.7 g/dL (2.4-3.5); Glucose 120 mg/dL (70-105); Magnesium 2.3 mg/dL (1.6-2.6); Osmolality,Calculated 304 (280-300); Potassium 3.6 mEq/L (3.5-5.1); Sodium 143 mEq/L (136-145); Total Protein 5.8 g/dL (6.4-8.9); eGFR For African Americans > 60 (> 60); eGFR For Non-African Americans > 60 (> 60)
[2021-04-21] MEDS: *HR* Fondaparinux 2.5 MG/0.5 ML SYRINGE SQ SCH (05:41)
[2021-04-21] MEDS: Potassium Chloride 40 MEQ/200 ML BAG IVPB PRN (05:53)
[2021-04-21] MEDS: D5% in Water 1,000 ML IVC SCH (06:51)
[2021-04-21] MEDS: Budesonide/Formoterol 160/4.5 1 PUFF INH IH SCH ×2 (07:39→20:27)
[2021-04-21] MEDS: Docusate Oral Soln 100 MG/10 ML UDC GTUBE SCH ×2 (08:02→20:09)
[2021-04-21] MEDS: Pantoprazole 40 MG VIAL IVP SCH (08:02)
[2021-04-21] MEDS: Aspirin 81 MG TAB.CHEW PO SCH (08:02)
[2021-04-21] MEDS: QUEtiapine Fumarate 25 MG TABLET PO SCH ×2 (08:02→20:08)
[2021-04-21] MEDS: Insulin DETEMIR 100 UNIT/ML X5UNITS SUBQ SCH ×2 (08:04→20:09)
[2021-04-21] MEDS: Furosemide 20 MG/2 ML VIAL IVP SCH (10:00)
[2021-04-21] MEDS: niCARdipine 20 MG/200 ML MLS IVC SCH ×7 (12:29→22:14)
[2021-04-21] MEDS ORDERED: Cefuroxime PO 500 MG TABLET PO SCH (18:00)
[2021-04-22] MEDS ORDERED: Cefepime HCl 1,000 MG in 0.9 % Sodium Chloride 10 ML IVP SCH
[2021-04-22] MEDS: Ipratropium/Albuterol Neb 3 ML IH SCH ×7 (00:18→23:40)
[2021-04-22] MEDS: Insulin LISPRO 300 UNITS/3 ML VIAL SUBQ SCH ×6 (00:35→21:40)
[2021-04-22] MEDS: Dexmedetomidine HCl 400 MCG/100 ML MLS IVC SCH (04:08)
[2021-04-22 04:10] LABS: VBG Ionized Calcium 1.22 mmol/L (1.15-1.35)
[2021-04-22 04:18] LABS: Basophils # 0.1 K/mcL (0.0-0.2); Basophils % 0.6 %; Eosinophils # 0.4 K/mcL (0.0-0.6); Eosinophils % 3.4 %; Hematocrit 33.7 % (35.3-44.9); Hemoglobin 10.4 g/dL (11.5-15.4); Immature Granulocytes % 4.7 % (0-4); Lymphocytes # 1.1 K/mcL (0.6-4.6); Lymphocytes % 9.3 %; Mean Corpuscular HGB Conc 30.9 g/dL (31.6-35.5); Mean Corpuscular Volume 103.7 fL (83.0-100.0); Mean Platelet Volume 11.4 fL (9.4-12.4); Monocytes # 1.2 K/mcL (0.0-1.3); Monocytes % 10.3 %; Neutrophils # 8.1 K/mcL (1.6-8.9); Nucleated Red Blood Cells 0.5 /100 WBC (0); Platelet Count 174 K/mcL (140-400); Red Blood Count 3.25 M/mcL (3.82-4.97); Red Cell Distribution Width 17.8 % (11.5-14.5); Segmented Neutrophils % 71.7 %; White Blood Count 11.3 K/mcL (4.3-11.1)
[2021-04-22 04:23] LABS: Alanine Aminotransferase 150 Units/L (7-52); Albumin 3.2 g/dL (3.5-5.7); Albumin/Globulin Ratio 1.3 (1.1-2.2); Alkaline Phosphatase 119 Units/L (34-104); Aspartate Amino Transferase 23 Units/L (13-39); BUN/Creatinine Ratio 30 (6-26); Bilirubin,Total 0.8 mg/dL (0.3-1.0); Blood Urea Nitrogen 26 mg/dL (6-20); Calcium 8.5 mg/dL (8.6-10.3); Carbon Dioxide 24 mEq/L (23-29); Chloride 116 mEq/L (98-107); Globulin 2.5 g/dL (2.4-3.5); Glucose 86 mg/dL (70-105); Magnesium 2.2 mg/dL (1.6-2.6); Osmolality,Calculated 304 (280-300); Phosphorous 2.9 mg/dL (2.7-4.5); Potassium 4.1 mEq/L (3.5-5.1); Sodium 145 mEq/L (136-145); Total Protein 5.7 g/dL (6.4-8.9); eGFR For African Americans > 60 (> 60); eGFR For Non-African Americans > 60 (> 60)
[2021-04-22] MEDS: niCARdipine 20 MG/200 ML MLS IVC SCH ×3 (05:46→18:09)
[2021-04-22] MEDS: *HR* Fondaparinux 2.5 MG/0.5 ML SYRINGE SQ SCH (05:47)
[2021-04-22] MEDS: *HR* Metoprolol 5 MG/5 ML VIAL IVP SCH ×2 (05:48→13:05)
[2021-04-22] MEDS: Budesonide/Formoterol 160/4.5 1 PUFF INH IH SCH ×2 (07:56→19:43)
[2021-04-22] MEDS: Furosemide 20 MG/2 ML VIAL IVP SCH (08:22)
[2021-04-22] MEDS: Insulin DETEMIR 100 UNIT/ML X5UNITS SUBQ SCH ×2 (08:27→22:00)
[2021-04-22] MEDS: Pantoprazole 40 MG VIAL IVP SCH (08:27)
[2021-04-22] MEDS: Aspirin 81 MG TAB.CHEW PO SCH (09:59)
[2021-04-22] MEDS: QUEtiapine Fumarate 25 MG TABLET PO SCH ×2 (09:59→21:38)
[2021-04-22] MEDS: Docusate Oral Soln 100 MG/10 ML UDC GTUBE SCH ×2 (10:00→21:37)
[2021-04-22] MEDS ORDERED: Furosemide 40 MG in 0.9 % Sodium Chloride 50 ML IV SCH (18:00)
[2021-04-22] MEDS: lisinopriL 10 MG TABLET PO SCH (18:08)
[2021-04-22] MEDS: Morphine Sulfate 2 MG/ML SYRINGE IVP PRN (19:45)
[2021-04-22] MEDS: Furosemide 40 MG/4 ML VIAL IVP SCH (21:38)
[2021-04-22] MEDS: *HR* LORazepam 2 MG/ML VIAL IVP PRN (21:39)
[2021-04-23] MEDS: niCARdipine 20 MG/200 ML MLS IVC SCH ×8 (01:57→23:24)
[2021-04-23] MEDS: Insulin LISPRO 300 UNITS/3 ML VIAL SUBQ SCH ×7 (03:48→23:23)
[2021-04-23 04:10] LABS: Basophils # 0.1 K/mcL (0.0-0.2); Basophils % 0.5 %; Eosinophils # 0.3 K/mcL (0.0-0.6); Hematocrit 32.6 % (35.3-44.9); Immature Granulocytes % 4.3 % (0-4); Lymphocytes # 0.7 K/mcL (0.6-4.6); Lymphocytes % 6.3 %; Mean Corpuscular HGB Conc 30.7 g/dL (31.6-35.5); Mean Corpuscular Hemoglobin 32.2 pg (28.0-33.3); Mean Corpuscular Volume 104.8 fL (83.0-100.0); Mean Platelet Volume 11.2 fL (9.4-12.4); Monocytes # 1.1 K/mcL (0.0-1.3); Monocytes % 10.4 %; Neutrophils # 8.2 K/mcL (1.6-8.9); Nucleated Red Blood Cells 0.2 /100 WBC (0); Platelet Count 167 K/mcL (140-400); Red Blood Count 3.11 M/mcL (3.82-4.97); Segmented Neutrophils % 75.5 %; White Blood Count 10.8 K/mcL (4.3-11.1)
[2021-04-23 04:28] LABS: BUN/Creatinine Ratio 32 (6-26); Blood Urea Nitrogen 30 mg/dL (6-20); Calcium 8.8 mg/dL (8.6-10.3); Carbon Dioxide 27 mEq/L (23-29); Chloride 114 mEq/L (98-107); Glucose 102 mg/dL (70-105); Osmolality,Calculated 306 (280-300); Potassium 4.3 mEq/L (3.5-5.1); Sodium 145 mEq/L (136-145); eGFR For African Americans > 60 (> 60); eGFR For Non-African Americans > 60 (> 60)
[2021-04-23] MEDS: Ipratropium/Albuterol Neb 3 ML IH SCH ×6 (05:03→23:41)
[2021-04-23] MEDS: *HR* Fondaparinux 2.5 MG/0.5 ML SYRINGE SQ SCH (06:30)
[2021-04-23] MEDS ORDERED: Acetaminophen 325 MG TABLET PO PRN (07:49)
[2021-04-23] MEDS: *HR* LORazepam 2 MG/ML VIAL IVP PRN (07:55)
[2021-04-23] MEDS: Docusate Oral Soln 100 MG/10 ML UDC GTUBE SCH ×2 (07:58→20:57)
[2021-04-23] MEDS: Budesonide/Formoterol 160/4.5 1 PUFF INH IH SCH ×2 (07:58→20:33)
[2021-04-23] MEDS: lisinopriL 10 MG TABLET PO SCH (07:58)
[2021-04-23] MEDS: Aspirin 81 MG TAB.CHEW PO SCH (07:59)
[2021-04-23] MEDS: Furosemide 40 MG/4 ML VIAL IVP SCH ×2 (08:01→20:57)
[2021-04-23] MEDS ORDERED: QUEtiapine Fumarate 25 MG TABLET PO SCH (09:00)
[2021-04-23] MEDS: Insulin DETEMIR 100 UNIT/ML X5UNITS SUBQ SCH (11:18)
[2021-04-23] MEDS: QUEtiapine Fumarate 25 MG TABLET PO SCH (20:58)
[2021-04-24] MEDS: Ipratropium/Albuterol Neb 3 ML IH SCH ×6 (04:01→23:13)
[2021-04-24] MEDS: Insulin LISPRO 300 UNITS/3 ML VIAL SUBQ SCH ×5 (04:03→20:19)
[2021-04-24] MEDS: niCARdipine 20 MG/200 ML MLS IVC SCH ×2 (04:03→11:25)
[2021-04-24 05:01] LABS: VBG HCO3 31 mEq/L (21-27); VBG PCO2 57 mmHg (41-51); VBG PH 7.34 pH Units (7.32-7.42); VBG PO2 104 mmHg (25-50)
[2021-04-24 05:01] LABS: Basophils # 0.1 K/mcL (0.0-0.2); Basophils % 0.6 %; Eosinophils # 0.3 K/mcL (0.0-0.6); Eosinophils % 2.1 %; Hematocrit 36.2 % (35.3-44.9); Hemoglobin 11.2 g/dL (11.5-15.4); Immature Granulocytes % 2.9 % (0-4); Lymphocytes # 1.1 K/mcL (0.6-4.6); Lymphocytes % 8.3 %; Mean Corpuscular HGB Conc 30.9 g/dL (31.6-35.5); Mean Corpuscular Hemoglobin 32.2 pg (28.0-33.3); Mean Platelet Volume 11.5 fL (9.4-12.4); Monocytes # 1.2 K/mcL (0.0-1.3); Monocytes % 9.3 %; Neutrophils # 9.7 K/mcL (1.6-8.9); Platelet Count 191 K/mcL (140-400); Red Blood Count 3.48 M/mcL (3.82-4.97); Red Cell Distribution Width 18.4 % (11.5-14.5); Segmented Neutrophils % 76.8 %; White Blood Count 12.6 K/mcL (4.3-11.1)
[2021-04-24 05:20] LABS: Alanine Aminotransferase 101 Units/L (7-52); Albumin 3.4 g/dL (3.5-5.7); Albumin/Globulin Ratio 1.1 (1.1-2.2); Alkaline Phosphatase 139 Units/L (34-104); Aspartate Amino Transferase 35 Units/L (13-39); BUN/Creatinine Ratio 33 (6-26); Bilirubin,Total 0.8 mg/dL (0.3-1.0); Blood Urea Nitrogen 26 mg/dL (6-20); Calcium 9.1 mg/dL (8.6-10.3); Carbon Dioxide 30 mEq/L (23-29); Chloride 109 mEq/L (98-107); Globulin 3.1 g/dL (2.4-3.5); Glucose 254 mg/dL (70-105); Magnesium 2.1 mg/dL (1.6-2.6); Osmolality,Calculated 315 (280-300); Potassium 4.2 mEq/L (3.5-5.1); Sodium 146 mEq/L (136-145); Total Protein 6.5 g/dL (6.4-8.9); eGFR For African Americans > 60 (> 60); eGFR For Non-African Americans > 60 (> 60)
[2021-04-24] MEDS: *HR* Fondaparinux 2.5 MG/0.5 ML SYRINGE SQ SCH (06:00)
[2021-04-24] MEDS: amLODIPine 5 MG TABLET PO SCH (08:25)
[2021-04-24] MEDS: Aspirin 81 MG TAB.CHEW PO SCH (08:25)
[2021-04-24] MEDS: Docusate Oral Soln 100 MG/10 ML UDC GTUBE SCH ×2 (08:26→21:28)
[2021-04-24] MEDS: lisinopriL 10 MG TABLET PO SCH (08:26)
[2021-04-24] MEDS: Furosemide 40 MG/4 ML VIAL IVP SCH ×2 (08:26→21:28)
[2021-04-24 08:52] LABS: Bilirubin,Urine Negative (Negative); Blood,Urine Small (Negative); Clarity,Urine Clear (Clear); Color,Urine Colorless (Yellow); Glucose,Urine (UA) 30 mg/dL (Normal); Ketones,Urine Negative (Negative); Leukocyte Esterase,Urine Negative (Negative); Mucus,Urine Few per lpf (None-Few); Nitrite,Urine Negative (Negative); Protein,Urine 70 mg/dL (Neg-Trace); RBC,Urine 0-3 per hpf (0-3); Specific Gravity,Urine 1.009 (1.010-1.025); Squamous Epithelial Cell,Urine Few per hpf (None-Few); Urobilinogen,Urine Normal (Normal); WBC,Urine 0-3 per hpf (0-3)
[2021-04-24] MEDS: QUEtiapine Fumarate 25 MG TABLET PO SCH ×2 (08:55→21:26)
[2021-04-24] MEDS: Insulin DETEMIR 100 UNIT/ML X5UNITS SUBQ SCH (08:55)
[2021-04-24 10:11] LABS: Adenovirus Not Detected (Not Detect); Bordetella Pertussis Not Detected (Not Detect); Chlamydophila pneumoniae Not Detected (Not Detect); Coronavirus 229E Not Detected (Not Detect); Coronavirus HKU1 Not Detected (Not Detect); Coronavirus NL63 Not Detected (Not Detect); Coronavirus OC43 Not Detected (Not Detect); Human Metapneumovirus Not Detected (Not Detect); Human Rhinovirus/Enterovirus Not Detected (Not Detect); Influenza A Subtype 2009 H1 Not Detected (Not Detect); Influenza B Not Detected (Not Detect); Mycoplasma pneumoniae Not Detected (Not Detect); Parainfluenza Virus 1 Not Detected (Not Detect); Parainfluenza Virus 2 Not Detected (Not Detect); Parainfluenza Virus 3 Not Detected (Not Detect); Parainfluenza Virus 4 Not Detected (Not Detect); Respiratory Syncytial Virus Not Detected (Not Detect); SARS-CoV-2 Not Detected (Not Detect)
[2021-04-24] MEDS: Budesonide/Formoterol 160/4.5 1 PUFF INH IH SCH ×2 (11:55→20:09)
[2021-04-24] MEDS: Nystatin SUSP 5 ML UD.LIQ PO SCH ×3 (13:10→21:29)
[2021-04-24] MEDS: Nystatin POWDER 30 GM BOTTLE TP SCH (13:40)
[2021-04-25] MEDS: Insulin LISPRO 300 UNITS/3 ML VIAL SUBQ SCH ×6 (00:11→21:55)
[2021-04-25] MEDS: Ipratropium/Albuterol Neb 3 ML IH SCH ×5 (03:33→20:04)
[2021-04-25 04:06] LABS: VBG HCO3 35 mEq/L (21-27); VBG PCO2 64 mmHg (41-51); VBG PH 7.35 pH Units (7.32-7.42); VBG PO2 95 mmHg (25-50)
[2021-04-25 04:15] LABS: Basophils # 0.1 K/mcL (0.0-0.2); Basophils % 0.5 %; Eosinophils # 0.3 K/mcL (0.0-0.6); Eosinophils % 2.3 %; Hematocrit 35.9 % (35.3-44.9); Hemoglobin 10.9 g/dL (11.5-15.4); Lymphocytes # 0.8 K/mcL (0.6-4.6); Lymphocytes % 5.8 %; Mean Corpuscular HGB Conc 30.4 g/dL (31.6-35.5); Mean Corpuscular Hemoglobin 31.9 pg (28.0-33.3); Mean Platelet Volume 11.3 fL (9.4-12.4); Monocytes # 1.3 K/mcL (0.0-1.3); Monocytes % 9.4 %; Neutrophils # 11.4 K/mcL (1.6-8.9); Platelet Count 196 K/mcL (140-400); Red Blood Count 3.42 M/mcL (3.82-4.97); Red Cell Distribution Width 18.6 % (11.5-14.5); White Blood Count 14.2 K/mcL (4.3-11.1)
[2021-04-25 04:26] LABS: Alanine Aminotransferase 73 Units/L (7-52); Alkaline Phosphatase 125 Units/L (34-104); Aspartate Amino Transferase 23 Units/L (13-39); BUN/Creatinine Ratio 32 (6-26); Bilirubin,Total 0.8 mg/dL (0.3-1.0); Blood Urea Nitrogen 25 mg/dL (6-20); Calcium 9.1 mg/dL (8.6-10.3); Carbon Dioxide 35 mEq/L (23-29); Chloride 110 mEq/L (98-107); Globulin 3.1 g/dL (2.4-3.5); Glucose 82 mg/dL (70-105); Magnesium 2.1 mg/dL (1.6-2.6); Osmolality,Calculated 311 (280-300); Potassium 3.5 mEq/L (3.5-5.1); Sodium 149 mEq/L (136-145); Total Protein 6.1 g/dL (6.4-8.9); eGFR For African Americans > 60 (> 60); eGFR For Non-African Americans > 60 (> 60)
[2021-04-25] MEDS: Nystatin POWDER 30 GM BOTTLE TP SCH ×3 (05:43→22:00)
[2021-04-25] MEDS: *HR* Fondaparinux 2.5 MG/0.5 ML SYRINGE SQ SCH (05:55)
[2021-04-25] MEDS: Budesonide/Formoterol 160/4.5 1 PUFF INH IH SCH ×2 (07:44→20:11)
[2021-04-25] MEDS ORDERED: Potassium Chloride Elixir 20 MEQ/15 ML UDC PO ONE (07:53)
[2021-04-25] MEDS: Docusate Oral Soln 100 MG/10 ML UDC GTUBE SCH ×3 (08:13→22:00)
[2021-04-25] MEDS: Nystatin SUSP 5 ML UD.LIQ PO SCH ×5 (08:13→22:14)
[2021-04-25] MEDS: QUEtiapine Fumarate 25 MG TABLET PO SCH ×2 (08:15→21:58)
[2021-04-25] MEDS: amLODIPine 5 MG TABLET PO SCH (08:15)
[2021-04-25] MEDS: lisinopriL 10 MG TABLET PO SCH (08:16)
[2021-04-25] MEDS: Aspirin 81 MG TAB.CHEW PO SCH (08:16)
[2021-04-25] MEDS: Furosemide 40 MG/4 ML VIAL IVP SCH (08:17)
[2021-04-25] MEDS: Cefepime HCl 2,000 MG in 0.9 % Sodium Chloride Mini Bag 100 ML IVPB SCH ×2 (08:39→17:13)
[2021-04-25] MEDS: Insulin DETEMIR 100 UNIT/ML X5UNITS SUBQ SCH (09:50)
[2021-04-25] MEDS ORDERED: Ringers Solution, Lactated 1,000 ML IVC SCH (10:00)
[2021-04-26] MEDS: Ipratropium/Albuterol Neb 3 ML IH SCH ×7 (00:06→23:51)
[2021-04-26 03:08] LABS: VBG HCO3 34 mEq/L (21-27); VBG PCO2 66 mmHg (41-51); VBG PH 7.33 pH Units (7.32-7.42); VBG PO2 129 mmHg (25-50)
[2021-04-26 03:10] LABS: Basophils # 0.1 K/mcL (0.0-0.2); Basophils % 0.5 %; Eosinophils # 0.2 K/mcL (0.0-0.6); Eosinophils % 1.7 %; Hematocrit 34.5 % (35.3-44.9); Hemoglobin 10.5 g/dL (11.5-15.4); Immature Granulocytes % 1.9 % (0-4); Lymphocytes % 7.2 %; Mean Corpuscular HGB Conc 30.4 g/dL (31.6-35.5); Mean Corpuscular Hemoglobin 32.1 pg (28.0-33.3); Mean Corpuscular Volume 105.5 fL (83.0-100.0); Mean Platelet Volume 11.3 fL (9.4-12.4); Monocytes # 1.2 K/mcL (0.0-1.3); Neutrophils # 10.6 K/mcL (1.6-8.9); Platelet Count 198 K/mcL (140-400); Red Blood Count 3.27 M/mcL (3.82-4.97); Segmented Neutrophils % 79.7 %; White Blood Count 13.4 K/mcL (4.3-11.1)
[2021-04-26 03:33] LABS: Alanine Aminotransferase 58 Units/L (7-52); Albumin 3.1 g/dL (3.5-5.7); Alkaline Phosphatase 138 Units/L (34-104); Aspartate Amino Transferase 21 Units/L (13-39); BUN/Creatinine Ratio 32 (6-26); Bilirubin,Total 0.7 mg/dL (0.3-1.0); Blood Urea Nitrogen 23 mg/dL (6-20); Calcium 8.9 mg/dL (8.6-10.3); Carbon Dioxide 32 mEq/L (23-29); Chloride 110 mEq/L (98-107); Globulin 3.1 g/dL (2.4-3.5); Glucose 281 mg/dL (70-105); Osmolality,Calculated 320 (280-300); Sodium 148 mEq/L (136-145); Total Protein 6.2 g/dL (6.4-8.9); eGFR For African Americans > 60 (> 60); eGFR For Non-African Americans > 60 (> 60)
[2021-04-26] MEDS: Cefepime HCl 2,000 MG in 0.9 % Sodium Chloride Mini Bag 100 ML IVPB SCH ×2 (05:47→17:57)
[2021-04-26] MEDS: *HR* Fondaparinux 2.5 MG/0.5 ML SYRINGE SQ SCH (05:54)
[2021-04-26] MEDS ORDERED: D5% in Water 1,000 ML IVC SCH (07:30)
[2021-04-26] MEDS: Budesonide/Formoterol 160/4.5 1 PUFF INH IH SCH ×2 (07:47→20:56)
[2021-04-26] MEDS: amLODIPine 5 MG TABLET PO SCH (08:37)
[2021-04-26] MEDS: Aspirin 81 MG TAB.CHEW PO SCH (08:38)
[2021-04-26] MEDS: Docusate Oral Soln 100 MG/10 ML UDC GTUBE SCH ×2 (08:38→21:24)
[2021-04-26] MEDS: lisinopriL 10 MG TABLET PO SCH (08:38)
[2021-04-26] MEDS: Nystatin SUSP 5 ML UD.LIQ PO SCH ×4 (08:38→21:24)
[2021-04-26] MEDS: Insulin LISPRO 300 UNITS/3 ML VIAL SUBQ SCH ×4 (08:47→22:10)
[2021-04-26] MEDS: Nystatin POWDER 30 GM BOTTLE TP SCH ×2 (08:55→21:24)
[2021-04-26] MEDS: Insulin DETEMIR 100 UNIT/ML X5UNITS SUBQ SCH ×2 (09:06→22:15)
[2021-04-26] MEDS ORDERED: acetaZOLAMIDE 500 MG in Water for inj. (sterile) 5 ML IVP ONE (09:45)
[2021-04-26 14:01] LABS: BUN/Creatinine Ratio 31 (6-26); Blood Urea Nitrogen 26 mg/dL (6-20); Calcium 8.8 mg/dL (8.6-10.3); Carbon Dioxide 34 mEq/L (23-29); Chloride 107 mEq/L (98-107); Glucose 364 mg/dL (70-105); Osmolality,Calculated 320 (280-300); Potassium 3.8 mEq/L (3.5-5.1); Sodium 145 mEq/L (136-145); eGFR For African Americans > 60 (> 60); eGFR For Non-African Americans > 60 (> 60)
[2021-04-26] MEDS: *HR* Metoprolol 5 MG/5 ML VIAL IVP PRN (21:00)
[2021-04-26] MEDS: QUEtiapine Fumarate 25 MG TABLET PO SCH (22:15)
[2021-04-27] MEDS: Ipratropium/Albuterol Neb 3 ML IH SCH ×6 (04:19→23:45)
[2021-04-27] MEDS: *HR* Metoprolol 5 MG/5 ML VIAL IVP PRN (04:25)
[2021-04-27 05:52] LABS: Basophils # 0.1 K/mcL (0.0-0.2); Basophils % 0.8 %; Eosinophils # 0.3 K/mcL (0.0-0.6); Eosinophils % 2.8 %; Hematocrit 37.9 % (35.3-44.9); Hemoglobin 11.1 g/dL (11.5-15.4); Immature Granulocytes % 1.7 % (0-4); Lymphocytes # 1.1 K/mcL (0.6-4.6); Lymphocytes % 8.9 %; Mean Corpuscular HGB Conc 29.3 g/dL (31.6-35.5); Mean Corpuscular Hemoglobin 31.3 pg (28.0-33.3); Mean Corpuscular Volume 106.8 fL (83.0-100.0); Mean Platelet Volume 11.6 fL (9.4-12.4); Monocytes % 8.1 %; Neutrophils # 9.2 K/mcL (1.6-8.9); Platelet Count 201 K/mcL (140-400); Red Blood Count 3.55 M/mcL (3.82-4.97); Segmented Neutrophils % 77.7 %; White Blood Count 11.8 K/mcL (4.3-11.1)
[2021-04-27 06:02] LABS: VBG HCO3 33 mEq/L (21-27); VBG PCO2 63 mmHg (41-51); VBG PH 7.32 pH Units (7.32-7.42); VBG PO2 81 mmHg (25-50)
[2021-04-27 06:32] LABS: Alanine Aminotransferase 49 Units/L (7-52); Albumin 3.2 g/dL (3.5-5.7); Albumin/Globulin Ratio 1.1 (1.1-2.2); Alkaline Phosphatase 139 Units/L (34-104); Aspartate Amino Transferase 23 Units/L (13-39); BUN/Creatinine Ratio 30 (6-26); Bilirubin,Total 0.6 mg/dL (0.3-1.0); Blood Urea Nitrogen 21 mg/dL (6-20); Calcium 8.9 mg/dL (8.6-10.3); Carbon Dioxide 29 mEq/L (23-29); Chloride 109 mEq/L (98-107); Glucose 207 mg/dL (70-105); Osmolality,Calculated 311 (280-300); Potassium 3.8 mEq/L (3.5-5.1); Sodium 146 mEq/L (136-145); Total Protein 6.2 g/dL (6.4-8.9); eGFR For African Americans > 60 (> 60); eGFR For Non-African Americans > 60 (> 60)
[2021-04-27] MEDS: *HR* Fondaparinux 2.5 MG/0.5 ML SYRINGE SQ SCH (06:42)
[2021-04-27] MEDS: Budesonide/Formoterol 160/4.5 1 PUFF INH IH SCH ×2 (07:45→19:51)
[2021-04-27] MEDS: lisinopriL 10 MG TABLET PO SCH (08:40)
[2021-04-27] MEDS: amLODIPine 5 MG TABLET PO SCH (08:40)
[2021-04-27] MEDS: Nystatin SUSP 5 ML UD.LIQ PO SCH ×4 (08:40→20:00)
[2021-04-27] MEDS: Aspirin 81 MG TAB.CHEW PO SCH (08:40)
[2021-04-27] MEDS: Furosemide 40 MG/4 ML VIAL IVP SCH (08:40)
[2021-04-27] MEDS: Docusate Oral Soln 100 MG/10 ML UDC GTUBE SCH ×2 (08:40→20:00)
[2021-04-27] MEDS: Cefepime HCl 2,000 MG in 0.9 % Sodium Chloride Mini Bag 100 ML IVPB SCH ×2 (08:49→16:48)
[2021-04-27] MEDS: QUEtiapine Fumarate 25 MG TABLET PO SCH ×2 (11:53→21:15)
[2021-04-27] MEDS: Insulin LISPRO 300 UNITS/3 ML VIAL SUBQ SCH ×3 (13:10→21:15)
[2021-04-27] MEDS: Nystatin POWDER 30 GM BOTTLE TP SCH (20:00)
[2021-04-27] MEDS: Insulin DETEMIR 100 UNIT/ML X5UNITS SUBQ SCH (21:14)
[2021-04-28] MEDS: Ipratropium/Albuterol Neb 3 ML IH SCH ×6 (03:26→23:09)
[2021-04-28 05:21] LABS: VBG HCO3 35 mEq/L (21-27); VBG PCO2 67 mmHg (41-51); VBG PH 7.33 pH Units (7.32-7.42); VBG PO2 107 mmHg (25-50)
[2021-04-28 05:23] LABS: Basophils # 0.1 K/mcL (0.0-0.2); Basophils % 0.8 %; Eosinophils # 0.4 K/mcL (0.0-0.6); Eosinophils % 4.1 %; Hematocrit 35.4 % (35.3-44.9); Immature Granulocytes % 1.2 % (0-4); Lymphocytes # 1.1 K/mcL (0.6-4.6); Lymphocytes % 10.4 %; Mean Corpuscular HGB Conc 31.1 g/dL (31.6-35.5); Mean Corpuscular Hemoglobin 31.7 pg (28.0-33.3); Mean Platelet Volume 11.5 fL (9.4-12.4); Monocytes % 8.9 %; Neutrophils # 7.9 K/mcL (1.6-8.9); Platelet Count 205 K/mcL (140-400); Red Blood Count 3.47 M/mcL (3.82-4.97); Red Cell Distribution Width 17.7 % (11.5-14.5); Segmented Neutrophils % 74.6 %; White Blood Count 10.7 K/mcL (4.3-11.1)
[2021-04-28] MEDS: *HR* Fondaparinux 2.5 MG/0.5 ML SYRINGE SQ SCH (06:07)
[2021-04-28] MEDS: Cefepime HCl 2,000 MG in 0.9 % Sodium Chloride Mini Bag 100 ML IVPB SCH ×2 (06:08→17:13)
[2021-04-28] MEDS: lisinopriL 10 MG TABLET PO SCH (08:04)
[2021-04-28] MEDS: Furosemide 40 MG/4 ML VIAL IVP SCH (08:04)
[2021-04-28] MEDS: amLODIPine 5 MG TABLET PO SCH (08:04)
[2021-04-28] MEDS: Docusate Oral Soln 100 MG/10 ML UDC GTUBE SCH ×2 (08:04→21:42)
[2021-04-28] MEDS: QUEtiapine Fumarate 25 MG TABLET PO SCH ×2 (08:05→21:33)
[2021-04-28] MEDS: Aspirin 81 MG TAB.CHEW PO SCH (08:05)
[2021-04-28] MEDS: Insulin LISPRO 300 UNITS/3 ML VIAL SUBQ SCH ×4 (08:06→21:35)
[2021-04-28] MEDS: Nystatin SUSP 5 ML UD.LIQ PO SCH ×4 (08:06→21:31)
[2021-04-28] MEDS: Nystatin POWDER 30 GM BOTTLE TP SCH ×2 (08:06→21:37)
[2021-04-28] MEDS: Budesonide/Formoterol 160/4.5 1 PUFF INH IH SCH ×2 (08:21→20:21)
[2021-04-28 08:26] LABS: Alanine Aminotransferase 46 Units/L (7-52); Alkaline Phosphatase 132 Units/L (34-104); Aspartate Amino Transferase 31 Units/L (13-39); BUN/Creatinine Ratio 26 (6-26); Bilirubin,Total 0.6 mg/dL (0.3-1.0); Blood Urea Nitrogen 18 mg/dL (6-20); Calcium 8.9 mg/dL (8.6-10.3); Carbon Dioxide 36 mEq/L (23-29); Chloride 106 mEq/L (98-107); Globulin 2.9 g/dL (2.4-3.5); Glucose 70 mg/dL (70-105); Osmolality,Calculated 300 (280-300); Potassium 3.3 mEq/L (3.5-5.1); Sodium 145 mEq/L (136-145); Total Protein 5.9 g/dL (6.4-8.9); eGFR For African Americans > 60 (> 60); eGFR For Non-African Americans > 60 (> 60)
[2021-04-28] MEDS ORDERED: Potassium Chloride Elixir 20 MEQ/15 ML UDC PO ONE (09:55)
[2021-04-28] MEDS: Insulin DETEMIR 100 UNIT/ML X5UNITS SUBQ SCH ×2 (11:16→21:42)
[2021-04-28] MEDS ORDERED: E-Z-PAQUE (BARIUM SULF) SUSP 1 BOTTLE PO ONE (13:31)
[2021-04-28] MEDS ORDERED: E-Z-HD (BARIUM SULF) SUSPENSION PO ONE (13:31)
[2021-04-28] MEDS: Acetaminophen 325 MG TABLET PO PRN (15:38)
[2021-04-29] MEDS: Ipratropium/Albuterol Neb 3 ML IH SCH ×5 (04:15→20:22)
[2021-04-29 04:45] LABS: VBG HCO3 30 mEq/L (21-27); VBG PCO2 32 mmHg (41-51); VBG PH 7.58 pH Units (7.32-7.42); VBG PO2 195 mmHg (25-50)
[2021-04-29 04:45] LABS: Basophils # 0.1 K/mcL (0.0-0.2); Basophils % 0.8 %; Eosinophils # 0.4 K/mcL (0.0-0.6); Eosinophils % 3.7 %; Hematocrit 35.4 % (35.3-44.9); Hemoglobin 11.1 g/dL (11.5-15.4); Immature Granulocytes % 1.5 % (0-4); Lymphocytes # 1.5 K/mcL (0.6-4.6); Mean Corpuscular HGB Conc 31.4 g/dL (31.6-35.5); Mean Corpuscular Hemoglobin 32.2 pg (28.0-33.3); Mean Corpuscular Volume 102.6 fL (83.0-100.0); Mean Platelet Volume 11.7 fL (9.4-12.4); Monocytes # 1.5 K/mcL (0.0-1.3); Monocytes % 14.8 %; Neutrophils # 6.3 K/mcL (1.6-8.9); Platelet Count 209 K/mcL (140-400); Red Blood Count 3.45 M/mcL (3.82-4.97); Red Cell Distribution Width 17.6 % (11.5-14.5); Segmented Neutrophils % 64.2 %; White Blood Count 9.8 K/mcL (4.3-11.1)
[2021-04-29 05:35] LABS: Alanine Aminotransferase 39 Units/L (7-52); Albumin/Globulin Ratio 1.1 (1.1-2.2); Alkaline Phosphatase 153 Units/L (34-104); Aspartate Amino Transferase 28 Units/L (13-39); BUN/Creatinine Ratio 23 (6-26); Bilirubin,Total 0.7 mg/dL (0.3-1.0); Blood Urea Nitrogen 17 mg/dL (6-20); Calcium 8.6 mg/dL (8.6-10.3); Carbon Dioxide 31 mEq/L (23-29); Chloride 103 mEq/L (98-107); Globulin 2.8 g/dL (2.4-3.5); Glucose 136 mg/dL (70-105); Osmolality,Calculated 300 (280-300); Potassium 3.4 mEq/L (3.5-5.1); Sodium 143 mEq/L (136-145); Total Protein 5.8 g/dL (6.4-8.9); eGFR For African Americans > 60 (> 60); eGFR For Non-African Americans > 60 (> 60)
[2021-04-29] MEDS: Cefepime HCl 2,000 MG in 0.9 % Sodium Chloride Mini Bag 100 ML IVPB SCH (06:10)
[2021-04-29] MEDS: *HR* Fondaparinux 2.5 MG/0.5 ML SYRINGE SQ SCH (06:11)
[2021-04-29] MEDS: Budesonide/Formoterol 160/4.5 1 PUFF INH IH SCH ×2 (07:42→20:22)
[2021-04-29] MEDS: Insulin LISPRO 300 UNITS/3 ML VIAL SUBQ SCH ×4 (07:46→21:12)
[2021-04-29] MEDS: Furosemide 40 MG/4 ML VIAL IVP SCH (07:46)
[2021-04-29] MEDS: Nystatin SUSP 5 ML UD.LIQ PO SCH ×2 (07:46→13:18)
[2021-04-29] MEDS: Docusate Oral Soln 100 MG/10 ML UDC GTUBE SCH ×2 (07:47→21:11)
[2021-04-29] MEDS: lisinopriL 10 MG TABLET PO SCH (07:47)
[2021-04-29] MEDS: Aspirin 81 MG TAB.CHEW PO SCH (07:47)
[2021-04-29] MEDS: QUEtiapine Fumarate 25 MG TABLET PO SCH ×2 (07:48→21:11)
[2021-04-29] MEDS: amLODIPine 5 MG TABLET PO SCH (07:48)
[2021-04-29] MEDS: Nystatin POWDER 30 GM BOTTLE TP SCH ×2 (07:49→21:39)
[2021-04-29] MEDS: Insulin DETEMIR 100 UNIT/ML X5UNITS SUBQ SCH ×2 (08:00→21:23)
[2021-04-29] MEDS: Acetaminophen 325 MG TABLET PO PRN (11:55)
[2021-04-30] MEDS: Ipratropium/Albuterol Neb 3 ML IH SCH ×7 (00:22→23:44)
[2021-04-30 01:31] LABS: Basophils # 0.1 K/mcL (0.0-0.2); Basophils % 0.7 %; Eosinophils # 0.3 K/mcL (0.0-0.6); Hematocrit 32.9 % (35.3-44.9); Hemoglobin 10.3 g/dL (11.5-15.4); Immature Granulocytes % 1.5 % (0-4); Lymphocytes # 1.2 K/mcL (0.6-4.6); Lymphocytes % 12.2 %; Mean Corpuscular HGB Conc 31.3 g/dL (31.6-35.5); Mean Corpuscular Hemoglobin 31.8 pg (28.0-33.3); Mean Corpuscular Volume 101.5 fL (83.0-100.0); Mean Platelet Volume 11.5 fL (9.4-12.4); Monocytes # 0.9 K/mcL (0.0-1.3); Monocytes % 8.4 %; Neutrophils # 7.5 K/mcL (1.6-8.9); Platelet Count 191 K/mcL (140-400); Red Blood Count 3.24 M/mcL (3.82-4.97); Red Cell Distribution Width 17.5 % (11.5-14.5); Segmented Neutrophils % 74.2 %; White Blood Count 10.1 K/mcL (4.3-11.1)
[2021-04-30 01:50] LABS: BUN/Creatinine Ratio 21 (6-26); Blood Urea Nitrogen 18 mg/dL (6-20); Calcium 8.3 mg/dL (8.6-10.3); Carbon Dioxide 33 mEq/L (23-29); Chloride 103 mEq/L (98-107); Glucose 97 mg/dL (70-105); Osmolality,Calculated 294 (280-300); Potassium 3.3 mEq/L (3.5-5.1); Sodium 141 mEq/L (136-145); eGFR For African Americans > 60 (> 60); eGFR For Non-African Americans > 60 (> 60)
[2021-04-30] MEDS: *HR* Fondaparinux 2.5 MG/0.5 ML SYRINGE SQ SCH (04:44)
[2021-04-30] MEDS: Budesonide/Formoterol 160/4.5 1 PUFF INH IH SCH ×2 (07:27→20:15)
[2021-04-30] MEDS: Insulin LISPRO 300 UNITS/3 ML VIAL SUBQ SCH ×4 (07:39→21:47)
[2021-04-30] MEDS: lisinopriL 10 MG TABLET PO SCH (08:39)
[2021-04-30] MEDS: Docusate Oral Soln 100 MG/10 ML UDC GTUBE SCH ×2 (08:40→21:46)
[2021-04-30] MEDS: amLODIPine 5 MG TABLET PO SCH (08:40)
[2021-04-30] MEDS: QUEtiapine Fumarate 25 MG TABLET PO SCH ×2 (08:40→21:47)
[2021-04-30] MEDS: Aspirin 81 MG TAB.CHEW PO SCH (08:40)
[2021-04-30] MEDS: Insulin DETEMIR 100 UNIT/ML X5UNITS SUBQ SCH ×2 (08:41→21:47)
[2021-04-30] MEDS: Nystatin POWDER 30 GM BOTTLE TP SCH ×2 (08:42→21:47)
[2021-04-30] MEDS: Furosemide 40 MG/4 ML VIAL IVP SCH (09:46)
[2021-05-01] MEDS: Insulin LISPRO 300 UNITS/3 ML VIAL SUBQ SCH ×5 (01:39→20:59)
[2021-05-01] MEDS: Ipratropium/Albuterol Neb 3 ML IH SCH ×6 (03:36→23:38)
[2021-05-01] MEDS: Budesonide/Formoterol 160/4.5 1 PUFF INH IH SCH ×2 (07:26→20:13)
[2021-05-01] MEDS: *HR* Fondaparinux 2.5 MG/0.5 ML SYRINGE SQ SCH (07:58)
[2021-05-01] MEDS: Docusate Oral Soln 100 MG/10 ML UDC GTUBE SCH ×2 (08:42→21:00)
[2021-05-01] MEDS: Aspirin 81 MG TAB.CHEW PO SCH (08:42)
[2021-05-01] MEDS: Furosemide 40 MG/4 ML VIAL IVP SCH (08:43)
[2021-05-01] MEDS: amLODIPine 5 MG TABLET PO SCH (08:45)
[2021-05-01] MEDS: lisinopriL 10 MG TABLET PO SCH (08:46)
[2021-05-01] MEDS: QUEtiapine Fumarate 25 MG TABLET PO SCH ×2 (08:46→21:00)
[2021-05-01] MEDS: Nystatin POWDER 30 GM BOTTLE TP SCH (08:47)
[2021-05-01] MEDS: Insulin DETEMIR 100 UNIT/ML X5UNITS SUBQ SCH ×2 (10:41→22:02)
[2021-05-01 10:56] LABS: Basophils # 0.1 K/mcL (0.0-0.2); Basophils % 0.7 %; Eosinophils # 0.3 K/mcL (0.0-0.6); Eosinophils % 3.4 %; Hematocrit 33.6 % (35.3-44.9); Hemoglobin 10.2 g/dL (11.5-15.4); Immature Granulocytes % 1.9 % (0-4); Lymphocytes % 10.5 %; Mean Corpuscular HGB Conc 30.4 g/dL (31.6-35.5); Mean Corpuscular Hemoglobin 31.5 pg (28.0-33.3); Mean Corpuscular Volume 103.7 fL (83.0-100.0); Mean Platelet Volume 11.4 fL (9.4-12.4); Monocytes # 0.8 K/mcL (0.0-1.3); Monocytes % 8.2 %; Neutrophils # 7.3 K/mcL (1.6-8.9); Platelet Count 184 K/mcL (140-400); Red Blood Count 3.24 M/mcL (3.82-4.97); Red Cell Distribution Width 17.8 % (11.5-14.5); Segmented Neutrophils % 75.3 %; White Blood Count 9.7 K/mcL (4.3-11.1)
[2021-05-01 11:14] LABS: BUN/Creatinine Ratio 22 (6-26); Blood Urea Nitrogen 19 mg/dL (6-20); Carbon Dioxide 31 mEq/L (23-29); Chloride 99 mEq/L (98-107); Glucose 254 mg/dL (70-105); Osmolality,Calculated 293 (280-300); Potassium 3.7 mEq/L (3.5-5.1); Sodium 136 mEq/L (136-145); eGFR For African Americans > 60 (> 60); eGFR For Non-African Americans > 60 (> 60)
[2021-05-01] MEDS: Acetaminophen 325 MG TABLET PO PRN (12:51)
[2021-05-02] MEDS: Ipratropium/Albuterol Neb 3 ML IH SCH ×6 (04:01→23:14)
[2021-05-02] MEDS: *HR* Fondaparinux 2.5 MG/0.5 ML SYRINGE SQ SCH (06:03)
[2021-05-02 06:53] LABS: Basophils # 0.1 K/mcL (0.0-0.2); Basophils % 0.8 %; Eosinophils # 0.3 K/mcL (0.0-0.6); Eosinophils % 4.3 %; Hematocrit 31.8 % (35.3-44.9); Hemoglobin 9.5 g/dL (11.5-15.4); Immature Granulocytes % 1.8 % (0-4); Lymphocytes # 1.3 K/mcL (0.6-4.6); Lymphocytes % 16.7 %; Mean Corpuscular HGB Conc 29.9 g/dL (31.6-35.5); Mean Corpuscular Hemoglobin 32.2 pg (28.0-33.3); Mean Corpuscular Volume 107.8 fL (83.0-100.0); Mean Platelet Volume 11.4 fL (9.4-12.4); Monocytes # 0.7 K/mcL (0.0-1.3); Monocytes % 8.9 %; Neutrophils # 5.4 K/mcL (1.6-8.9); Platelet Count 152 K/mcL (140-400); Red Blood Count 2.95 M/mcL (3.82-4.97); Red Cell Distribution Width 17.8 % (11.5-14.5); Segmented Neutrophils % 67.5 %
[2021-05-02 07:14] LABS: BUN/Creatinine Ratio 24 (6-26); Blood Urea Nitrogen 22 mg/dL (6-20); Calcium 7.9 mg/dL (8.6-10.3); Carbon Dioxide 31 mEq/L (23-29); Chloride 100 mEq/L (98-107); Glucose 127 mg/dL (70-105); Osmolality,Calculated 285 (280-300); Potassium 3.9 mEq/L (3.5-5.1); Sodium 135 mEq/L (136-145); eGFR For African Americans > 60 (> 60); eGFR For Non-African Americans > 60 (> 60)
[2021-05-02] MEDS: Budesonide/Formoterol 160/4.5 1 PUFF INH IH SCH ×2 (07:16→19:34)
[2021-05-02] MEDS: Nystatin POWDER 30 GM BOTTLE TP SCH ×3 (07:21→21:00)
[2021-05-02] MEDS: Insulin LISPRO 300 UNITS/3 ML VIAL SUBQ SCH ×4 (07:48→21:48)
[2021-05-02] MEDS: lisinopriL 10 MG TABLET PO SCH (08:16)
[2021-05-02] MEDS: Aspirin 81 MG TAB.CHEW PO SCH (08:17)
[2021-05-02] MEDS: Furosemide 40 MG/4 ML VIAL IVP SCH (08:18)
[2021-05-02] MEDS: Insulin DETEMIR 100 UNIT/ML X5UNITS SUBQ SCH ×2 (08:18→21:48)
[2021-05-02] MEDS: amLODIPine 5 MG TABLET PO SCH (08:18)
[2021-05-02] MEDS: Docusate Oral Soln 100 MG/10 ML UDC GTUBE SCH (08:18)
[2021-05-02] MEDS: QUEtiapine Fumarate 25 MG TABLET PO SCH ×2 (08:24→19:48)
[2021-05-02] MEDS: Calcium Gluconate 1gm/50mL 1 GM/50 ML BAG IVPB PRN ×2 (09:48→11:31)
[2021-05-02] MEDS ORDERED: Docusate Oral Soln 100 MG/10 ML UDC PO SCH (21:00)
[2021-05-03] MEDS: Ipratropium/Albuterol Neb 3 ML IH SCH ×6 (03:53→23:38)
[2021-05-03 06:05] LABS: Basophils # 0.1 K/mcL (0.0-0.2); Basophils % 0.9 %; Eosinophils # 0.4 K/mcL (0.0-0.6); Eosinophils % 4.5 %; Hematocrit 29.4 % (35.3-44.9); Hemoglobin 9.5 g/dL (11.5-15.4); Immature Granulocytes % 1.5 % (0-4); Lymphocytes # 1.2 K/mcL (0.6-4.6); Lymphocytes % 15.1 %; Mean Corpuscular HGB Conc 32.3 g/dL (31.6-35.5); Mean Corpuscular Hemoglobin 33.2 pg (28.0-33.3); Mean Corpuscular Volume 102.8 fL (83.0-100.0); Mean Platelet Volume 11.3 fL (9.4-12.4); Monocytes # 0.7 K/mcL (0.0-1.3); Monocytes % 9.4 %; Neutrophils # 5.4 K/mcL (1.6-8.9); Platelet Count 185 K/mcL (140-400); Red Blood Count 2.86 M/mcL (3.82-4.97); Red Cell Distribution Width 17.5 % (11.5-14.5); Segmented Neutrophils % 68.6 %; White Blood Count 7.9 K/mcL (4.3-11.1)
[2021-05-03] MEDS: *HR* Fondaparinux 2.5 MG/0.5 ML SYRINGE SQ SCH (06:18)
[2021-05-03 06:24] LABS: BUN/Creatinine Ratio 26 (6-26); Blood Urea Nitrogen 19 mg/dL (6-20); Calcium 8.6 mg/dL (8.6-10.3); Carbon Dioxide 30 mEq/L (23-29); Chloride 100 mEq/L (98-107); Glucose 155 mg/dL (70-105); Osmolality,Calculated 287 (280-300); Potassium 3.9 mEq/L (3.5-5.1); Sodium 136 mEq/L (136-145); eGFR For African Americans > 60 (> 60); eGFR For Non-African Americans > 60 (> 60)
[2021-05-03] MEDS: Budesonide/Formoterol 160/4.5 1 PUFF INH IH SCH ×2 (07:43→19:52)
[2021-05-03] MEDS: amLODIPine 5 MG TABLET PO SCH ×2 (08:46→08:55)
[2021-05-03] MEDS: lisinopriL 10 MG TABLET PO SCH (08:51)
[2021-05-03] MEDS: Furosemide 40 MG/4 ML VIAL IVP SCH (08:51)
[2021-05-03] MEDS: Aspirin 81 MG TAB.CHEW PO SCH (08:51)
[2021-05-03] MEDS: Insulin LISPRO 300 UNITS/3 ML VIAL SUBQ SCH ×4 (08:54→20:07)
[2021-05-03] MEDS: Nystatin POWDER 30 GM BOTTLE TP SCH ×2 (08:55→20:07)
[2021-05-03] MEDS: QUEtiapine Fumarate 25 MG TABLET PO SCH ×2 (08:56→20:03)
[2021-05-03] MEDS: Insulin DETEMIR 100 UNIT/ML X5UNITS SUBQ SCH ×2 (11:13→20:06)
[2021-05-03] MEDS ORDERED: Oxymetazoline Nasal SPRAY BOTTLE 15ML NS ONE (13:08)
[2021-05-04] MEDS: Ipratropium/Albuterol Neb 3 ML IH SCH ×6 (04:04→23:35)
[2021-05-04] MEDS: *HR* Fondaparinux 2.5 MG/0.5 ML SYRINGE SQ SCH (06:34)
[2021-05-04 06:45] LABS: BUN/Creatinine Ratio 31 (6-26); Blood Urea Nitrogen 21 mg/dL (6-20); Calcium 8.5 mg/dL (8.6-10.3); Carbon Dioxide 30 mEq/L (23-29); Chloride 103 mEq/L (98-107); Glucose 212 mg/dL (70-105); Magnesium 1.5 mg/dL (1.6-2.6); Osmolality,Calculated 281 (280-300); Potassium 4.4 mEq/L (3.5-5.1); Sodium 131 mEq/L (136-145); eGFR For African Americans > 60 (> 60); eGFR For Non-African Americans > 60 (> 60)
[2021-05-04] MEDS: Furosemide 40 MG TABLET PO SCH (07:59)
[2021-05-04] MEDS: QUEtiapine Fumarate 25 MG TABLET PO SCH ×2 (07:59→20:38)
[2021-05-04] MEDS: lisinopriL 10 MG TABLET PO SCH (08:00)
[2021-05-04] MEDS: amLODIPine 5 MG TABLET PO SCH (08:00)
[2021-05-04] MEDS: Insulin LISPRO 300 UNITS/3 ML VIAL SUBQ SCH ×4 (08:01→20:40)
[2021-05-04] MEDS: Nystatin POWDER 30 GM BOTTLE TP SCH ×2 (08:01→23:19)
[2021-05-04] MEDS: Budesonide/Formoterol 160/4.5 1 PUFF INH IH SCH ×2 (08:07→19:44)
[2021-05-04] MEDS: Insulin DETEMIR 100 UNIT/ML X5UNITS SUBQ SCH ×2 (08:28→20:39)
[2021-05-04 09:43] LABS: Basophils # 0.1 K/mcL (0.0-0.2); Basophils % 0.6 %; Eosinophils # 0.4 K/mcL (0.0-0.6); Eosinophils % 4.5 %; Hematocrit 29.1 % (35.3-44.9); Immature Granulocytes % 1.6 % (0-4); Mean Corpuscular HGB Conc 30.9 g/dL (31.6-35.5); Mean Corpuscular Hemoglobin 31.7 pg (28.0-33.3); Mean Corpuscular Volume 102.5 fL (83.0-100.0); Mean Platelet Volume 11.5 fL (9.4-12.4); Monocytes # 0.9 K/mcL (0.0-1.3); Monocytes % 10.7 %; Neutrophils # 5.7 K/mcL (1.6-8.9); Platelet Count 199 K/mcL (140-400); Red Blood Count 2.84 M/mcL (3.82-4.97); Red Cell Distribution Width 17.5 % (11.5-14.5); Segmented Neutrophils % 70.6 %; White Blood Count 8.1 K/mcL (4.3-11.1)
[2021-05-04 09:51] LABS: INR 1.3
[2021-05-04] MEDS: Aspirin 81 MG TAB.CHEW PO SCH (10:24)
[2021-05-05] MEDS: Ipratropium/Albuterol Neb 3 ML IH SCH ×6 (04:01→23:50)
[2021-05-05] MEDS: *HR* Fondaparinux 2.5 MG/0.5 ML SYRINGE SQ SCH (05:09)
[2021-05-05] MEDS: Budesonide/Formoterol 160/4.5 1 PUFF INH IH SCH ×2 (07:33→19:46)
[2021-05-05] MEDS: Aspirin 81 MG TAB.CHEW PO SCH (08:27)
[2021-05-05] MEDS: lisinopriL 10 MG TABLET PO SCH (08:27)
[2021-05-05] MEDS: Insulin LISPRO 300 UNITS/3 ML VIAL SUBQ SCH ×4 (08:29→19:48)
[2021-05-05] MEDS: QUEtiapine Fumarate 25 MG TABLET PO SCH ×2 (08:29→19:47)
[2021-05-05] MEDS: Furosemide 40 MG TABLET PO SCH (08:29)
[2021-05-05] MEDS: amLODIPine 5 MG TABLET PO SCH (08:29)
[2021-05-05] MEDS: Nystatin POWDER 30 GM BOTTLE TP SCH ×2 (08:36→19:48)
[2021-05-05] MEDS: Acetaminophen 325 MG TABLET PO PRN ×2 (08:41→19:46)
[2021-05-05] MEDS: Insulin DETEMIR 100 UNIT/ML X5UNITS SUBQ SCH ×2 (08:41→19:50)
[2021-05-05] MEDS ORDERED: 0.9 % Sodium Chloride 1,000 ML IVC SCH (11:30)
[2021-05-05 12:22] LABS: Basophils # 0.1 K/mcL (0.0-0.2); Basophils % 0.7 %; Eosinophils # 0.4 K/mcL (0.0-0.6); Eosinophils % 5.2 %; Hematocrit 27.5 % (35.3-44.9); Hemoglobin 8.5 g/dL (11.5-15.4); Immature Granulocytes % 1.3 % (0-4); Lymphocytes # 0.9 K/mcL (0.6-4.6); Lymphocytes % 11.9 %; Mean Corpuscular HGB Conc 30.9 g/dL (31.6-35.5); Mean Corpuscular Hemoglobin 32.2 pg (28.0-33.3); Mean Corpuscular Volume 104.2 fL (83.0-100.0); Mean Platelet Volume 11.3 fL (9.4-12.4); Monocytes # 0.7 K/mcL (0.0-1.3); Monocytes % 9.2 %; Neutrophils # 5.4 K/mcL (1.6-8.9); Platelet Count 183 K/mcL (140-400); Red Blood Count 2.64 M/mcL (3.82-4.97); Red Cell Distribution Width 17.7 % (11.5-14.5); Segmented Neutrophils % 71.7 %; White Blood Count 7.5 K/mcL (4.3-11.1)
[2021-05-05 12:42] LABS: BUN/Creatinine Ratio 23 (6-26); Blood Urea Nitrogen 20 mg/dL (6-20); Carbon Dioxide 32 mEq/L (23-29); Chloride 98 mEq/L (98-107); Sodium 135 mEq/L (136-145); eGFR For African Americans > 60 (> 60)
[2021-05-05 12:43] LABS: Alanine Aminotransferase 20 Units/L (7-52); Albumin 2.9 g/dL (3.5-5.7); Albumin/Globulin Ratio 1.1 (1.1-2.2); Alkaline Phosphatase 166 Units/L (34-104); Aspartate Amino Transferase 16 Units/L (13-39); Bilirubin,Direct 0.1 mg/dL (0.0-0.2); Bilirubin,Indirect 0.3 mg/dL (0.0-1.0); Bilirubin,Total 0.4 mg/dL (0.3-1.0); Calcium 8.3 mg/dL (8.6-10.3); Globulin 2.7 g/dL (2.4-3.5); Glucose 277 mg/dL (70-105); Osmolality,Calculated 293 (280-300); Total Protein 5.6 g/dL (6.4-8.9); eGFR For Non-African Americans > 60 (> 60)
[2021-05-05 12:55] LABS: Thyroid Stimulating Hormone 4.065 mcIU/mL (0.340-5.600)
[2021-05-06] MEDS: Ipratropium/Albuterol Neb 3 ML IH SCH ×4 (03:40→15:34)
[2021-05-06] MEDS: *HR* Fondaparinux 2.5 MG/0.5 ML SYRINGE SQ SCH (05:47)
[2021-05-06] MEDS: Budesonide/Formoterol 160/4.5 1 PUFF INH IH SCH (07:28)
[2021-05-06] MEDS: Insulin LISPRO 300 UNITS/3 ML VIAL SUBQ SCH ×3 (08:15→17:46)
[2021-05-06] MEDS: Nystatin POWDER 30 GM BOTTLE TP SCH (08:16)
[2021-05-06] MEDS: Insulin DETEMIR 100 UNIT/ML X5UNITS SUBQ SCH (08:16)
[2021-05-06] MEDS: QUEtiapine Fumarate 25 MG TABLET PO SCH (08:17)
[2021-05-06] MEDS: Aspirin 81 MG TAB.CHEW PO SCH (08:17)
[2021-05-06] MEDS ORDERED: polyethylene glycoL 3350 17 GM POWD.PACK PO PRN (09:41)
[2021-05-06] MEDS: Acetaminophen 325 MG TABLET PO PRN (10:05)
[2021-05-06] MEDS: Furosemide 40 MG TABLET PO SCH (10:06)
[2021-05-06 15:25] LABS: Adenovirus Not Detected (Not Detect); Bordetella Pertussis Not Detected (Not Detect); Chlamydophila pneumoniae Not Detected (Not Detect); Coronavirus 229E Not Detected (Not Detect); Coronavirus HKU1 Not Detected (Not Detect); Coronavirus NL63 Not Detected (Not Detect); Coronavirus OC43 Not Detected (Not Detect); Human Metapneumovirus Not Detected (Not Detect); Human Rhinovirus/Enterovirus Not Detected (Not Detect); Influenza A Subtype 2009 H1 Not Detected (Not Detect); Influenza B Not Detected (Not Detect); Parainfluenza Virus 1 Not Detected (Not Detect); Parainfluenza Virus 2 Not Detected (Not Detect); Parainfluenza Virus 3 Not Detected (Not Detect); Parainfluenza Virus 4 Not Detected (Not Detect); Respiratory Syncytial Virus Not Detected (Not Detect); SARS-CoV-2 Not Detected (Not Detect)
[2021-05-06 15:26] LABS: Mycoplasma pneumoniae Not Detected (Not Detect)
[2021-05-06 16:09] VITALS: BP 138/79; TEMP 98.4; O2SAT 95
[2021-05-06 17:36] VITALS: PULSE 77
== END 2021-05-06 18:29 | DRG 166 ==
LOC: EMEROOARM 11:46 → 2ANU 11:46 → SUATTDRO 04-02 15:19 → ICNU 04-11 15:50 → 2NNU 04-21 11:45
PROVIDERS: ADMIT Internal Medicine; ATTEND Student in an Organized Health Care Education/Training Program

== ENCOUNTER 2021-05-08 19:21 | Inpatient (IN) ==
[2021-05-08] MEDS ORDERED: Ondansetron 4 MG/2 ML VIAL IVP PRN (23:56)
[2021-05-09 01:24] LABS: Basophils # 0.1 K/mcL (0.0-0.2); Basophils % 0.7 %; Eosinophils # 0.5 K/mcL (0.0-0.6); Eosinophils % 6.4 %; Hematocrit 30.5 % (35.3-44.9); Hemoglobin 9.5 g/dL (11.5-15.4); Immature Granulocytes % 1.4 % (0-4); Lymphocytes % 13.9 %; Mean Corpuscular HGB Conc 31.1 g/dL (31.6-35.5); Mean Corpuscular Hemoglobin 32.9 pg (28.0-33.3); Mean Corpuscular Volume 105.5 fL (83.0-100.0); Mean Platelet Volume 10.6 fL (9.4-12.4); Monocytes # 0.6 K/mcL (0.0-1.3); Monocytes % 8.8 %; Neutrophils # 4.9 K/mcL (1.6-8.9); Platelet Count 246 K/mcL (140-400); Red Blood Count 2.89 M/mcL (3.82-4.97); Segmented Neutrophils % 68.8 %; White Blood Count 7.1 K/mcL (4.3-11.1)
[2021-05-09 01:35] LABS: INR 1.2; Prothrombin Time 13.8 Seconds (9.4-12.1)
[2021-05-09 02:13] LABS: Alanine Aminotransferase 18 Units/L (7-52); Albumin 3.3 g/dL (3.5-5.7); Albumin/Globulin Ratio 0.9 (1.1-2.2); Alkaline Phosphatase 193 Units/L (34-104); Aspartate Amino Transferase 21 Units/L (13-39); BUN/Creatinine Ratio 13 (6-26); Bilirubin,Total 0.4 mg/dL (0.3-1.0); Blood Urea Nitrogen 9 mg/dL (6-20); Calcium 8.9 mg/dL (8.6-10.3); Carbon Dioxide 30 mEq/L (23-29); Chloride 98 mEq/L (98-107); Globulin 3.6 g/dL (2.4-3.5); Glucose 223 mg/dL (70-105); Magnesium 1.8 mg/dL (1.6-2.6); Osmolality,Calculated 292 (280-300); Phosphorous 3.3 mg/dL (2.7-4.5); Potassium 3.7 mEq/L (3.5-5.1); Sodium 138 mEq/L (136-145); Total Protein 6.9 g/dL (6.4-8.9); Troponin I < 0.03 ng/mL (< 0.04); eGFR For African Americans > 60 (> 60); eGFR For Non-African Americans > 60 (> 60)
[2021-05-09] MEDS ORDERED: D5% in Water 1,000 ML IVC PRN (02:52)
[2021-05-09] MEDS ORDERED: *HR* Dextrose 50 % in Water (Syg) 50 ML SYRINGE IVP PRN (02:52)
[2021-05-09] MEDS ORDERED: Dextrose 4 GM Chewable Tablets PO PRN ×2 (02:52)
[2021-05-09] MEDS: Insulin LISPRO 300 UNITS/3 ML VIAL SUBQ SCH ×3 (05:36→17:38)
[2021-05-09] MEDS ORDERED: Perflutren Lipid Microsphere 1.3 ML in 0.9 % Sodium Chloride 8.7 ML IVP PRN (06:33)
[2021-05-09] MEDS: Furosemide 40 MG/4 ML VIAL IVP SCH (08:40)
[2021-05-09] MEDS: *HR* Heparin 5,000 UNIT/ML VIAL SQ SCH (17:38)
[2021-05-09] MEDS ORDERED: Mag Hydrox/Al Hydrox/Simeth 30 ML UDC PO PRN (19:13)
[2021-05-09] MEDS: Melatonin 3 MG TABLET PO PRN (22:03)
[2021-05-09] MEDS: QUEtiapine Fumarate 25 MG TABLET PO SCH (22:03)
[2021-05-09] MEDS: Sucralfate 1 GM TABLET PO SCH (22:04)
[2021-05-10] MEDS: Insulin LISPRO 300 UNITS/3 ML VIAL SUBQ SCH ×4 (01:00→17:36)
[2021-05-10] MEDS ORDERED: Furosemide 20 MG/2 ML VIAL IVP ONE (05:27)
[2021-05-10] MEDS: *HR* Heparin 5,000 UNIT/ML VIAL SQ SCH ×2 (05:48→16:48)
[2021-05-10] MEDS: amLODIPine 5 MG TABLET PO SCH (08:18)
[2021-05-10] MEDS: Aspirin Enteric Coated 81 MG Tablet PO SCH (08:19)
[2021-05-10] MEDS: Sucralfate 1 GM TABLET PO SCH ×2 (08:19→22:19)
[2021-05-10] MEDS: lisinopriL 10 MG TABLET PO SCH (08:19)
[2021-05-10] MEDS: Furosemide 40 MG/4 ML VIAL IVP SCH (08:20)
[2021-05-10] MEDS: QUEtiapine Fumarate 25 MG TABLET PO SCH (22:27)
[2021-05-11] MEDS: Insulin LISPRO 300 UNITS/3 ML VIAL SUBQ SCH ×4 (02:19→17:49)
[2021-05-11 03:11] LABS: Basophils # 0.1 K/mcL (0.0-0.2); Basophils % 0.7 %; Eosinophils # 0.5 K/mcL (0.0-0.6); Eosinophils % 6.7 %; Hemoglobin 8.9 g/dL (11.5-15.4); Immature Granulocytes % 1.3 % (0-4); Lymphocytes # 1.5 K/mcL (0.6-4.6); Lymphocytes % 19.7 %; Mean Corpuscular HGB Conc 30.7 g/dL (31.6-35.5); Mean Corpuscular Hemoglobin 31.9 pg (28.0-33.3); Mean Corpuscular Volume 103.9 fL (83.0-100.0); Mean Platelet Volume 10.4 fL (9.4-12.4); Monocytes # 0.7 K/mcL (0.0-1.3); Monocytes % 9.8 %; Neutrophils # 4.6 K/mcL (1.6-8.9); Platelet Count 253 K/mcL (140-400); Red Blood Count 2.79 M/mcL (3.82-4.97); Red Cell Distribution Width 17.1 % (11.5-14.5); Segmented Neutrophils % 61.8 %; White Blood Count 7.5 K/mcL (4.3-11.1)
[2021-05-11 03:24] LABS: BUN/Creatinine Ratio 16 (6-26); Blood Urea Nitrogen 15 mg/dL (6-20); Calcium 8.5 mg/dL (8.6-10.3); Carbon Dioxide 31 mEq/L (23-29); Chloride 97 mEq/L (98-107); Glucose 205 mg/dL (70-105); Osmolality,Calculated 289 (280-300); Potassium 3.8 mEq/L (3.5-5.1); Sodium 136 mEq/L (136-145); eGFR For African Americans > 60 (> 60); eGFR For Non-African Americans 59 (> 60)
[2021-05-11] MEDS: *HR* Heparin 5,000 UNIT/ML VIAL SQ SCH ×3 (06:16→22:09)
[2021-05-11] MEDS: Aspirin Enteric Coated 81 MG Tablet PO SCH (08:38)
[2021-05-11] MEDS: lisinopriL 10 MG TABLET PO SCH (08:38)
[2021-05-11] MEDS: amLODIPine 5 MG TABLET PO SCH (08:38)
[2021-05-11] MEDS: Sucralfate 1 GM TABLET PO SCH ×2 (08:39→20:08)
[2021-05-11] MEDS: Furosemide 40 MG/4 ML VIAL IVP SCH ×2 (08:39→20:06)
[2021-05-11] MEDS: QUEtiapine Fumarate 25 MG TABLET PO SCH (20:08)
[2021-05-12] MEDS: Insulin LISPRO 300 UNITS/3 ML VIAL SUBQ SCH ×4 (00:18→18:18)
[2021-05-12 03:47] LABS: Basophils # 0.1 K/mcL (0.0-0.2); Basophils % 0.8 %; Eosinophils # 0.4 K/mcL (0.0-0.6); Eosinophils % 5.6 %; Hematocrit 27.6 % (35.3-44.9); Hemoglobin 8.5 g/dL (11.5-15.4); Immature Granulocytes % 1.3 % (0-4); Lymphocytes # 1.6 K/mcL (0.6-4.6); Lymphocytes % 24.9 %; Mean Corpuscular HGB Conc 30.8 g/dL (31.6-35.5); Mean Corpuscular Hemoglobin 32.6 pg (28.0-33.3); Mean Corpuscular Volume 105.7 fL (83.0-100.0); Mean Platelet Volume 10.6 fL (9.4-12.4); Monocytes # 0.6 K/mcL (0.0-1.3); Monocytes % 8.9 %; Neutrophils # 3.7 K/mcL (1.6-8.9); Platelet Count 250 K/mcL (140-400); Red Blood Count 2.61 M/mcL (3.82-4.97); Red Cell Distribution Width 16.8 % (11.5-14.5); Segmented Neutrophils % 58.5 %; White Blood Count 6.4 K/mcL (4.3-11.1)
[2021-05-12 04:04] LABS: BUN/Creatinine Ratio 26 (6-26); Blood Urea Nitrogen 24 mg/dL (6-20); Calcium 8.7 mg/dL (8.6-10.3); Carbon Dioxide 34 mEq/L (23-29); Chloride 97 mEq/L (98-107); Glucose 202 mg/dL (70-105); Osmolality,Calculated 296 (280-300); Potassium 3.8 mEq/L (3.5-5.1); Sodium 138 mEq/L (136-145); eGFR For African Americans > 60 (> 60); eGFR For Non-African Americans > 60 (> 60)
[2021-05-12] MEDS: *HR* Heparin 5,000 UNIT/ML VIAL SQ SCH ×3 (05:24→20:50)
[2021-05-12] MEDS: Aspirin Enteric Coated 81 MG Tablet PO SCH (08:15)
[2021-05-12] MEDS: Sucralfate 1 GM TABLET PO SCH ×2 (08:16→20:50)
[2021-05-12] MEDS: amLODIPine 5 MG TABLET PO SCH (08:16)
[2021-05-12] MEDS: lisinopriL 10 MG TABLET PO SCH (08:16)
[2021-05-12] MEDS: Furosemide 40 MG/4 ML VIAL IVP SCH ×2 (08:16→20:48)
[2021-05-12] MEDS: QUEtiapine Fumarate 25 MG TABLET PO SCH (20:48)
[2021-05-12] MEDS: Melatonin 3 MG TABLET PO PRN (20:53)
[2021-05-12] MEDS ORDERED: Insulin DETEMIR 100 UNIT/ML X5UNITS SUBQ SCH (21:00)
[2021-05-13] MEDS: Insulin LISPRO 300 UNITS/3 ML VIAL SUBQ SCH ×5 (00:30→22:26)
[2021-05-13 01:54] LABS: Basophils % 0.4 %; Eosinophils # 0.3 K/mcL (0.0-0.6); Eosinophils % 4.3 %; Hematocrit 28.5 % (35.3-44.9); Hemoglobin 8.8 g/dL (11.5-15.4); Immature Granulocytes % 1.5 % (0-4); Lymphocytes # 1.2 K/mcL (0.6-4.6); Lymphocytes % 17.1 %; Mean Corpuscular HGB Conc 30.9 g/dL (31.6-35.5); Mean Corpuscular Hemoglobin 32.7 pg (28.0-33.3); Mean Corpuscular Volume 105.9 fL (83.0-100.0); Mean Platelet Volume 10.6 fL (9.4-12.4); Monocytes # 0.5 K/mcL (0.0-1.3); Monocytes % 7.5 %; Neutrophils # 4.7 K/mcL (1.6-8.9); Platelet Count 239 K/mcL (140-400); Red Blood Count 2.69 M/mcL (3.82-4.97); Red Cell Distribution Width 16.8 % (11.5-14.5); Segmented Neutrophils % 69.2 %; White Blood Count 6.8 K/mcL (4.3-11.1)
[2021-05-13 02:12] LABS: BUN/Creatinine Ratio 26 (6-26); Blood Urea Nitrogen 24 mg/dL (6-20); Calcium 8.7 mg/dL (8.6-10.3); Carbon Dioxide 34 mEq/L (23-29); Chloride 94 mEq/L (98-107); Glucose 326 mg/dL (70-105); Osmolality,Calculated 299 (280-300); Potassium 3.8 mEq/L (3.5-5.1); Sodium 136 mEq/L (136-145); eGFR For African Americans > 60 (> 60); eGFR For Non-African Americans > 60 (> 60)
[2021-05-13] MEDS: *HR* Heparin 5,000 UNIT/ML VIAL SQ SCH ×3 (06:03→20:40)
[2021-05-13] MEDS: Furosemide 40 MG/4 ML VIAL IVP SCH ×2 (08:03→20:40)
[2021-05-13] MEDS: lisinopriL 10 MG TABLET PO SCH (08:04)
[2021-05-13] MEDS: Sucralfate 1 GM TABLET PO SCH ×2 (08:04→20:29)
[2021-05-13] MEDS: Aspirin Enteric Coated 81 MG Tablet PO SCH (08:04)
[2021-05-13] MEDS: amLODIPine 5 MG TABLET PO SCH (08:04)
[2021-05-13] MEDS: QUEtiapine Fumarate 25 MG TABLET PO SCH (20:36)
[2021-05-13] MEDS: *HR* OxyCODONE Immed Rel 5 MG TABLET PO PRN (20:38)
[2021-05-13] MEDS ORDERED: Insulin DETEMIR 100 UNIT/ML X5UNITS SUBQ SCH (21:00)
[2021-05-14 04:22] LABS: Basophils # 0.1 K/mcL (0.0-0.2); Basophils % 0.9 %; Eosinophils # 0.4 K/mcL (0.0-0.6); Eosinophils % 4.7 %; Hematocrit 29.2 % (35.3-44.9); Hemoglobin 8.8 g/dL (11.5-15.4); Immature Granulocytes % 1.2 % (0-4); Lymphocytes # 1.2 K/mcL (0.6-4.6); Lymphocytes % 16.4 %; Mean Corpuscular HGB Conc 30.1 g/dL (31.6-35.5); Mean Corpuscular Hemoglobin 31.8 pg (28.0-33.3); Mean Corpuscular Volume 105.4 fL (83.0-100.0); Mean Platelet Volume 10.6 fL (9.4-12.4); Monocytes # 0.6 K/mcL (0.0-1.3); Monocytes % 7.6 %; Neutrophils # 5.2 K/mcL (1.6-8.9); Platelet Count 252 K/mcL (140-400); Red Blood Count 2.77 M/mcL (3.82-4.97); Red Cell Distribution Width 16.7 % (11.5-14.5); Segmented Neutrophils % 69.2 %; White Blood Count 7.5 K/mcL (4.3-11.1)
[2021-05-14 04:40] LABS: BUN/Creatinine Ratio 28 (6-26); Blood Urea Nitrogen 21 mg/dL (6-20); Calcium 8.6 mg/dL (8.6-10.3); Carbon Dioxide 39 mEq/L (23-29); Chloride 95 mEq/L (98-107); Glucose 173 mg/dL (70-105); Magnesium 1.4 mg/dL (1.6-2.6); Osmolality,Calculated 297 (280-300); Potassium 3.5 mEq/L (3.5-5.1); Sodium 140 mEq/L (136-145); eGFR For African Americans > 60 (> 60); eGFR For Non-African Americans > 60 (> 60)
[2021-05-14] MEDS: *HR* Heparin 5,000 UNIT/ML VIAL SQ SCH ×3 (05:41→23:37)
[2021-05-14] MEDS: Insulin LISPRO 300 UNITS/3 ML VIAL SUBQ SCH ×4 (07:39→20:25)
[2021-05-14] MEDS: Furosemide 40 MG/4 ML VIAL IVP SCH (07:49)
[2021-05-14] MEDS: Aspirin Enteric Coated 81 MG Tablet PO SCH (07:49)
[2021-05-14] MEDS: lisinopriL 10 MG TABLET PO SCH (07:49)
[2021-05-14] MEDS: Sucralfate 1 GM TABLET PO SCH ×2 (07:49→20:24)
[2021-05-14] MEDS: amLODIPine 5 MG TABLET PO SCH (07:49)
[2021-05-14] MEDS ORDERED: Furosemide 40 MG TABLET PO SCH (17:00)
[2021-05-14] MEDS ORDERED: Bumetanide 1 MG/4 ML VIAL IVP ONE (17:11)
[2021-05-14] MEDS: Magnesium Oxide 400 MG TABLET PO SCH (20:24)
[2021-05-14] MEDS: Insulin DETEMIR 100 UNIT/ML X5UNITS SUBQ SCH (20:25)
[2021-05-14] MEDS: QUEtiapine Fumarate 25 MG TABLET PO SCH (20:25)
[2021-05-14] MEDS: *HR* OxyCODONE Immed Rel 5 MG TABLET PO PRN (20:29)
[2021-05-14] MEDS ORDERED: Ipratropium/Albuterol Neb 3 ML IH PRN (20:45)
[2021-05-15] MEDS: *HR* Heparin 5,000 UNIT/ML VIAL SQ SCH ×3 (05:52→21:00)
[2021-05-15 06:09] LABS: Basophils # 0.1 K/mcL (0.0-0.2); Basophils % 0.8 %; Eosinophils # 0.3 K/mcL (0.0-0.6); Hematocrit 32.2 % (35.3-44.9); Hemoglobin 9.8 g/dL (11.5-15.4); Immature Granulocytes % 1.7 % (0-4); Lymphocytes # 1.1 K/mcL (0.6-4.6); Lymphocytes % 16.5 %; Mean Corpuscular HGB Conc 30.4 g/dL (31.6-35.5); Mean Corpuscular Hemoglobin 32.3 pg (28.0-33.3); Mean Corpuscular Volume 106.3 fL (83.0-100.0); Mean Platelet Volume 10.1 fL (9.4-12.4); Monocytes # 0.7 K/mcL (0.0-1.3); Monocytes % 9.9 %; Neutrophils # 4.4 K/mcL (1.6-8.9); Platelet Count 251 K/mcL (140-400); Red Blood Count 3.03 M/mcL (3.82-4.97); Red Cell Distribution Width 16.7 % (11.5-14.5); Segmented Neutrophils % 67.1 %; White Blood Count 6.5 K/mcL (4.3-11.1)
[2021-05-15 06:29] LABS: BUN/Creatinine Ratio 25 (6-26); Blood Urea Nitrogen 17 mg/dL (6-20); Calcium 9.1 mg/dL (8.6-10.3); Carbon Dioxide 37 mEq/L (23-29); Chloride 94 mEq/L (98-107); Glucose 167 mg/dL (70-105); Magnesium 1.8 mg/dL (1.6-2.6); Osmolality,Calculated 291 (280-300); Potassium 3.5 mEq/L (3.5-5.1); Sodium 138 mEq/L (136-145); eGFR For African Americans > 60 (> 60); eGFR For Non-African Americans > 60 (> 60)
[2021-05-15] MEDS: Insulin LISPRO 300 UNITS/3 ML VIAL SUBQ SCH ×4 (08:11→19:55)
[2021-05-15] MEDS: Aspirin Enteric Coated 81 MG Tablet PO SCH (08:12)
[2021-05-15] MEDS: Magnesium Oxide 400 MG TABLET PO SCH (08:14)
[2021-05-15] MEDS: amLODIPine 5 MG TABLET PO SCH (08:14)
[2021-05-15] MEDS: Sucralfate 1 GM TABLET PO SCH ×2 (08:15→19:54)
[2021-05-15] MEDS: lisinopriL 10 MG TABLET PO SCH (08:21)
[2021-05-15] MEDS ORDERED: Bumetanide 1 MG/4 ML VIAL IVP ONE ×2 (09:32→15:14)
[2021-05-15] MEDS: QUEtiapine Fumarate 25 MG TABLET PO SCH (19:54)
[2021-05-15] MEDS: *HR* OxyCODONE Immed Rel 5 MG TABLET PO PRN (19:54)
[2021-05-15] MEDS: Insulin DETEMIR 100 UNIT/ML X5UNITS SUBQ SCH (19:55)
[2021-05-16] MEDS: *HR* OxyCODONE Immed Rel 5 MG TABLET PO PRN (02:23)
[2021-05-16] MEDS: *HR* Heparin 5,000 UNIT/ML VIAL SQ SCH ×3 (06:08→22:11)
[2021-05-16 06:19] LABS: Basophils # 0.1 K/mcL (0.0-0.2); Basophils % 0.8 %; Eosinophils # 0.3 K/mcL (0.0-0.6); Eosinophils % 4.1 %; Hematocrit 31.9 % (35.3-44.9); Hemoglobin 9.6 g/dL (11.5-15.4); Immature Granulocytes % 1.5 % (0-4); Lymphocytes # 1.2 K/mcL (0.6-4.6); Lymphocytes % 16.1 %; Mean Corpuscular HGB Conc 30.1 g/dL (31.6-35.5); Mean Corpuscular Volume 106.3 fL (83.0-100.0); Mean Platelet Volume 10.4 fL (9.4-12.4); Monocytes # 0.6 K/mcL (0.0-1.3); Monocytes % 8.8 %; Platelet Count 254 K/mcL (140-400); Red Cell Distribution Width 16.5 % (11.5-14.5); Segmented Neutrophils % 68.7 %; White Blood Count 7.3 K/mcL (4.3-11.1)
[2021-05-16 06:38] LABS: BUN/Creatinine Ratio 27 (6-26); Blood Urea Nitrogen 21 mg/dL (6-20); Calcium 9.2 mg/dL (8.6-10.3); Carbon Dioxide 37 mEq/L (23-29); Chloride 94 mEq/L (98-107); Glucose 184 mg/dL (70-105); Osmolality,Calculated 292 (280-300); Potassium 3.7 mEq/L (3.5-5.1); Sodium 137 mEq/L (136-145); eGFR For African Americans > 60 (> 60); eGFR For Non-African Americans > 60 (> 60)
[2021-05-16] MEDS: Aspirin Enteric Coated 81 MG Tablet PO SCH (08:35)
[2021-05-16] MEDS: lisinopriL 10 MG TABLET PO SCH (08:35)
[2021-05-16] MEDS: Sucralfate 1 GM TABLET PO SCH ×2 (08:36→19:47)
[2021-05-16] MEDS: Insulin LISPRO 300 UNITS/3 ML VIAL SUBQ SCH ×4 (08:37→19:49)
[2021-05-16] MEDS ORDERED: Nitroglycerin 0.4 MG TAB.SUBL SL PRN (08:55)
[2021-05-16] MEDS: Bumetanide 1 MG/4 ML VIAL IVP SCH ×2 (09:15→17:48)
[2021-05-16] MEDS: QUEtiapine Fumarate 25 MG TABLET PO SCH (19:47)
[2021-05-16] MEDS: Insulin DETEMIR 100 UNIT/ML X5UNITS SUBQ SCH (19:51)
[2021-05-17] MEDS: *HR* OxyCODONE Immed Rel 5 MG TABLET PO PRN (01:42)
[2021-05-17 05:41] LABS: Basophils % 0.5 %; Eosinophils # 0.3 K/mcL (0.0-0.6); Eosinophils % 3.3 %; Hematocrit 31.3 % (35.3-44.9); Hemoglobin 9.7 g/dL (11.5-15.4); Lymphocytes # 1.1 K/mcL (0.6-4.6); Lymphocytes % 13.7 %; Mean Corpuscular Hemoglobin 31.9 pg (28.0-33.3); Mean Platelet Volume 10.2 fL (9.4-12.4); Monocytes # 0.7 K/mcL (0.0-1.3); Monocytes % 9.4 %; Neutrophils # 5.5 K/mcL (1.6-8.9); Platelet Count 250 K/mcL (140-400); Red Blood Count 3.04 M/mcL (3.82-4.97); Red Cell Distribution Width 16.4 % (11.5-14.5); Segmented Neutrophils % 72.1 %; White Blood Count 7.7 K/mcL (4.3-11.1)
[2021-05-17] MEDS: *HR* Heparin 5,000 UNIT/ML VIAL SQ SCH ×2 (06:17→12:31)
[2021-05-17 07:06] LABS: BUN/Creatinine Ratio 23 (6-26); Blood Urea Nitrogen 17 mg/dL (6-20); Calcium 9.5 mg/dL (8.6-10.3); Carbon Dioxide 39 mEq/L (23-29); Chloride 92 mEq/L (98-107); Glucose 197 mg/dL (70-105); Magnesium 1.8 mg/dL (1.6-2.6); Osmolality,Calculated 293 (280-300); Potassium 3.7 mEq/L (3.5-5.1); Sodium 138 mEq/L (136-145); eGFR For African Americans > 60 (> 60); eGFR For Non-African Americans > 60 (> 60)
[2021-05-17] MEDS: Bumetanide 1 MG/4 ML VIAL IVP SCH ×2 (08:39→16:38)
[2021-05-17] MEDS: Sucralfate 1 GM TABLET PO SCH ×2 (08:39→20:41)
[2021-05-17] MEDS: Aspirin Enteric Coated 81 MG Tablet PO SCH (08:39)
[2021-05-17] MEDS: Insulin LISPRO 300 UNITS/3 ML VIAL SUBQ SCH ×4 (08:43→20:42)
[2021-05-17] MEDS: lisinopriL 10 MG TABLET PO SCH (08:49)
[2021-05-17] MEDS ORDERED: Saline Nasal Spray 44 ML BOTTLE NS PRN (15:19)
[2021-05-17] MEDS: Oxymetazoline Nasal SPRAY BOTTLE 15ML NS SCH (16:52)
[2021-05-17] MEDS: QUEtiapine Fumarate 25 MG TABLET PO SCH (20:41)
[2021-05-17] MEDS: Insulin DETEMIR 100 UNIT/ML X5UNITS SUBQ SCH (20:42)
[2021-05-18] MEDS: Oxymetazoline Nasal SPRAY BOTTLE 15ML NS SCH ×2 (05:36→16:47)
[2021-05-18 06:47] LABS: BUN/Creatinine Ratio 26 (6-26); Blood Urea Nitrogen 20 mg/dL (6-20); Calcium 9.1 mg/dL (8.6-10.3); Carbon Dioxide 39 mEq/L (23-29); Chloride 93 mEq/L (98-107); Glucose 283 mg/dL (70-105); Magnesium 1.6 mg/dL (1.6-2.6); Osmolality,Calculated 301 (280-300); Potassium 3.5 mEq/L (3.5-5.1); Sodium 139 mEq/L (136-145); eGFR For African Americans > 60 (> 60); eGFR For Non-African Americans > 60 (> 60)
[2021-05-18] MEDS: Sucralfate 1 GM TABLET PO SCH ×2 (08:12→20:34)
[2021-05-18] MEDS: lisinopriL 10 MG TABLET PO SCH (08:12)
[2021-05-18] MEDS: Aspirin Enteric Coated 81 MG Tablet PO SCH (08:12)
[2021-05-18] MEDS: Bumetanide 1 MG/4 ML VIAL IVP SCH ×2 (08:12→16:47)
[2021-05-18] MEDS: Insulin LISPRO 300 UNITS/3 ML VIAL SUBQ SCH ×4 (08:13→20:25)
[2021-05-18] MEDS ORDERED: *HR* OxyCODONE Immed Rel 5 MG TABLET PO PRN (14:28)
[2021-05-18] MEDS: QUEtiapine Fumarate 25 MG TABLET PO SCH (20:33)
[2021-05-18] MEDS: Insulin DETEMIR 100 UNIT/ML X5UNITS SUBQ SCH (20:34)
[2021-05-19 03:42] VITALS: TEMP 98.1
[2021-05-19 03:42] LABS: Basophils % 0.5 %; Eosinophils # 0.3 K/mcL (0.0-0.6); Hematocrit 30.9 % (35.3-44.9); Hemoglobin 9.7 g/dL (11.5-15.4); Immature Granulocytes % 1.3 % (0-4); Lymphocytes # 1.5 K/mcL (0.6-4.6); Lymphocytes % 19.5 %; Mean Corpuscular HGB Conc 31.4 g/dL (31.6-35.5); Mean Corpuscular Hemoglobin 32.2 pg (28.0-33.3); Mean Corpuscular Volume 102.7 fL (83.0-100.0); Mean Platelet Volume 10.8 fL (9.4-12.4); Monocytes # 0.8 K/mcL (0.0-1.3); Neutrophils # 4.9 K/mcL (1.6-8.9); Platelet Count 226 K/mcL (140-400); Red Blood Count 3.01 M/mcL (3.82-4.97); Segmented Neutrophils % 64.7 %; White Blood Count 7.5 K/mcL (4.3-11.1)
[2021-05-19 04:06] LABS: BUN/Creatinine Ratio 21 (6-26); Blood Urea Nitrogen 17 mg/dL (6-20); Calcium 9.4 mg/dL (8.6-10.3); Carbon Dioxide 40 mEq/L (23-29); Chloride 92 mEq/L (98-107); Glucose 252 mg/dL (70-105); Magnesium 1.8 mg/dL (1.6-2.6); Osmolality,Calculated 296 (280-300); Potassium 3.5 mEq/L (3.5-5.1); Sodium 138 mEq/L (136-145); eGFR For African Americans > 60 (> 60); eGFR For Non-African Americans > 60 (> 60)
[2021-05-19] MEDS: Oxymetazoline Nasal SPRAY BOTTLE 15ML NS SCH (05:45)
[2021-05-19 06:50] VITALS: O2SAT 98
[2021-05-19] MEDS: Insulin LISPRO 300 UNITS/3 ML VIAL SUBQ SCH (08:09)
[2021-05-19] MEDS: Sucralfate 1 GM TABLET PO SCH (08:09)
[2021-05-19] MEDS: lisinopriL 10 MG TABLET PO SCH (08:10)
[2021-05-19 08:11] VITALS: BP 111/66; PULSE 83
[2021-05-19] MEDS: Bumetanide 1 MG/4 ML VIAL IVP SCH (08:11)
[2021-05-19 10:04] LABS: Influenza A PCR Negative (Negative); Influenza B PCR Negative (Negative); Resp. Syncytial Virus PCR Negative (Negative)
[2021-05-19 10:05] LABS: SARS-CoV-2 by PCR (In House) Negative (Negative)
== END 2021-05-19 12:12 | DRG 194 ==
LOC: 2NENU → SUATTDRO 23:38
PROVIDERS: ADMIT Internal Medicine; ATTEND Family Medicine